=== PATIENT | male | born 1960 | race Caucasian/White ===

== ENCOUNTER 2024-02-13 06:59 | Inpatient (IN) | payer OTHER ==
[~2024-02-13] VITALS: Ht 157.5 cm; Wt 51.4 kg
[2024-02-13] VITALS (32 sets, daily range): BP systolic 75–146; BP diastolic 30–125
[2024-02-13] MEDS ORDERED: CEFTRIAXONE/SODIUM CHLORIDE 1 GM/100 ML PIGGYBACK IV ONE (07:15)
[2024-02-13] MEDS ORDERED: SODIUM CHLORIDE 0.9% 1,000 ML IV ONE (07:15)
[2024-02-13 07:45] LABS: PH, VENOUS 7.485 (7.31-7.41)
[2024-02-13] MEDS ORDERED: DEXAMETHASONE SOD PHOS 4 MG/ML VIAL IV ONE (07:45)
[2024-02-13] MEDS ORDERED: MORPHINE SULFATE 4 MG/ML VIAL IV ONE (07:45)
[2024-02-13] MEDS ORDERED: diphenhydrAMINE HCL 50 MG/ML VIAL IV ONE (07:45)
[2024-02-13] MEDS ORDERED: ETOMIDATE 40 MG/20 ML VIAL IV ONE ×3 (07:45→08:45)
[2024-02-13 07:47] LABS: BASOPHILS 1.8 % (0-2); EOSINOPHILS 0.8 % (0-6); HEMATOCRIT 37.3 % (35.0-50.0); HEMOGLOBIN 12.5 g/dL (12.0-18.0); LYMPHOCYTES 25.1 % (24-44); MCH 33.6 (27-36); MCHC 33.5 g/dl (30-36); MCV 100.3 fl (81-99); MONOCYTES 6.3 % (0-12); PLATELET COUNT 160 K/uL (140-440); RBC 3.71 M/ul (4.3-5.7); RDW 17.4 (10.5-15.0)
[2024-02-13 08:13] LABS: ALBUMIN 2.6 g/dL (3.4-5.0); ALBUMIN/GLOBULIN RATIO 0.59 (1.1-2.4); ANION GAP 15.4 (7-21); BILIRUBIN, TOTAL 0.6 ng/dL (0.2-1.0); BUN/CREATININE RATIO 7.5 (6.0-28.6); CALCIUM 8.2 mg/dL (8.5-10.1); CREATININE, SERUM 0.4 mg/dL (0.70-1.30); MAGNESIUM 1.4 mg/dL (1.8-2.4); POTASSIUM 3.4 mmol/L (3.5-5.1)
[2024-02-13] MEDS ORDERED: SODIUM CHLORIDE 0.9% 500 ML IV PRN ×2 (09:30→10:30)
[2024-02-13] MEDS ORDERED: SODIUM CHLORIDE 0.9% 1,000 ML IV PRN (09:45)
[2024-02-13 10:25] LABS: BILIRUBIN, URINE NEGATIVE (negative); BLOOD/HGB, URINE NEGATIVE (Negative); KETONE, URINE NEGATIVE (Negative); LEUK ESTERASE, URINE SMALL (negative); NITRITE, URINE POSITIVE (negative)
[2024-02-13] MEDS ORDERED: NOREPINEPHRINE BITARTRATE 250 ML IV SCH (10:30)
[2024-02-13 10:33] LABS: CRYSTALS, URINE CALCIUM OXALATE 2+ (0-1+); RED BLOOD CELLS, URINE 0-1 /hpf (0-5); WHITE BLOOD CELLS, URINE 21-40 /HPF (0-5)
[2024-02-13 10:34] LABS: BACTERIA, URINE 3+ /hpf (negative); CASTS, URINE NONE SEEN \\lpf; COLLECTION TYPE, URINE VOID; REFLEX CULTURE, URINE Yes (No)
[2024-02-13 10:40] LABS: AMPHETAMINES, URINE NEGATIVE (NEGATIVE); BARBITURATES, URINE NEGATIVE (NEGATIVE); BENZODIAZEPINE, URINE NEGATIVE (NEGATIVE); BUPRENORPHINE, URINE NEGATIVE (NEGATIVE); CANNABINOID, URINE NEGATIVE (NEGATIVE); COCAINE, URINE NEGATIVE (NEGATIVE); ECSTASY, URINE NEGATIVE (NEGATIVE); FENTANYL, URINE NEGATIVE (NEGATIVE); METHADONE, URINE NEGATIVE (NEGATIVE); OPIATES, URINE NEGATIVE (NEGATIVE); OXYCODONE, URINE NEGATIVE (NEGATIVE); PHENCYCLIDINE, URINE NEGATIVE (NEGATIVE)
--- NOTE | 2024-02-13 11:13 | EKG ---
[facility] [address] [place], [place] [address] Signed Normal sinus rhythm No previous ECGs available Confirmed by Isma Brenner MD ([id number]) on 02/13/2024 11:13:01 AM Electronically Signed By: ISMA BRENNER MD 02/13/24 1113 PATIENT NAME: MELA MICHELLE Electrocardiogram DATE OF : 56 PHYSICIAN: ISMA BRENNER MD REPORT #: [id number] REPORT IS CONFIDENTIAL AND NOT TO BE RELEASED WITHOUT AUTHORIZATION
[2024-02-13] MEDS ORDERED: FOLIC ACID 1 MG/0.2 ML ML IV SCH (11:45)
[2024-02-13] MEDS ORDERED: LORazepam 2 MG/ML VIAL IV/IM PRN (11:45)
[2024-02-13] MEDS ORDERED: THIAMINE HCL 200 MG/2 ML VIAL IV SCH (11:45)
[2024-02-13] MEDS ORDERED: PHARMACY RENAL DOSE ADJUSTMENT 1 DOSE MISC PO SCH (12:00)
[2024-02-13] MEDS ORDERED: MAGNESIUM SULFATE 2 GM/50 ML BAG IV SCH (12:15)
[2024-02-13] MEDS ORDERED: POTASSIUM CHLORIDE 10 MEQ TABCR PO ONE (13:45)
[2024-02-13] MEDS ORDERED: IBUPROFEN 400 MG TAB PO PRN (15:00)
[2024-02-13] MEDS ORDERED: LACTATED RINGER'S 1,000 ML IV ONE (17:00)
[2024-02-13] MEDS ORDERED: PIPERACILLIN/TAZOBACTAM 3.375 GM in DEXTROSE 5% 100 ML IV SCH (22:00)
[2024-02-13] MEDS ORDERED: NICOTINE 21 MG/24 HR 1 EA TDSY TD SCH (23:00)
[2024-02-14] VITALS (32 sets, daily range): BP systolic 73–130; BP diastolic 46–88
[2024-02-14 05:46] LABS: BASOPHILS 0.2 % (0-2); HEMATOCRIT 29.7 % (35.0-50.0); LYMPHOCYTES 12.5 % (24-44); MCH 33.8 (27-36); MCHC 33.6 g/dl (30-36); MCV 100.7 fl (81-99); MONOCYTES 7.4 % (0-12); NEUTROPHILS 79.9 % (39-80); PLATELET COUNT 130 K/uL (140-440); RBC 2.95 M/ul (4.3-5.7); RDW 17.3 (10.5-15.0)
[2024-02-14 05:59] LABS: BUN/CREATININE RATIO 7.14 (6.0-28.6); CALCIUM 7.5 mg/dL (8.5-10.1); CREATININE, SERUM 0.56 mg/dL (0.70-1.30); MAGNESIUM 1.6 mg/dL (1.8-2.4); PHOSPHORUS, INORGANIC 2.7 mg/dL (2.5-4.9)
[2024-02-14] MEDS ORDERED: MAGNESIUM SULFATE 2 GM/50 ML BAG IV SCH (06:30)
[2024-02-14] MEDS ORDERED: ENOXAPARIN SODIUM 40 MG/0.4 ML SYR SUB-Q SCH (09:00)
[2024-02-14] MEDS ORDERED: ALBUTEROL/IPRATROPIUM 3 ML NEB INH PRN (09:15)
[2024-02-14] MEDS ORDERED: LACTATED RINGER'S 1,000 ML IV ONE (16:45)
[2024-02-14] MEDS ORDERED: ACETAMINOPHEN 500 MG TAB PO PRN (22:15)
[2024-02-15] VITALS (10 sets, daily range): BP systolic 100–144; BP diastolic 62–81
[2024-02-15 05:23] LABS: BASOPHILS 3.2 % (0-2); EOSINOPHILS 0.4 % (0-6); HEMATOCRIT 30.6 % (35.0-50.0); HEMOGLOBIN 10.2 g/dL (12.0-18.0); LYMPHOCYTES 24.5 % (24-44); MCH 33.3 (27-36); MCHC 33.4 g/dl (30-36); MCV 99.8 fl (81-99); MONOCYTES 6.1 % (0-12); NEUTROPHILS 65.8 % (39-80); PLATELET COUNT 108 K/uL (140-440); RBC 3.07 M/ul (4.3-5.7); RDW 17.4 (10.5-15.0)
[2024-02-15 05:35] LABS: ANION GAP 12.7 (7-21); BUN/CREATININE RATIO 4.08 (6.0-28.6); CALCIUM 7.8 mg/dL (8.5-10.1); CREATININE, SERUM 0.49 mg/dL (0.70-1.30); MAGNESIUM 1.6 mg/dL (1.8-2.4); PHOSPHORUS, INORGANIC 2.9 mg/dL (2.5-4.9); POTASSIUM 3.7 mmol/L (3.5-5.1)
[2024-02-15] MEDS ORDERED: MAGNESIUM SULFATE 2 GM/50 ML BAG IV SCH (07:00)
[2024-02-15] MEDS ORDERED: POLYETHYLENE GLYCOL 3350 1 PACKET PO ONE (07:30)
[2024-02-16] VITALS (8 sets, daily range): BP systolic 100–124; BP diastolic 65–77
[2024-02-16 05:33] LABS: BASOPHILS 0.8 % (0-2); HEMATOCRIT 32.3 % (35.0-50.0); HEMOGLOBIN 10.9 g/dL (12.0-18.0); LYMPHOCYTES 26.3 % (24-44); MCH 33.5 (27-36); MCHC 33.6 g/dl (30-36); MCV 99.6 fl (81-99); MONOCYTES 8.1 % (0-12); NEUTROPHILS 63.8 % (39-80); PLATELET COUNT 121 K/uL (140-440); RBC 3.24 M/ul (4.3-5.7); RDW 17.3 (10.5-15.0)
[2024-02-16 05:47] LABS: ANION GAP 14.9 (7-21); BUN/CREATININE RATIO 6.38 (6.0-28.6); CALCIUM 8.4 mg/dL (8.5-10.1); CREATININE, SERUM 0.47 mg/dL (0.70-1.30); MAGNESIUM 1.5 mg/dL (1.8-2.4); PHOSPHORUS, INORGANIC 3.6 mg/dL (2.5-4.9); POTASSIUM 3.9 mmol/L (3.5-5.1)
[2024-02-16] MEDS ORDERED: MAGNESIUM SULFATE 2 GM/50 ML BAG IV SCH (07:00)
[2024-02-16] MEDS ORDERED: CEFTRIAXONE/SODIUM CHLORIDE 1 GM/100 ML PIGGYBACK IV SCH (09:00)
[2024-02-17 05:14] VITALS: BP 125/67
[2024-02-17 05:27] VITALS: BP 125/67
[2024-02-17 09:28] VITALS: BP 105/54
[2024-02-17] MEDS ORDERED: ACETAMINOPHEN 500 MG TAB PO PRN (09:45)
[2024-02-17 10:00] VITALS: BP 106/62
[2024-02-17] MEDS ORDERED: SPIRIVA18 MCG INH (10:01)
[2024-02-17] MEDS ORDERED: VENTOLIN HFA18 GM INH (10:02)
[2024-02-17] MEDS ORDERED: LEVOFLOXACIN750 MG PO (10:03)
[2024-02-17 12:03] VITALS: BP 106/62
== END 2024-02-17 13:03 | disposition home or self-care (01) | DRG 871 ==
LOC: ED 06:59 → CCU 11:39 → MS 02-15 16:00
PROVIDERS: Emergency Medicine; Family Medicine; ADMIT Student in an Organized Health Care Education/Training Program; ATTEND Student in an Organized Health Care Education/Training Program
PROC: 3E03329 Introduction of Other Anti-infective into Peripheral Vein, Percutaneous Approach (ICD-10-PCS; principal; 2024-02-13)
PROC: 3E033XZ Introduction of Vasopressor into Peripheral Vein, Percutaneous Approach (ICD-10-PCS; 2024-02-13)
PROC: 05HY33Z Insertion of Infusion Device into Upper Vein, Percutaneous Approach (ICD-10-PCS; 2024-02-13)
DX: A41.9 Sepsis, unspecified organism (principal); R65.21 Severe sepsis with septic shock; N12 Tubulo-interstitial nephritis, not specified as acute or chronic; Z59.00 Homelessness unspecified; E87.0 Hyperosmolality and hypernatremia; E87.20 Acidosis, unspecified; J98.11 Atelectasis; Z66 Do not resuscitate; L89.152 Pressure ulcer of sacral region, stage 2; J44.9 Chronic obstructive pulmonary disease, unspecified; I73.9 Peripheral vascular disease, unspecified; E87.6 Hypokalemia; E83.42 Hypomagnesemia; K44.9 Diaphragmatic hernia without obstruction or gangrene; F10.10 Alcohol abuse, uncomplicated; F22 Delusional disorders; I50.9 Heart failure, unspecified; Z89.511 Acquired absence of right leg below knee; Z89.612 Acquired absence of left leg above knee; Z99.3 Dependence on wheelchair; Z95.1 Presence of aortocoronary bypass graft; R68.0 Hypothermia, not associated with low environmental temperature
CPT/HCPCS: 36415; 36592; 70450; 71045; 73560; 74177; 80048; 80053; 80307; 81001; 82010; 82040; 82140; 82553; 82803; 83605; 83735; 83880; 84100; 85025; 87040; 87088; 94640; 94667; 94760; 94762; 97110; 97161; 97165; A9270; G0480; J0696; J1100; J1200; J1650; J2060; J2543; J3411; J3475; J7030; J7040; J7121; Q9967

== ENCOUNTER 2024-02-19 04:01 | Emergency (ER) | payer OTHER ==
[~2024-02-19] VITALS: Ht 157.5 cm; Wt 45.0 kg
[~2024-02-19 04:01] MED LIST: LEVOFLOXACIN750 MG PO; SPIRIVA18 MCG INH; VENTOLIN HFA18 GM INH
--- OUTSIDE RECORDS SUMMARY | 2024-02-19 04:02 | XMS ---
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 ED/UCC VISIT TRACKING (12 MO.) 02/19/2024 04:02 [facility] [place] TYPE: Emergency COMPLAINT: - MEDICAL 02/13/2024 06:59 [facility] [place] TYPE: Emergency COMPLAINT: - FALL 02/02/2024 16:35 [facility] Geoffrey HECK (Geoffrey Hale) TYPE: Emergency DIAGNOSES: - Pain in left leg - Pain in right leg - Vomiting, unspecified - bilateral leg pain,vomiting - Emesis - Leg Pain 01/01/2024 18:20 [facility] (Geoffrey Hale) TYPE: Emergency DIAGNOSES: - Acute respiratory failure with hypoxia - Alcohol use, unspecified with intoxication, uncomplicated - Chronic obstructive pulmonary disease with (acute) exacerbation - Abdominal Pain - Altered Mental Status 09/22/2023 23:34 [facility] [place] TYPE: Emergency DIAGNOSES: - Headache, unspecified 09/10/2023 22:45 [facility] [place] TYPE: Emergency 08/26/2023 18:34 [facility] [place] TYPE: Emergency DIAGNOSES: - Unspecified injury of head, initial encounter 07/15/2023 09:55 [facility] [place] TYPE: Emergency DIAGNOSES: 29804. Worms 49390. Worms/helminths 63840. Cellulitis of right lower limb 02918. Other injury of unspecified body region, initial encounter INPATIENT VISIT TRACKING (12 MO.) 02/13/2024 11:39 [facility] [place] TYPE: Medical Surgical COMPLAINT: - SEPSIS/UTI DIAGNOSES: - Acidosis, unspecified - Acquired absence of left leg above knee - Acquired absence of right leg below knee - Alcohol abuse, uncomplicated - Atelectasis - Chronic obstructive pulmonary disease, unspecified - Delusional disorders - Dependence on wheelchair - Diaphragmatic hernia without obstruction or gangrene - Do not resuscitate - Heart failure, unspecified - Homelessness unspecified - Hyperosmolality and hypernatremia - Hypokalemia - Hypomagnesemia - Peripheral vascular disease, unspecified - Presence of aortocoronary bypass graft - Pressure ulcer of sacral region, stage 2 - Sepsis, unspecified organism - Severe sepsis with septic shock - Tubulo-interstitial nephritis, not specified as acute or chronic 01/01/2024 18:20 [facility] (Geoffrey Hale) TYPE: Medical Surgical DIAGNOSES: - Acute respiratory failure with hypoxia - Alcohol dependence with withdrawal delirium - Alcohol use, unspecified with intoxication, uncomplicated - Anxiety disorder, unspecified - Chronic obstructive pulmonary disease with (acute) exacerbation - Encounter for palliative care - Homelessness unspecified - Nicotine dependence, cigarettes, uncomplicated - Non-pressure chronic ulcer of unspecified part of right lower leg limited to breakdown of skin - Other malaise - Other specified counseling - Phantom limb syndrome with pain - Unspecified protein-calorie malnutrition - Unspecified severe protein-calorie malnutrition - Unspecified toxic encephalopathy 09/10/2023 22:45 [facility] TYPE: Surgery DIAGNOSES: - Alcohol dependence with withdrawal, uncomplicated - Alcoholic cirrhosis of liver without ascites - Cellulitis of right lower limb - Homelessness unspecified - Hypokalemia - Hypomagnesemia - Moderate protein-calorie malnutrition - Nausea with vomiting, unspecified - Pneumonitis due to inhalation of food and vomit - Sepsis, unspecified organism - Severe sepsis with septic shock 04/28/2023 17:56 [facility] TYPE: General Medicine DIAGNOSES: . Alcohol use, unspecified with withdrawal, uncomplicated . Cellulitis of right lower limb [email or web address]
[2024-02-19] MEDS ORDERED: KETOROLAC TROMETHAMINE 30 MG/ML VIAL IM ONE (04:30)
[2024-02-19 06:45] VITALS: BP 118/68
== END 2024-02-19 06:45 | disposition left against medical advice (07) ==
LOC: ED 04:01
DX: K40.90 Unilateral inguinal hernia, without obstruction or gangrene, not specified as recurrent (principal); F10.129 Alcohol abuse with intoxication, unspecified; I70.221 Atherosclerosis of native arteries of extremities with rest pain, right leg; M62.269 Nontraumatic ischemic infarction of muscle, unspecified lower leg; Z95.828 Presence of other vascular implants and grafts; Z53.29 Procedure and treatment not carried out because of patient's decision for other reasons; Z59.00 Homelessness unspecified; Z99.3 Dependence on wheelchair; Z79.899 Other long term (current) drug therapy
CPT/HCPCS: 80053; 80307; 83605; 85025; 85379; 96372; 99283; G0480; J1885

== ENCOUNTER 2024-04-06 20:47 | Inpatient (IN) | payer MEDICARE ==
[~2024-04-06] VITALS: Ht 157.5 cm; Wt 49.2 kg
--- OUTSIDE RECORDS SUMMARY | 2024-04-06 20:48 | XMS ---
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 ED/UCC VISIT TRACKING (12 MO.) 04/06/2024 20:48 [facility] [place] TYPE: Emergency COMPLAINT: - EDWARDS BITE 02/25/2024 16:58 [facility] TYPE: Emergency DIAGNOSES: - Alcohol use, unspecified with intoxication, unspecified - Non-pressure chronic ulcer of back with unspecified severity - Rectal Pain 02/24/2024 07:32 [facility] [place] (Geoffrey Hale) TYPE: Emergency DIAGNOSES: - Alcohol use, unspecified with intoxication, uncomplicated - Alcohol Intoxication 02/23/2024 10:10 [facility] [place] (Geoffrey Hale) TYPE: Emergency DIAGNOSES: - Acquired absence of left leg above knee - Acquired absence of right leg below knee - Alcohol dependence, uncomplicated - Other injury of unspecified body region, initial encounter - Leg Pain (Non-traumatic) - wound check 02/22/2024 14:27 [facility] [place] (Geoffrey Hale) TYPE: Emergency DIAGNOSES: - Procedure and treatment not carried out because of patient's decision for other reasons - ambulance - Extremity Pain 02/19/2024 04:02 [facility] [place] TYPE: Emergency COMPLAINT: - MEDICAL DIAGNOSES: - Alcohol abuse with intoxication, unspecified - Atherosclerosis of [place] arteries of extremities with rest pain, right leg - Dependence on wheelchair - Homelessness unspecified - Nontraumatic ischemic infarction of muscle, unspecified lower leg - Other fci (current) drug therapy - Presence of other vascular implants and grafts - Procedure and treatment not carried out because of patient's decision for other reasons - Right lower quadrant pain - Unilateral inguinal hernia, without obstruction or gangrene, not specified as recurrent 02/13/2024 06:59 [facility] [place] TYPE: Emergency COMPLAINT: - FALL 02[facility]02/2024 16[facility] DIAGNOSES: - Pain in left leg - Pain in right leg - Vomiting, unspecified - bilateral leg pain,vomiting - Emesis - Leg Pain 01/01/2024 18:20 [facility] (Geoffrey Hale) TYPE: Emergency DIAGNOSES: - Acute respiratory failure with hypoxia - Alcohol use, unspecified with intoxication, uncomplicated - Chronic obstructive pulmonary disease with (acute) exacerbation - Abdominal Pain - Altered Mental Status 09/22/2023 23:34 [facility] [place] TYPE: Emergency DIAGNOSES: - Headache, unspecified 09/10/2023 22:45 [facility] [place] TYPE: Emergency 08/26/2023 18:34 [facility] [place] TYPE: Emergency DIAGNOSES: - Unspecified injury of head, initial encounter 07/15/2023 09:55 [facility] [place] TYPE: Emergency DIAGNOSES: 96718. Worms 13158. Worms/helminths 39997. Cellulitis of right lower limb . Other injury of unspecified body region, initial encounter INPATIENT VISIT TRACKING (12 MO.) 02/13/2024 11:39 [facility] [place] TYPE: Medical Surgical COMPLAINT: - SEPSIS/UTI DIAGNOSES: - Acidosis, unspecified - Acidosis, unspecified - Acquired absence of left leg above knee - Acquired absence of left leg above knee - Acquired absence of right leg below knee - Acquired absence of right leg below knee - Alcohol abuse, uncomplicated - Alcohol abuse, uncomplicated - Atelectasis - Atelectasis - Chronic obstructive pulmonary disease, unspecified - Chronic obstructive pulmonary disease, unspecified - Delusional disorders - Delusional disorders - Dependence on wheelchair - Dependence on wheelchair - Diaphragmatic hernia without obstruction or gangrene - Diaphragmatic hernia without obstruction or gangrene - Do not resuscitate - Do not resuscitate - Heart failure, unspecified - Heart failure, unspecified - Homelessness unspecified - Homelessness unspecified - Hyperosmolality and hypernatremia - Hyperosmolality and hypernatremia - Hypokalemia - Hypokalemia - Hypomagnesemia - Hypomagnesemia - Hypothermia, not associated with low environmental temperature - Hypothermia, not associated with low environmental temperature - Peripheral vascular disease, unspecified - Peripheral vascular disease, unspecified - Presence of aortocoronary bypass graft - Presence of aortocoronary bypass graft - Pressure ulcer of sacral region, stage 2 - Pressure ulcer of sacral region, stage 2 - Sepsis, unspecified organism - Severe sepsis with septic shock - Severe sepsis with septic shock - Tubulo-interstitial nephritis, not specified as acute or chronic - Tubulo-interstitial nephritis, not specified as acute or chronic 01/01/2024 18:20 [facility] (Geoffrey Hale) TYPE: Medical Surgical [...] malnutrition - Unspecified toxic encephalopathy 09/10/2023 22:45 [facility] TYPE: Surgery DIAGNOSES: - Alcohol dependence with withdrawal, uncomplicated - Alcoholic cirrhosis of liver without ascites - Cellulitis of right lower limb - Homelessness unspecified - Hypokalemia - Hypomagnesemia - Moderate protein-calorie malnutrition - Nausea with vomiting, unspecified - Pneumonitis due to inhalation of food and vomit - Sepsis, unspecified organism - Severe sepsis with septic shock 04/28/2023 17:56 [facility] TYPE: General Medicine DIAGNOSES: 26956. Alcohol use, unspecified with withdrawal, uncomplicated [id number]. Cellulitis of right lower limb [email or web address]
[2024-04-06] MEDS ORDERED: diphenhydrAMINE HCL 50 MG/ML VIAL IV ONE (23:00)
[2024-04-06] MEDS ORDERED: DEXAMETHASONE SOD PHOS 4 MG/ML VIAL IV ONE (23:00)
[2024-04-06 23:11] LABS: ALBUMIN 2.4 g/dL (3.4-5.0); ALBUMIN/GLOBULIN RATIO 0.53 (1.1-2.4); ANION GAP 28.2 (7-21); BILIRUBIN, TOTAL 1.1 ng/dL (0.2-1.0); BUN/CREATININE RATIO 11.59 (6.0-28.6); CALCIUM 7.3 mg/dL (8.5-10.1); CREATININE, SERUM 0.69 mg/dL (0.70-1.30); POTASSIUM 3.2 mmol/L (3.5-5.1); PROTEIN, TOTAL 6.9 g/dL (6.4-8.2)
[2024-04-06] MEDS ORDERED: DEXTROSE 50% 50 ML SYR IV ONE (23:30)
[2024-04-06] MEDS ORDERED: SODIUM CHLORIDE 0.9% 500 ML IV PRN (23:45)
[2024-04-06] MEDS ORDERED: IBUPROFEN 600 MG TAB PO ONE (23:45)
[2024-04-06] MEDS ORDERED: ACETAMINOPHEN 500 MG TAB PO ONE (23:45)
[2024-04-07] VITALS (47 sets, daily range): BP systolic 65–171; BP diastolic 33–104
[2024-04-07] MEDS ORDERED: MAGNESIUM SULFATE 2 GM/50 ML BAG IV ONE (00:05)
[2024-04-07] MEDS ORDERED: DAPTOmycin 500 MG/10 ML VIAL ONE (00:09)
[2024-04-07] MEDS ORDERED: CEFTRIAXONE/SODIUM CHLORIDE 2 GM/100 ML PIGGYBACK IV ONE (00:15)
[2024-04-07] MEDS ORDERED: LORazepam 2 MG/ML VIAL IV ONE (00:15)
[2024-04-07] MEDS ORDERED: DAPTOmycin 500 MG/10 ML VIAL IV ONE (00:45)
[2024-04-07 01:03] LABS: BASOPHILS 0.1 % (0-2); EOSINOPHILS 0.1 % (0-6); HEMATOCRIT 28.8 % (35.0-50.0); HEMOGLOBIN 9.4 g/dL (12.0-18.0); LYMPHOCYTES 1.5 % (24-44); MCH 31.8 (27-36); MCHC 32.8 g/dl (30-36); MCV 96.8 fl (81-99); MONOCYTES 3.1 % (0-12); NEUTROPHILS 95.2 % (39-80); PLATELET COUNT 145 K/uL (140-440); RBC 2.97 M/ul (4.3-5.7); RDW 20.1 (10.5-15.0)
[2024-04-07] MEDS ORDERED: SODIUM CHLORIDE 0.9% 1,000 ML IV ONE (01:45)
[2024-04-07] MEDS ORDERED: ETOMIDATE 40 MG/20 ML VIAL ONE (01:59)
[2024-04-07] MEDS ORDERED: ETOMIDATE 40 MG/20 ML VIAL IV ONE (02:00)
[2024-04-07] MEDS ORDERED: SODIUM CHLORIDE 0.9% 1,000 ML IV SCH ×4 (02:45→08:00)
[2024-04-07] MEDS ORDERED: ACETAMINOPHEN 325 MG TAB PO PRN ×2 (02:45→08:00)
[2024-04-07] MEDS ORDERED: ondansetron HCL 4 MG/2 ML VIAL IV PRN ×2 (02:45→08:00)
[2024-04-07] MEDS ORDERED: KETOROLAC TROMETHAMINE 15 MG/ML VIAL IV PRN (03:00)
[2024-04-07 03:30] LABS: BILIRUBIN, URINE NEGATIVE (negative); BLOOD/HGB, URINE TRACE-I (Negative); KETONE, URINE TRACE (Negative); LEUK ESTERASE, URINE SMALL (negative); NITRITE, URINE POSITIVE (negative); PH, URINE 5.5 (5-7)
[2024-04-07] MEDS ORDERED: PREGABALIN 50 MG CAP PO ONE (03:30)
[2024-04-07 03:40] LABS: RED BLOOD CELLS, URINE 0-1 /hpf (0-5)
[2024-04-07 03:41] LABS: BACTERIA, URINE 2+ /hpf (negative); CASTS, URINE HYALINE 1+ \\lpf; COLLECTION TYPE, URINE CLEAN CATCH; CRYSTALS, URINE NONE SEEN (0-1+); EPITHELIAL CELLS, URINE SQUAMOUS 2+ /lpf (0-1+); REFLEX CULTURE, URINE No (No); WHITE BLOOD CELLS, URINE 21-40 /HPF (0-5)
--- NOTE | 2024-04-07 04:30 | NUR ---
REPORT RECEIVED FROM MUD TANK OPERATOR ADAM. pt TRANSFERRED TO CCU 130 VIA STRETCHER. TRANSFERRED TO HOSPITAL BED 2PA WITH DRAW SHEET. INCONTINENT OF STOOL, ATTENDS CHANGED, BARRIER CREAM APPLIED. pt COMPLAINS OF PAIN IN RIGHT STUMP, DRESSING CDI WITH FARA NUGENT. pt STATES "I JUST WANT TO HAVE THIS LEG CHOPPED OFF LIKE THE LEFT". REQUESTS TYLENOL, pt EDUCATED ON TYLENOL ADMINISTRATION IN ER, pt NOW STATES "IT'S KICKING IN NOW". CLOSING EYES. PICTURES OF WOUNDS, ROLF AREA PLACED IN CHART. ASSESSMENT COMPLETE. SPO2 DROPS TO LOW 80S ON RA, 2L OXYGEN BY NC APPLIED. SANDWICH BOX PROVIDED. ICE WATER IN REACH. TRIPLE LUMEN FLUSHED WNL, BRISK BLOOD RETURN. IV IN LEFT ARM SL. BED ALARM ON. BED IN LOW POSITION. CALL LIGHT IN REACH. URINAL PROVIDED.
--- NOTE | 2024-04-07 05:14 | NUR ---
SPO2 NOW 96-98% WITH 2L OXYGEN BY NC IN PLACE, TITRATED TO RA. pt RESTING IN BED WITH EYES CLOSED, BREATHING UNLABORED.
--- NOTE | 2024-04-07 05:26 | NUR ---
MELA IS ON AND OFF OXYGEN WHEN HE SLEEPS DUE TO SPO2 DESATURATIONS.
--- NOTE | 2024-04-07 05:58 | NUR ---
PHONE CALL TO MD BY EMBEDDED SOFTWARE DEVELOPMENT ENGINEER, UPDATED ON BP 76/49 (59), HR 75. pt ALERT AND ORIENTED. NEW ORDERS RECEIVED FOR LABS, IVF BOLUS. ORDERS VERIFIED USING REPEAT BACK METHOD. LABS DRAWN FROM IJ PER PROTOCOL. IVF BOLUS NOW INFUSING. pt RESTING IN BED WITH EYES CLOSED, BREATHING EQUAL AND UNLABORED. NO DISTRESS NOTED.
[2024-04-07 06:01] LABS: BASOPHILS 0.3 % (0-2); HEMATOCRIT 27.8 % (35.0-50.0); HEMOGLOBIN 9.2 g/dL (12.0-18.0); LYMPHOCYTES 2.2 % (24-44); MCH 31.8 (27-36); MCV 96.4 fl (81-99); NEUTROPHILS 93.5 % (39-80); PLATELET COUNT 127 K/uL (140-440); RBC 2.89 M/ul (4.3-5.7); RDW 19.9 (10.5-15.0)
[2024-04-07 06:18] LABS: ALBUMIN 1.7 g/dL (3.4-5.0); ALBUMIN/GLOBULIN RATIO 0.46 (1.1-2.4); ANION GAP 12.7 (7-21); BILIRUBIN, TOTAL 1.2 ng/dL (0.2-1.0); BUN/CREATININE RATIO 14.1 (6.0-28.6); CALCIUM 6.8 mg/dL (8.5-10.1); CREATININE, SERUM 0.78 mg/dL (0.70-1.30); MAGNESIUM 2.3 mg/dL (1.8-2.4); PHOSPHORUS, INORGANIC 4.8 mg/dL (2.5-4.9); POTASSIUM 2.7 mmol/L (3.5-5.1); PROTEIN, TOTAL 5.4 g/dL (6.4-8.2)
--- NOTE | 2024-04-07 06:42 | NUR ---
PHONE CALL TO , NOTIFIED OF POTASSIUM, MG LABS. TO PLACE ORDERS.
[2024-04-07] MEDS ORDERED: MAGNESIUM SULFATE 0 ML IV ONE (06:58)
--- NOTE | 2024-04-07 07:10 | NUR ---
pt SLEEPING, AWAKENS TO VOICE, IRRITABLE. LARGE INCONTINENCE OF URINE, ATTENDS AND CHUX CHANGED. REPOSITIONED WITH PILLOW UNDER RIGHT HIP PER REQUEST. WARM BLANKET PROVIDED. IVF INFUSING WNL. BED ALARM ON. CALL LIGHT IN REACH.
--- NOTE | 2024-04-07 08:01 | NUR ---
REPORT RECEIVED FROM HILARIO FREITAS. PT RESTING IN BED WITH EYES CLOSED, RESP EVEN AND UNLABORED. RESPONDS TO VERBAL STIMULI, SOMEWHAT IRRITABLE BUT GOES BACK TO SLEEP. ASSESSMENT DONE, BP'S NOTED, WILL DISCUSS WITH .
--- NOTE | 2024-04-07 08:14 | NUR ---
DISCUSSED BP WITH MD, WILL CONT TO MONITOR FOR NOW.
[2024-04-07] MEDS ORDERED: ENOXAPARIN SODIUM 40 MG/0.4 ML SYR SUB-Q SCH (09:00)
[2024-04-07] MEDS ORDERED: POTASSIUM CHLORIDE 40 MEQ,LIDOCAINE HCL 1% 40 MG in DEXTROSE 5% 250 ML IV ONE (09:00)
[2024-04-07] MEDS ORDERED: DAPTOmycin 500 MG/10 ML VIAL IV SCH ×4 (09:00→21:00)
--- NOTE | 2024-04-07 09:51 | NUR ---
PT DENIES PAIN MED OFFER, GRUMPY THIS AM WHEN NURSE OFFERED COFFEE, BREAKFAST TO PT HOB UP AND AM MEDS GIVEN, CALL LIGHT IN REACH.
--- NOTE | 2024-04-07 10:40 | NUR ---
ATTEMPT TO SPEAK WITH PATIENT. LOUDLY KNOCKED, CALL HIS NAME. HE DOES NOT OPEN HIS EYES. STAFF STATE HE WAKES EASILY FOR THEM. NOTIFIED HE DID NOT RESPOND WHEN IN ROOM, APPEARS TO BE SLEEPING. WILL RETURN FOR ASSESSMENT LATER TODAY.
--- NOTE | 2024-04-07 11:05 | NUR ---
PT CALL LIGHT ON, REQUESTING ICE WATER. FRESH ICE WATER PROVIDED. CALL LIGHT WITHIN REACH, DENIES ANY FURTHER NEEDS AT THIS TIME.
--- NOTE | 2024-04-07 11:13 | NUR ---
IN ROOM WITH DR AND PT, PT C/O PAIN IN LEGS AND USES DRUGS AND ETOH FOR COPING AND PAIN. 3 DAYS AGO LAST ETOH. ADMITS TO SMOKING METH RECENTLY, 2 DAYS AGO. SMOKE CIGARRETTES. PT IS RESTLESS, AND AGITATED. REPORTS LOOSE STOOLS. BED ALARM ON, CALL LIGHT IN REACH. HR 73/52 (60) HR 70 - DR IN ROOM.
--- NOTE | 2024-04-07 11:47 | NUR ---
VISITED DURING SPIRITUAL CARE ROUNDS. PT DENIES SPIRITUAL CARE NEEDS, DESCRIBED DESIRES FOR TREATMENT, ACKNOWLEDGE USE OF SUBSTANCES FOR PAIN CONTROL. NUCLEAR FUELS RESEARCH ENGINEER PROVIDED SUPPORTIVE PRESENCE, FACILITATED LIFE REVIEW, PROVIDED ANTICIPATORY GUIDANCE, PRAYER. PT EXPRESSED GRATITUDE, SARAH.
[2024-04-07] MEDS ORDERED: PHARMACY RENAL DOSE ADJUSTMENT 1 DOSE MISC PO SCH (12:00)
--- NOTE | 2024-04-07 12:43 | NUR ---
IN TO SEE PT AND DO ASSESSMENT, C/O PAIN. LYRICA GIVEN PER EMAR. PT HAS EATEN MOST OF HIS LUNCH, DENIES NEEDS AT THIS TIME.
[2024-04-07] MEDS ORDERED: TYLENOL EXTRA500 MG PO (12:59)
--- NOTE | 2024-04-07 12:59 | NUR ---
MED REC COMPLETE
[2024-04-07] MEDS ORDERED: PREGABALIN 50 MG CAP PO SCH (13:00)
--- NOTE | 2024-04-07 13:00 | NUR ---
PT WAS INC URINE, BED CHANGE AND BED BATH DONE. PT IS COMPLIANT WITH CARES, DOES C/O PAIN TO TOUCH ON HIP,BUTTOCKS AND SCROTAL AREA. BANDAGE ON LEG CDI, PT INFORMED OF WOUND CARE CONSULT AND WAITING ON WOUND NURSE AND HE IS AGREEABLE TO THAT. IVF BOLUS STARTED PER DR GOODEN INFUSING. PT REPOSITIONED ONTO LEFT SIDE.
--- NOTE | 2024-04-07 13:02 | NUR ---
UPON ENTERING ROOM, PATIENT STATES HE WON'T TALK WITH THIS NURSE UNLESS SOMEONE GETS HIM A PILL FOR HIS LEG. ERIKA RN, NOTIFIED. PATIENT IS HOMELESS. PREVIOUS HOSPITALIZATION ATTEMPT ASSISTANCE TO GET INTO INPT ETOH REHAB, HE REFUSED. HE WANTED TO GO BACK TO THE STREET. STATES HE NEVER GOT INTO THE [facility] AFTER LAST DC. HE DID STAY IN A [place] X3 NIGHTS THEN WAS BACK ON THE STREET. STATES HE TRIES TO STAY IN THE ASSISTED BUT SOMETIMES HE DOES NOT MAKE IT IN TIME. DISCUSSED POTENTIAL NEED FOR SNF, HE REFUSES TO GO TO SNF. STATES HE HAS GEN[facility]'S PHONE NUMBER WHEN INFORMED HIM [facility] COULD BE OF ASSISTANCE HE DOES NOT BELIEVE THEY WILL BE. DISCUSSED HIS NEED FOR A PCP. STATES HE IS AGREEABLE TO HAVE ASSISTANCE TO GET PCP. HE IS UPSET HE IS NO LONGER IN [place] BUT WILL NOT GO BACK, DAUGHTER LIVES IN [facility], BUT PREVIOUSLY STATED HE COULD NOT STAY WITH HER SHE LIVES IN SECOND FLOOR APARTMENT WITH YOUNG KIDS AND NO ELEVATOR FOR PATIENT TO USE. HE DOES HAVE A WHEELCHAIR. HE REQUESTS NOT TO GET A TON OF PAPER BECAUSE HE HAS NO WHERE TO KEEP IT. THE ONLY PLAN FOR DC HE IS CURRENTLY AGREEABLE TO IS TO HAVE PCP. HE PLANS TO DC TO THE STREET.
[2024-04-07] MEDS ORDERED: LORazepam 2 MG/ML VIAL IV/IM PRN (15:30)
[2024-04-07] MEDS ORDERED: THIAMINE HCL 100 MG,FOLIC ACID 1 MG,MULTIVITAMINS 10 ML in SODIUM CHLORIDE 0.9% 1,000 ML IV ONE (15:30)
[2024-04-07] MEDS ORDERED: LORazepam 1 MG TAB PO PRN (15:30)
--- NOTE | 2024-04-07 16:15 | NUR ---
PT'S WOUNDS ARE CURRENTLY COVERED. AFTER REVIEWING WOUND PHOTOGRAPHS. HE IS GOING TO REQUIRE A SURGICAL CONSULT FOR DEBRIDEMENT, DUE TO ESCHAR AND ADHERENT SLOUGH; THERE ARE ALSO SIGNS OF INFECTION. DEBRIDEMENT OF THIS WOUND IS NOT APPROPRIATE FOR A WOUND CARE NURSE AT THIS TIME.
--- NOTE | 2024-04-07 20:00 | NUR ---
REPORT RECEIVED FROM ZENA JAMES. pt RESTING IN BED AWAKE. IV BANANA BAG INFUSING CENTRAL LINE WNL. pt REQUESTS NICOTINE PATCH, ADDED TO EMAR PER PROTOCOL. CALL LIGHT IN REACH.
[2024-04-07] MEDS ORDERED: NICOTINE 21 MG/24 HR 1 EA TDSY TD SCH (20:15)
--- NOTE | 2024-04-07 21:20 | NUR ---
ASSESSMENT COMPLETE. IJ LUMENS FLUSHED WNL X 3. IV ANTIBIOTIC ADMINISTERED. pt COMPLAINS OF 10/10 PAIN IN RIGHT STUMP. PRN AND SCHEDULED MEDICATIONS ADMINISTERED, SEE EMAR. SANCHEZ IN ROOM DISCUSSING PLAN OF CARE WITH pt. pt YELLING, INSISTENT ON AMPUTATION OF RLE DUE TO PAIN. EDUCATION PROVIDED FROM MD, SURGEON TO FOLLOW. LARGE INCONTINENT VOID, ATTENDS, CHUX CHANGED, PAD PLACED IN BRIEF. pt REFUSES MALE PUREWICK. URINAL IN REACH. MILD TREMORS NOTED, pt DENIES ANY ADDITIONAL SX DTS. REPOSITIONED WITH PILLOW UNDER RIGHT HIP. pt REPOSITIONS SELF FURTHER ONTO PILLOW. CALL LIGHT AND PERSONAL SUPPLIES IN REACH. WARM BLANKETS PROVIDED. LIGHTS OFF IN ROOM.
--- NOTE | 2024-04-07 22:05 | NUR ---
CHECKED ON pt. RESTING IN BED AWAKE, DENIES ANY NEEDS. CALL LIGHT IN REACH. IVF INFUSING CENTRAL LINE WNL.
--- NOTE | 2024-04-07 23:00 | NUR ---
ROUNDED ON pt. RESTING IN BED WATCHING TV. DENIES NEEDS. CALL LIGHT IN REACH.
[2024-04-08] VITALS (24 sets, daily range): BP systolic 74–114; BP diastolic 54–75
--- NOTE | 2024-04-08 00:30 | NUR ---
pt AWAKE. INCONTINENT OF LARGE VOID, ATTENDS, ROLF PAD CHANGED. pt ASSISTS BY TURNING SIDE TO SIDE. BARRIER CREAM APPLIED, REDNESS NOTED. ASSESSMENT COMPLETE. pt AFEBRILE. IVF INFUSING WNL ORDERED. ICE WATER AND CRACKERS PROVIDED PER REQUEST. pt STATES FELT SOB WITH MOVEMENT, WHEEZES AUSCULTATED THROUGHT LUNG LOBES. pt ENDORSES USING INHALER CHRONICALLY. CALL LIGHT IN REACH. BED IN LOW POSITION.
[2024-04-08] MEDS ORDERED: ALBUTEROL SULFATE 0.083% 3 ML VIAL INH PRN (01:00)
--- NOTE | 2024-04-08 01:00 | NUR ---
PHONE CALL TO , NOTIFIED OF pt WHEEZING, TELEPHONE ORDER FOR NEB TREATMENTS PER RT EVAL.
--- NOTE | 2024-04-08 01:21 | NUR ---
pt AWAKE IN BED. REQUESTS NEB TREATMENT, ADMINISTERED AT THIS TIME BY RN SEE EMAR. CALL LIGHT IN REACH.
--- NOTE | 2024-04-08 02:48 | NUR ---
pt RESTING IN BED, EYES CLOSED. SPO2 93% ON RA. NO DISTRESS NOTED.
--- NOTE | 2024-04-08 04:30 | NUR ---
pt RESTING IN BED AWAKE. ASSESSMENT COMPLETE. AFEBRILE. pt DENIES ANY PAIN AT THIS TIME. SANDWICH BOX PROVIDED PER REQUEST. CALL LIGHT IN REACH.
--- NOTE | 2024-04-08 05:15 | NUR ---
CALL LIGHT ANSWERED. pt FINISHED WITH SANDWICH BOX. LARGE INCONTINENT VOID IN ATTENDS, ROLF PAD SATURATED IN URINE. NEW ATTENDS PLACED, BARRIER CREAM APPLIED. pt ASSISTED TO REPOSITION WITH PILLOW UNDER HIP. AM LABS DRAWN FROM IJ, SENT TO LAB. pt DENIES ANY NEEDS AT THIS TIME. CALL LIGHT IN REACH.
[2024-04-08 05:25] LABS: BASOPHILS 0.4 % (0-2); EOSINOPHILS 0.1 % (0-6); HEMATOCRIT 28.3 % (35.0-50.0); HEMOGLOBIN 9.5 g/dL (12.0-18.0); LYMPHOCYTES 7.7 % (24-44); MCH 32.7 (27-36); MCHC 33.6 g/dl (30-36); MCV 97.4 fl (81-99); MONOCYTES 5.5 % (0-12); NEUTROPHILS 86.3 % (39-80); PLATELET COUNT 110 K/uL (140-440); RBC 2.91 M/ul (4.3-5.7); RDW 20.5 (10.5-15.0)
[2024-04-08 06:05] LABS: ALBUMIN 1.5 g/dL (3.4-5.0); ALBUMIN/GLOBULIN RATIO 0.38 (1.1-2.4); ANION GAP 10.8 (7-21); BILIRUBIN, TOTAL 0.5 ng/dL (0.2-1.0); BUN/CREATININE RATIO 21.56 (6.0-28.6); CALCIUM 7.2 mg/dL (8.5-10.1); CREATININE, SERUM 0.51 mg/dL (0.70-1.30); MAGNESIUM 1.6 mg/dL (1.8-2.4); POTASSIUM 2.8 mmol/L (3.5-5.1); PROTEIN, TOTAL 5.4 g/dL (6.4-8.2)
--- NOTE | 2024-04-08 06:09 | NUR ---
pt AWAKE RESTING IN BED. IV PUMP CLEARED, ROOM TIDIED. pt DENIES ANY NEEDS AT THIS TIME.
--- NOTE | 2024-04-08 07:10 | NUR ---
CALL LIGHT ANSWERED, pt COMPLAINS OF 7/10 BACK AND BILATERAL LOWER EXT PAIN. PRN PAIN MEDICATION ADMINISTERED. pt REFUSES REPOSITIONING OFFERED. SHIFTS SELF IN BED. ICE WATER REFILLED AND IN REACH. CALL LIGHT IN REACH.
[2024-04-08] MEDS ORDERED: MAGNESIUM SULFATE 2 GM/50 ML BAG IV ONE (09:00)
[2024-04-08] MEDS ORDERED: POTASSIUM CHLORIDE 10 MEQ TABCR PO ONE (09:00)
[2024-04-08] MEDS ORDERED: POTASSIUM CHLORIDE 40 MEQ,LIDOCAINE HCL 1% 40 MG in DEXTROSE 5% 250 ML IV ONE (09:00)
--- NOTE | 2024-04-08 09:02 | NUR ---
DR. KOTHARI IN ROOM TO SEE PATIENT AT THIS TIME. PLAN OF CARE BEING DISCUSSED. URINAL EMPTIED FOR 175 ML FOUL SMELLING URINE. PT EXPRESSES CONCERNS ABOUT HIS LEGS AND HIS ONGOING FRUSTRATION WITH HIS LOWER LEGS AND HIS ONGOING WOUNDS THAT HE HAS BEEN STRUGGLING TO HEAL FOR "OVER THREE AND A HALF YEARS." WOUND CULTURE TAKEN OF RIGHT STUMP. DR. KOTHARI TALKING WITH PATIENT OVER HIS POTENTIAL PATH FORWARD WITH HIS INFECTED RIGHT STUMP.
[2024-04-08] MEDS ORDERED: MUPIROCIN 22 GM TUBE TOP SCH (09:16)
--- NOTE | 2024-04-08 11:07 | NUR ---
DR. CASTELLANOS IN ROOM TO SEE PATIENT AND DISCUSSING PLAN OF CARE. DR. CASTELLANOS TO SEE ABOUT POTENTIAL TRANSFER FOR VASCULAR SURGERY.
--- NOTE | 2024-04-08 12:36 | NUR ---
DR CASTELLANOS UPDATED ON POSITIVE BLOOD CULTURE- GRAM + COCCI IN PEDS BOTTLE. AWAITING CONSULT FROM [facility], NO NEW ORDERS AT THIS TIME.
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
[2024-04-08] MEDS ORDERED: LACTATED RINGER'S 1,000 ML IV ONE (13:45)
[2024-04-08] MEDS ORDERED: CEFEPIME HCL/D5W 1 GM/100 ML PIGGYBACK IV SCH (14:00)
--- NOTE | 2024-04-08 14:20 | NUR ---
PT PROVIDED TYLENOL FOR PAIN, AND IV BOLUS STARTED PER ORDERS. PT IS SHAKEY AT THIS TIME, ADMITS TO DRINKING DAILY, AND HIS RIGHT HIP HURTS. PT WATCHING FOOTBALL.
--- NOTE | 2024-04-08 15:30 | NUR ---
IV BLOUSE CONTIOUES TO INFUSE, PT INCONTENT OF LARGE VOID.
--- NOTE | 2024-04-08 18:15 | NUR ---
PT ASLEEP WHEN ENTERED THE ROOM, WOKE UP WHEN SPOKEN TOO. REMOVED NICTOINE PATCH AT THIS TIME.
--- NOTE | 2024-04-08 19:31 | NUR ---
REPORT GIVEN TO WELDER PIPE MAKING ALL QUESTIONS ANSWERED.
[2024-04-08] MEDS ORDERED: MAGNESIUM HYDROXIDE/AL HYDROX 30 ML CUP PO PRN (19:45)
--- NOTE | 2024-04-08 19:45 | NUR ---
handoff report received from day shift RN. patient states he is having heart burn and request medication. patient also requesting PRN tylenol for pain. no further needs at this time. call light within reach.
--- NOTE | 2024-04-08 20:35 | NUR ---
patient assessment complete. patient laying awake in bed. PRN tylenol given per EMAR for 6/10 pain. patient right side stump dressing C/D/I. central line WNL. patient afebrile, vital signs stable. patient has no needs at this time. call light within reach.
--- NOTE | 2024-04-08 22:45 | NUR ---
patient incontinent of stool and urine. patient linen changed, and new brief placed. fresh ice water provided. no further needs at this time. call light within reach.
[2024-04-09] VITALS (21 sets, daily range): BP systolic 82–109; BP diastolic 58–87
--- NOTE | 2024-04-09 00:15 | NUR ---
patient laying awake in bed watching TV. no needs at this time. call light within reach.
--- NOTE | 2024-04-09 02:15 | NUR ---
IN PATIENT ROOM FOR MEDICATION ADMINISTRATION PER EMAR. PATIENT HAS NO NEEDS AT THIS TIME. CALL LIGHT WITHIN REACH.
--- NOTE | 2024-04-09 04:00 | NUR ---
patient incontinent of urine. patient linen changed, new brief applied. patient provided with warm blanket. no further needs at this time. call light within reach.
--- NOTE | 2024-04-09 05:58 | NUR ---
AM LABS DRAWN FROM CENTRAL LINE AND SENT TO LAB. PATIENT HAS NO NEEDS AT THIS TIME. CALL LIGHT WITHIN REACH.
[2024-04-09 06:02] LABS: BASOPHILS 0.4 % (0-2); EOSINOPHILS 0.5 % (0-6); HEMATOCRIT 30.1 % (35.0-50.0); HEMOGLOBIN 9.9 g/dL (12.0-18.0); LYMPHOCYTES 10.9 % (24-44); MCH 32.1 (27-36); MCHC 32.8 g/dl (30-36); MONOCYTES 8.9 % (0-12); NEUTROPHILS 79.3 % (39-80); PLATELET COUNT 106 K/uL (140-440); RBC 3.07 M/ul (4.3-5.7); RDW 20.3 (10.5-15.0)
[2024-04-09 06:17] LABS: ANION GAP 11.2 (7-21); BUN/CREATININE RATIO 15.21 (6.0-28.6); CALCIUM 7.7 mg/dL (8.5-10.1); CREATININE, SERUM 0.46 mg/dL (0.70-1.30); MAGNESIUM 1.4 mg/dL (1.8-2.4); PHOSPHORUS, INORGANIC 1.2 mg/dL (2.5-4.9); POTASSIUM 4.2 mmol/L (3.5-5.1)
--- NOTE | 2024-04-09 07:49 | NUR ---
PATIENT RESTING IN BED, ALERT TO THIS RN STALKING AT BEDSIDE, HE DOES NOT REPORT ANY PAIN OR NAUSEA, HE DECLINES WANTING TO EAT BREAKFAST AT THIS TIME, HE SAID HE WOULD LIKE TO REST LONGER.
[2024-04-09] MEDS ORDERED: MAGNESIUM SULFATE 2 GM/50 ML BAG IV ONE (08:15)
[2024-04-09] MEDS ORDERED: SODIUM PHOSPHATE 30 MMOL in DEXTROSE 5% 250 ML IV ONE (09:00)
--- NOTE | 2024-04-09 09:18 | NUR ---
PATIENT ALERT AND ORIENTED, PATIENT REPORTS HE HAS BEEN INCONTINENT AND NEEDS CHANGED, FULL BED CHANGE PROVIDED, ERIKA RN INTO ASSIST AND PROVIDE SECOND RN SKIN CHECK. PATIENT HAS RED AREA ON COCCYX RIGHT HIP, ALLEVYN PLACED TO COCCYX FOR SKIN PROTECTION AFTER BED BATH WIPE DOWN. PATIENT PROVIDED EDUCATION BY ERIKA FREITAS FOR SKIN CARE, HEALING, PLACEMENT AFTER SURGERY, AND THE IMPORTANCE OF SMOKING CESSATION, STOPPING ALCOHOL AND ALL OTHER RECREATIONAL DRUG USE, PATIENT WAS RECEPTIVE TO EDUCATIONS. TORDOL PRN ADMINISTERED FOR DRESSING CHANGE, PATIENT ASKED TO WAIT ON THAT FOR NOW.
--- NOTE | 2024-04-09 11:24 | NUR ---
PATIENT RESTING IN BED, ALERT TO NAME, HE OPENED HIS EYES WHEN THIS RN ASKED, "RYLEY, YOU DOING OK." HE SAID, "YES." AND NODDED HIS HEAD. RECHECKED B/P AND IS HYPOTENSIVE, IN RANGE THAT HE HAS BEEN OCCASSIONALLY OVER LAST TWO DAYS.
--- NOTE | 2024-04-09 11:34 | NUR ---
UPDATED CALL TO [facility] RESULTED IN NO BED AVAILABLE PLANNED FOR TODAY. PATIENT ALSO HAD RUN OF VENT. BIGEMINY AND INCREASED PVC'S NOW IN NORMAL SINUS RHYTHM. SAID NO INTERVENTIONS NEEDED UNLESS MAP DROPS BELOW 65.
--- NOTE | 2024-04-09 13:21 | NUR ---
PATIENT SITTING UP IN BED, CONSUMED 50% OF LUNCH, REFUSED OFFER OF ENSURE. PATIENT WATCHING FOOTBALL ON TV. MORE EDUCATION ON CESSATION OF ADDICTIONS PATIENT RECEPTIVE TO EDUCATION. DRESSING CHANGED PER INSTRUCTIONS THIS AM SEE ASSESSMENT FOR DETAILS. PATIENT TOLERATED WELL, NO REPORT OF PAIN. CHECKED PATIENT FOR INCONTINENCE, HE IS DRY. URINE NOTED IN URINAL AT BEDSIDE. PATIENT HAS NO FURTHER REQUESTS, CALL LIGHT IN REACH.
[2024-04-09 14:11] LABS: CORTISOL,SERUM 2.2 ug/dL (())
--- NOTE | 2024-04-09 14:55 | NUR ---
PATIENT ALERT AND ORIENTED, HE IS CALLING DOWN HIS ORDER FOR DINNER WHEN THIS RN INTO ROOM TO ROUND AND ADMINISTER ABX SCHEDULED. PATIENT HAS VOIDED 275ML IN URINAL. LYRICA ADMINISTERED PER SCHEDULED DOSE, EDUCATION PROVIDED, PATIENT SAID, "I THINK ITS WORKING, IM NOT SHAKING OR HAVING REALLY ANY PAIN." PATIENT HAS CALL LIGHT IN REACH, NO FURTHER NEEDS AT THIS TIME VOICED WHEN ASKED.
--- NOTE | 2024-04-09 18:00 | NUR ---
PATIENT CALLED TO REPORT THAT HE HAD WET DEPENDS. THIS RN INTO PROVIDE FULL LINEN CHANGE AND CLEAN DEPENDS, PATIENT ABLE TO ASSIST WITH FULL BED MOBILITY. SMALL SOFT FORM STOOL ALSO CLEANED. PATIENT PROVIDED WARM BLANKET. CALL LIGHT IN REACH. PATIENT REPORTS NO OTHER NEEDS AT THIS TIME.
--- NOTE | 2024-04-09 19:09 | NUR ---
PATIENT CALLED NURSES STATION THIS RN INTO ROOM, PATIENT RESTLESS REPORTING SUDDEN PAIN INCREASE AT RIGHT BKA STUMP. PATIENT ADMINISTERED TORDOL AND TYLENOL PRM FOR 6/10 PAIN. PATIENT ALSO REPOSITIONED WITH PILLOWS, RIGHT BKA STUMP ELEVATED ON PILLOW WELL. PATIENT HAS NO FURTHER NEEDS WHEN ASKED, CALL LIGHT IN REACH.
[2024-04-09] MEDS ORDERED: LACTATED RINGER'S 1,000 ML IV PRN (19:30)
[2024-04-09] MEDS ORDERED: LACTATED RINGER'S 1,000 ML IV ONE (19:30)
--- NOTE | 2024-04-09 19:45 | NUR ---
HANDOFF REPORT RECEIVED FROM DAY SHIFT RN. PATIENT IS LAYING AWAKE IN BED WATCHING TV, NO NEEDS AT THIS TIME. CALL LIGHT WITHIN REACH.
--- NOTE | 2024-04-09 20:30 | NUR ---
ASSESSMENT COMPLETE. PATIENT LINEN WET, INCONTINENT OF URINE. PATIENT LINEN CHANGED, NEW BRIEF APPLIED. PATIENT AWAKE IN BED WATCHING TV, DENIES HAVING ANY PAIN AT THIS TIME. PATIENT RIGHT BKA STUMP DRESSING C/D/I. CENTRAL LINE WNL. PATIENT PROVIDED WITH WARM BLANKET, AND FRESH ICE WATER. NO FURTHER NEEDS AT THIS TIME. CALL LIGHT WITHIN REACH.
--- NOTE | 2024-04-09 21:28 | NUR ---
PATIENT PROVIDED WITH APPLESAUCE AND CRACKERS PER REQUEST. NO FURTHER NEEDS AT THIS TIME. CALL LIGHT WITHIN REACH.
--- NOTE | 2024-04-09 23:00 | NUR ---
PATIENT USES CALL LIGHT STATING HE NEEDS CHANGED. PATIENT HAD ONE SMALL BM AND VOID. NEW BRIEF PLACED AND LINEN CHANGED. PATIENT HAS NO FURTHER NEEDS AT THIS TIME. CALL LIGHT WITHIN REACH.
[2024-04-10] VITALS (19 sets, daily range): BP systolic 83–126; BP diastolic 58–81
--- NOTE | 2024-04-10 01:05 | NUR ---
PATIENT RESTING IN BED WITH EYES CLOSED. RESPIRATIONS EVEN AND UNLABORED. NO NEEDS AT THIS TIME. CALL LIGHT WITHIN REACH.
--- NOTE | 2024-04-10 02:04 | NUR ---
patient states he has a headache and is requesting pain medication. PRN Tylenol given per EMAR. patient had episode of incontinence, linen changed and new brief applied. warm blanket provided and patient repositioned in bed. no further needs at this time. call light within reach.
--- NOTE | 2024-04-10 02:37 | NUR ---
PATIENT USES CALL LIGHT WANTING A SNACK. GRAHM CRACKERS AND PEANUT BUTTER PROVIDED PER REQUEST. PATIENT HAS NO FURTHER NEEDS AT THIS TIME. CALL LIGHT WITHIN REACH.
--- NOTE | 2024-04-10 04:20 | NUR ---
patient voids 300cc of urine in urinal. patient states his brief needs changed. patient had small soft bowel movement. new brief applied. patient has no further needs at this time. call light within reach.
--- NOTE | 2024-04-10 05:35 | NUR ---
PRN PAIN MEDICATION ADMINISTERED FOR 7/10 PAIN PER EMAR. PATIENT HAS NO FURTHER NEEDS AT THIS TIME. CALL LIGHT WITHIN REACH.
--- NOTE | 2024-04-10 05:45 | NUR ---
patient AM labs drawn from central line and sent to lab
[2024-04-10 05:53] LABS: BASOPHILS 0.4 % (0-2); EOSINOPHILS 0.8 % (0-6); HEMATOCRIT 27.8 % (35.0-50.0); HEMOGLOBIN 9.3 g/dL (12.0-18.0); MCH 32.1 (27-36); MCHC 33.4 g/dl (30-36); MCV 96.1 fl (81-99); NEUTROPHILS 70.8 % (39-80); PLATELET COUNT 118 K/uL (140-440); RBC 2.89 M/ul (4.3-5.7); RDW 19.8 (10.5-15.0)
[2024-04-10 06:05] LABS: ANION GAP 10.7 (7-21); BUN/CREATININE RATIO 13.04 (6.0-28.6); CALCIUM 7.5 mg/dL (8.5-10.1); CREATININE, SERUM 0.46 mg/dL (0.70-1.30); MAGNESIUM 1.6 mg/dL (1.8-2.4); PHOSPHORUS, INORGANIC 3.3 mg/dL (2.5-4.9); POTASSIUM 3.7 mmol/L (3.5-5.1)
--- NOTE | 2024-04-10 06:30 | NUR ---
RIGHT STUMP DRESSING CHANGED PER ORDER. PATIENT TOLERATED WELL. PATIENT HAS NO NEEDS AT THIS TIME. CALL LIGHT WITHIN REACH.
[2024-04-10] MEDS ORDERED: MAGNESIUM SULFATE 2 GM/50 ML BAG IV ONE (08:45)
[2024-04-10] MEDS ORDERED: ACETAMINOPHEN 500 MG TAB PO PRN (08:45)
[2024-04-10] MEDS ORDERED: HYDROmorphone HCL 1 MG/ML SYR IV PRN (09:00)
[2024-04-10] MEDS ORDERED: NICOTINE 21 MG/24 HR 1 EA TDSY TD SCH (09:00)
[2024-04-10] MEDS ORDERED: MUPIROCIN 22 GM TUBE TOP SCH (09:00)
--- NOTE | 2024-04-10 09:02 | NUR ---
VERBAL ORDER OBTAINED FROM AT MORNING MEETING DUE TO PATIENT 10/10 PAIN AT RIGHT BKA STUMP SITE. PATIENT IS RESTLESS, ANXIOUS AND GRIMACING/MOANING IN PAIN. DILAUDID IV 0.5-1MG PRN FOR NOW. MEDICATION OVERRIDE FOR 10/10 PAIN.
--- NOTE | 2024-04-10 09:38 | NUR ---
PATIENT REPORTS PAIN IS ALREADY SIGNIFICANTLY BETTER, LARGE URINE INCONTINENCE CHANGED, BARRIER CREAM APPLIED TO SKIN. PATIENT HAS FULL BED MOBILITY FOR TURNING TO ASSIST WITH CHANGEING LINENS. HE CONSUMED 75% OF BREAKFAST.
--- NOTE | 2024-04-10 11:38 | NUR ---
VISITED DURING SPIRITUAL CARE ROUNDS. PT APPEARED TO BE SLEEPING. DID NOT DISTURB. PROVIDED PRAYER.
--- NOTE | 2024-04-10 11:58 | NUR ---
PATIENT ALERT AND ORIENTED, HAD OXYIMETRY WIRE TO SENSOR WRAPPED AROUND HIS HAND KINKED OXYMITRY READING DROPPED TO 59%, THIS RN INTO ROOM UNWRAPPED WIRE FROM HAND, OXIMETRY READING THEN 99% ON ROOM AIR. PATIENT VERBALIZED, "I AM DOING GOOD." ASSISTED PATIENT WITH URINALM HE VOIDED 175ML CLEAR YELLOW URINE. PATIENT REPORTS NO OTHER NEEDS AT THIS TIME.
--- NOTE | 2024-04-10 12:18 | NUR ---
PATIENT SITTING UP IN BED TO EAT LUNCH, HE IS COOPERATIVE WITH ALL CARES AND INTERACTIONS. NO NEW CONCERNS OR REQUESTS, CALL LIGHT IN REACH.
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
--- NOTE | 2024-04-10 14:44 | NUR ---
PATIENT SITTING UP IN BED WATCHING TV, HAS VOIDED 200ML CLEAR YELLOW URINE IN URINAL AT BEDSIDE. HE REPORTS PAIN 6/10 AT RIGHT BKA STUMP, TORDOL PRN AND LYRICA SCHEDULED ADMINISTERED. ABX INFUSING. PATIENT COOPERATIVE AND APPROPRIATE WITH ALL CARE AND INTERACTIONS. PATIENT VOICED NO FURTHER NEEDS AT THIS TIME, CALL LIGHT IN REACH, BENY Patel RN WITH CASE MANAGEMENT INTO PATIENT ROOM FOR CASE MANAGEMENT ASSESSMENT/INTAKE.
[2024-04-10] MEDS ORDERED: TRAMADOL HCL 50 MG TAB PO PRN (15:00)
--- NOTE | 2024-04-10 15:46 | NUR ---
PATIENT REQUESTED TO BE SHAVED, SHAVE PROVIDED WITH ELECTRIC SHAVER ASSIGNED TO DAVIDSON BY THIS RN. PATIENT PROVIDED MIRROR AND WAS HAPPY WITH SHAVE
--- NOTE | 2024-04-10 17:09 | NUR ---
PATIENT SITTING UP TO EAT DINNER, HE IS ALERT AND ORIENTED, HE ENDORSES NO PAIN OR NAUSEA AT THIS TIME.
--- NOTE | 2024-04-10 18:02 | NUR ---
PATIENT CONSUMED 75% OF DINNER, HE REPORTS PAIN HAS BEEN WELL MANAGED SINCE ULTRAM ADMINISTERED EARLIER. DRESSING CHNAGED TO RIGHT BKA STUMP. PATIENT TOLERATED WELL WITH NO REPORT OF INCREASED PAIN, DRAINAGE NOTED SEROUS ON DRESSING REMOVED AT DISTAL ULCER. DRESSING AT PROXIMAL ULCER SCANT DRAINAGE SEROUS IN NATURE.
--- NOTE | 2024-04-10 19:33 | NUR ---
PATIENT IV PUMP BEEPING, PATIENT ALERT, HE REPORTS THAT HE WAS UNABLE TO FIND THE URINAL, THAT IS SITTING ON HIS BEDSIDE TABLE, PATIENT REPORTS HE HAD BEEN INCONTINENT OF URINE, PATIENT PROVIDED FULL BED CHANGE, BED BATH. HE IS ABLE TO ROLL FROM SIDE TO SIDE IN BED INDEPENDENTLY FOR LINEN CHANGE. HE REPORTS NO OTHER NEEDS AT THIS TIME. CALL LIGHT IN REACH.
--- NOTE | 2024-04-10 20:07 | NUR ---
RECEIVED REPORT FROM DAY SHIFT RN. PATIENTIS RESTING IN BED NO NEEDS NOTED. CALL LIGHT IN REACH.
--- NOTE | 2024-04-10 20:41 | NUR ---
PATIENTS IV ABX INFUSING PER ORDER. PATIENTS URINAL EMPTIED. INTAKE AND OUTPUT RECORDED. PATIENT ABLE TO REPOSITION SELF IN BED. PATIENT RATES PAIN IN RIGHT LEG AND HEADAHCE A 9/10, PRN MEDICATION GIVEN PER ORDER. PATIENT DENIES ANY SOB OR NAUSEA. PATIENT ASSEMENT COMPLETED. PATIENTS RLE ELEVATED ON PILLOW AND DRESSING IN PLACE AND IS C/D/I. PATIENTS MEDS GIVEN WITH APPLESAUCE AND NO S/SX OF ASPIRATION NOTED. PATIENT DENIES ANY FURTHER NEEDS. CALL LIGHT IN REACH.
--- NOTE | 2024-04-10 21:19 | NUR ---
PATIENTS URINAL EMPTIED. PATIENTS PM MEDS GIVEN PER ORDER. PATIENT DENIES ANY FURTHER NEEDS. CALL LIGHT IN REACH. IV INFUSING PER ORDER.
--- NOTE | 2024-04-10 22:42 | NUR ---
PATIENTS URINAL EMPTIED. PATIENT IS RESTING IN BED WATCHING TV. SNACK PROVIDED. NO FURTHER NEEDS NOTED. CALL LIGHT IN REACH. IV INFUSING PER ORDER.
[2024-04-11] VITALS (24 sets, daily range): BP systolic 92–133; BP diastolic 63–86
--- NOTE | 2024-04-11 00:08 | NUR ---
PATIENTS URINAL EMPTIED. PATIENTS VITALS RECORDED. PATIENT IS AAOX4. PATIENT REPORTS 8/10 PAIN IN HIS RIGHT LEG, PRN MEDICATION GIVEN PER ORDER. PATIENT DENIES ANY SOB OR NAUSEA. PATIENT REPORTS BEING HUNGRY, SANDWICH BOX PROVIDED. FRESH ICE WATER PROVIDED. PATIENTS IV INFUSING PER ORDER. PATIENT DENIES ANY FURTHER NEEDS. CALLL LIGHT IN REACH. PATIENT RESTING IN BED EATING AND WATCHING TV AT THIS TIME.
--- NOTE | 2024-04-11 01:07 | NUR ---
PATIENT IS RESTING IN BED WITH EYES CLOSED, RR 20. NAD NOTED. CALL LIGHT IN REACH.
--- NOTE | 2024-04-11 01:45 | NUR ---
PATIENT IS RESTING IN BED WITH EYES CLOSED, RR 12. NAD NOTED. IV INFUSING PER ORDER. CALL LIGHT IN REACH.
--- NOTE | 2024-04-11 02:30 | NUR ---
PATIENT IS RESTING IN BED WITH EYES CLOSED, RR 15. CALL LIGHT IN REACH. IV INFUSING PER ORDER. PATIENTS URINAL EMPTIED. NAD NOTED.
--- NOTE | 2024-04-11 04:07 | NUR ---
PATIENT IS RESTING IN BED WITH EYES CLOSED, RR 13. CALL LIGHT IN REACH. IV INFUSING PER ORDER.
[2024-04-11 06:27] LABS: HEMATOCRIT 28.8 % (35.0-50.0); HEMOGLOBIN 9.2 g/dL (12.0-18.0); RBC 2.92 M/ul (4.3-5.7)
[2024-04-11 06:30] LABS: BASOPHILS 0.6 % (0-2); EOSINOPHILS 1.4 % (0-6); LYMPHOCYTES 16.8 % (24-44); MCH 31.7 (27-36); MCHC 32.1 g/dl (30-36); MCV 98.5 fl (81-99); MONOCYTES 10.1 % (0-12); NEUTROPHILS 71.1 % (39-80); PLATELET COUNT 148 K/uL (140-440); RDW 19.8 (10.5-15.0)
[2024-04-11 06:50] LABS: ALBUMIN 1.5 g/dL (3.4-5.0); ALBUMIN/GLOBULIN RATIO 0.38 (1.1-2.4); ANION GAP 11.1 (7-21); BILIRUBIN, TOTAL 0.6 ng/dL (0.2-1.0); BUN/CREATININE RATIO 13.95 (6.0-28.6); CALCIUM 7.7 mg/dL (8.5-10.1); CREATININE, SERUM 0.43 mg/dL (0.70-1.30); MAGNESIUM 1.6 mg/dL (1.8-2.4); PHOSPHORUS, INORGANIC 3.1 mg/dL (2.5-4.9); POTASSIUM 4.1 mmol/L (3.5-5.1); PROTEIN, TOTAL 5.5 g/dL (6.4-8.2)
--- NOTE | 2024-04-11 06:50 | NUR ---
PATIENT INCONT OF URINE. PATIENTS BEDDING CHANGED. ROLF CARE COMPLETED. NEW ATTEND IN PLACE. PATIENTS DRESSING ON RLE CHANGED PER ORDER. PATIENT RATES PAIN AT A 9/10, PRN PAIN MEDICATION GIVEN PER ORDER. PATIENT REMAINS ON RA AND DENIES ANY SOB. PATIENT PROVIDED FRESH ICE WATER. PATIENT DENIES ANY FURTHER NEEDS. CALL LIGHT IN REACH. IV INFUSING PER ORDER.
[2024-04-11] MEDS ORDERED: MAGNESIUM SULFATE 2 GM/50 ML BAG IV ONE (08:15)
--- NOTE | 2024-04-11 08:52 | NUR ---
DR. CASTELLANOS IN TO SEE PATIENT AT THIS TIME AND PLAN OF CARE BEING DISCUSSED. PT EATING HIS BREAKFAST. PLAN TO SEE IF PATIENT CAN TRANSFER TO [facility] TODAY. WILL CONTINUE TO MONITOR.
--- NOTE | 2024-04-11 09:49 | NUR ---
PLAN TO TRANSFER TO [facility] FOR HIGHER LEVEL OF CARE NEED. AWAITING BED AT THIS TIME.
--- NOTE | 2024-04-11 10:35 | NUR ---
[facility] [place] CALLED AT 1000 TO ASK ABOUT WAITLIST STATUS FOR TRANSFER OF PATIENT AND NO TIME FRAME GIVEN. FACESHEET FAXED PER THEIR REQUEST. PATIENT RESTING AT THIS TIME IN BED. DRESSING CHANGE WAS DONE AROUND 0600 PER BASTING MACHINE OPERATOR, AND WILL BE DONE LATER TODAY. PT AWARE OF PLAN OF CARE AND DENIES FURTHER NEEDS.
--- NOTE | 2024-04-11 14:29 | NUR ---
UR CLINICAL/CONCURRENT REVIEW: [facility] INPT CRITERIA 04/07/24 FOR CELLULITIS. DOES NOT MEET GL DAY 2 04/10/24, [facility]PLE[facility] INPT 04/07/24 @ 0240 CLINICAL FAXED FOR AUTH REVIEW TRANSFER FOR VASCULAR INTERVENTION PENDING 04/13/24
--- NOTE | 2024-04-11 14:32 | NUR ---
DRESSING CHANGED ON RIGHT LEG. PT TOLERATED WELL. CENTRAL LINE DRESSING THEN CHANGED. PT HAS BEEN RESTING WELL THOUGHOUT THE DAY TODAY. WILL CONTINUE TO MONITOR.
--- NOTE | 2024-04-11 15:55 | NUR ---
PATIENT CALLS AND REQUESTS PAIN MEDICATION AFTER HAVING HIS BODY FEEL LIKE HE WAS HAVING FULL BODY TWITCHES. PRN TYLENOL AND TRAMADOL GIVEN FOR 8/10 PAIN IN HIS RIGHT LEG/STUMP. ATTENDS CHANGED WELL PATIENT HAD AN INCONTINENT EPISODE. WILL CONTINUE TO MONITOR.
--- NOTE | 2024-04-11 19:30 | NUR ---
RECEIVED REPORT FROM DAY SHIFT RN. PATIENT IS RESTING IN BED WITH EYES CLOSED, RR 14. NAD NOTED. CALL LIGHT IN REACH.
--- NOTE | 2024-04-11 20:59 | NUR ---
PATIENT DRIBBLEDE URINE. PATIENTS ATTEDN CAHNGED AND ROLF CARE COMPLETED. NEW ATTEDN IN PLACE. PATIENTS OM MEDS GIVEN PER ORDER. IV ABX INFUSING PER ORDER. PATIENTA RATES PAIN AT A 4/10 AND DENIES THE NEED FOR PAIN MEDICATION AT THIS TIME. PATIENT REMAINS ON RA AND DENIES ANY SOB. PATIENT ASSESMENT COMPLETED. PATIENTS DRESSING ON RLE IS C/D/I. PATIENT DENIES ANY FURTHER NEEDS. WARM BLANKET AND FRESH ICE WATER PROVIDED. CALL LIGHT IN REACH.
--- NOTE | 2024-04-11 22:26 | NUR ---
PATIENT INCONT OF URINE AND VOIDED IN URINAL. PATIENT ASSISTED TO CHANGED ATTEND AND ROLF CARE COMPLETED. PATIENTS URINAL EMPTIED. PATIENT PROVIDED SNACK. PATIENT DENIES ANY FURTHER NEEDS. CALL LIGHT IN. PATIENT DENIES ANY FURTHER NEEDS. CALL LIGHT IN REACH.
[2024-04-12] VITALS (19 sets, daily range): BP systolic 93–133; BP diastolic 55–87
--- NOTE | 2024-04-12 00:58 | NUR ---
PATIENTS ASSESMENT COMPLETED. PATIENTS URINAL EMPTIED. FRESH ICE WATER ADN SNCAK PROVIDED. PATIENT RATES PAIN AT AN 8/10 IN RLE AND BACK, PRN MEDICATION GIVEN PER ORDER. PATIENTS IV ABX COMPLETED. PATIENTS CENTRAL LINE IS NOW HEPLOCKED PER ORDER. PATIENT DENIES ANY FURTHER NEEDS. CALLL LIGHT IN REACH.
--- NOTE | 2024-04-12 01:50 | NUR ---
PATIENT IS RESTING IN BED WITH EYES CLOSED, RR 11. PATIENTS URINAL EMPTIED. PATIENTS IV ABX INFUSING PER ORDER. NAD NOTED. CALL LIGHT IN REACH.
--- NOTE | 2024-04-12 03:22 | NUR ---
PATIENT IS RESTING IN BED WITH EYES CLOSED, RR 11. NAD NOTED. CALL LIGHT IN REACH. IV ABX INFUSING PER ORDER. URINALS EMPTIED.
--- NOTE | 2024-04-12 04:27 | NUR ---
PATIENT IS RESTING IN BED WITH EYES CLOSED, RR 25. NAD NOTED. CALL LIGHT IN REACH. IV ABX INFUSING PER ORDER.
--- NOTE | 2024-04-12 05:28 | NUR ---
PATIENT INCONT OF STOOL AND URINE. PATIENTS BEDDING CHANGED, ATTEND CHANGED AND CHG [place] COMPLETED. PATIENTS DRESSING CHANGE ON RLE CHANGED. PATIENT REPOSITIONED IN BED. PATIENT DENIES ANY PAIN. PATIENT DENIES ANY FURTHER NEEDS AT THIS TIME. CALL LIGHT IN REACH. IV ABX INFUSING PER ORDER.
[2024-04-12 06:20] LABS: BASOPHILS 0.8 % (0-2); EOSINOPHILS 1.1 % (0-6); HEMATOCRIT 27.4 % (35.0-50.0); HEMOGLOBIN 9.2 g/dL (12.0-18.0); LYMPHOCYTES 20.1 % (24-44); MCH 32.3 (27-36); MCHC 33.6 g/dl (30-36); MCV 96.1 fl (81-99); MONOCYTES 11.1 % (0-12); NEUTROPHILS 66.9 % (39-80); PLATELET COUNT 212 K/uL (140-440); RBC 2.85 M/ul (4.3-5.7); RDW 19.1 (10.5-15.0)
--- NOTE | 2024-04-12 06:32 | NUR ---
LABS DRAN PER PROTOCOL FROM . IJ IS NOW SL PER ORDER. PATIENT DENIES ANY NEEDS. CALL LIGHT IN REACH.
[2024-04-12 06:36] LABS: ANION GAP 11.1 (7-21); BUN/CREATININE RATIO 12.82 (6.0-28.6); CALCIUM 8.3 mg/dL (8.5-10.1); CREATININE, SERUM 0.39 mg/dL (0.70-1.30); MAGNESIUM 1.6 mg/dL (1.8-2.4); PHOSPHORUS, INORGANIC 3.7 mg/dL (2.5-4.9); POTASSIUM 4.1 mmol/L (3.5-5.1)
[2024-04-12] MEDS ORDERED: MAGNESIUM SULFATE 2 GM/50 ML BAG IV ONE (08:00)
--- NOTE | 2024-04-12 09:51 | NUR ---
THIS RN CALLED [facility] THIS AM TO SEE WHERE HE IS ON THE TRANSFER LIST. PATIENT IS STILL FIRST ON THE LIST, BUT THEY STILL ARE NOT ABLE TO OFFER A BED FOR HIM YET AT THIS TIME. WILL CONTINUE TO MONITOR AND WAIT FOR A BED TO OPEN. THE NEED FOR HIM TO TRANSFER FOR VASCULAR SURGERY AND POTENTIAL AMPUTATION OF HIS RIGHT STUMP REMAINS PRESENT. PT CONTINUES ON ABX THERAPY. PT VOIDING TO URINAL IN BED BY SELF. PT IS FRUSTRATED OVERALL AND TEMPER IS SHORT. PATIENT STATES PAIN IN RIGHT STUMP AND BACK CONTINUES TO BE A 7/10. SCHEDULED MEDICATIONS GIVEN WITH PRNs AVAILABLE. PT REMAINS ON ROOM AIR. IVF NOW SALINE LOCKED. IV MAG AND IV CEFEPIME INFUSING. MEDIAL PORT NOT RETURING BLOOD AT THIS TIME. WILL HEPARIN LOCK AFTER MAG INFUSION AND REASSESS THIS.
--- NOTE | 2024-04-12 10:44 | NUR ---
PATIENT USES CALL LIGHT AND STATES HE NEEDS HELP WITH A BM HE WAS HAVING. PT HAD TRIED TO CLEAN SELF UP AND HAD STOOL IN HIS SHEETS. NEW CLEAN SHEETS PROVIDED AND NEW ATTENDS AND CHUX UNDER PATIENT. PATIENT APPRECIATIVE AND NO FURTHER NEEDS IDENTIFIED. WILL CONTINUE TO MONITOR. DR. CASTELLANOS IN TO SEE PATIENT EARLIER THIS AM AND NO CHANGES TO CURRENT ORDERS - STILL PENDING TRANSFER TO [facility] FOR VASCULAR SURGERY/ORTHO.
--- NOTE | 2024-04-12 11:30 | NUR ---
CONTINUE TO WAIT FOR BED AVAILABILITY AT [facility] FOR TRANSFER DUE TO NEED FOR VASCULAR SURGEON.
--- NOTE | 2024-04-12 12:51 | NUR ---
NOON ASSESSMENT COMPLETE. PT RESTING IN BED AND NOW EATING LUNCH. PRN PAIN MEDS GIVEN FOR 9/10 PAIN. OFFERED TO PATIENT TO GET UP TO CHAIR FOR A CHANGE OF POSITION AND HE IS INTERESTED IN THIS AND WILL LET THIS RN KNOW WHEN HE WOULD LIKE TO DO THIS. PT CONTINUES TO HAVE PRODUCTIVE SPUTUM INTO EMESIS BAG. PT VOIDING TO URINAL . WILL CONTINUE OT MONITOR.
--- NOTE | 2024-04-12 14:14 | NUR ---
PT SLEEPING AT THIS TIME. LAST BP 93/64 AMD 93% ON ROOM AIR. CONTINUE TO MONITOR.
--- NOTE | 2024-04-12 15:27 | NUR ---
BLOOD CULTURES DRAWN FROM BROWN LUMEN OF CENTRAL LINE AFTER DISCARDING 9 ML. LAB REQUESTED TO DRAW 2ND SET PERIPHERALLY. PT TOLERATING WELL. PT HAS BEEN RESTING/SLEEPING THIS AFTERNOON THUS FAR.
--- NOTE | 2024-04-12 18:10 | NUR ---
DRESSING CHANGE DONE ON PATIENT'S RIGHT LEG. WOUND HAS PURULENT EXUDATE COMING FROM IT BUT DOES NOT HAVE ANY ODOR AT THIS TIME. MUPIROCIN REAPPLIED AFTER CLEANING WITH WOUND ENVIRONMENTAL PLANNING ENGINEER, FOLLOWED BY ADAPTIC, THEN A NON ADHERENT, THEN GAUZE. PT DENIES FURTHER NEEDS AT THIS TIME.
--- NOTE | 2024-04-12 19:40 | NUR ---
HANDOFF REPORT RECEIVED FROM DAY SHIFT RN. PATIENT LAYING IN BED WITH EYES CLOSED, RESPIRATIONS EVEN AND UNLABORED. PATIENT APPEARS TO BE COMFORTABLE. NO NEEDS AT THIS TIME. CALL LIGHT WITHIN REACH.
--- NOTE | 2024-04-12 21:15 | NUR ---
PATIENT BRIEF CHANGED AND NEW BLANKET PROVIDED. PATIENT REQUEST SNACK, CRACKERS AND PUDDING PROVIDED. PATIENT STATES 8/10 PAIN, PRN TYLENOL GIVEN PER EMAR. PATIENT CENTRAL LINE WNL. PATIENT RIGHT STUMP DRESSING C/D/I. PATIENT REMAINS ON ROOM AIR WITH O2 SATURATION AT 93%. NO FURTHER NEEDS AT THIS TIME. CALL LIGHT WITHIN REACH.
--- NOTE | 2024-04-12 23:04 | NUR ---
PATIENT AWAKE IN BED WATCHING TV, HAS NO NEEDS AT THIS TIME. CALL LIGHT WITHIN REACH.
[2024-04-13] VITALS (14 sets, daily range): BP systolic 82–111; BP diastolic 52–88
--- NOTE | 2024-04-13 00:42 | NUR ---
ASSESSMENT COMPLETE. NO NEW CHANGES AT THIS TIME. PATIENT REMAINS ON ROOM AIR WITH O2 SATURATION AT 93%. PATIENT STATES HIS LINEN NEEDS CHANGED. PATIENT HAD EPISODE OF INCONTINENCE. NEW LINEN, BRIEF, AND CHUX PROVIDED. NO FURTHER NEEDS AT THIS TIME. CALL LIGHT WITHIN REACH.
--- NOTE | 2024-04-13 02:30 | NUR ---
patients IV ABX infusing per order. patient has no needs at this time. call light within reach.
--- NOTE | 2024-04-13 04:45 | NUR ---
PATIENT USED CALL LIGHT REQUESTING PAIN MEDICATION FOR 8/10 PAIN. PRN PAIN MEDICATION GIVEN PER EMAR. PATIENT BRIEF NOTED TO BE AT EDGE OF BED. PATIENT STATES HE TOOK IT OFF AND NEEDS A NEW ONE. PATIENT BEDDING NOTED TO BE WET. NEW LINEN, CHUX, AND BRIEF PROVIDED. PATIENT UPDATED ON CARES FOR THE MORNING. FRESH ICE WATER PROVIDED. NO FURTHER NEEDS AT THIS TIME. CALL LIGHT WITHIN REACH.
--- NOTE | 2024-04-13 05:33 | NUR ---
labs drawn from patient central line and sent to lab. no further needs at this time. call light within reach.
[2024-04-13 05:51] LABS: ANION GAP 10.9 (7-21); CALCIUM 8.5 mg/dL (8.5-10.1); POTASSIUM 3.9 mmol/L (3.5-5.1)
[2024-04-13 05:59] LABS: BASOPHILS 0.9 % (0-2); EOSINOPHILS 0.8 % (0-6); HEMATOCRIT 27.9 % (35.0-50.0); HEMOGLOBIN 9.3 g/dL (12.0-18.0); LYMPHOCYTES 15.9 % (24-44); MCH 31.6 (27-36); MCHC 33.1 g/dl (30-36); MCV 95.4 fl (81-99); MONOCYTES 12.1 % (0-12); NEUTROPHILS 70.3 % (39-80); PLATELET COUNT 273 K/uL (140-440); RBC 2.93 M/ul (4.3-5.7); RDW 19.4 (10.5-15.0)
[2024-04-13 06:00] LABS: BUN/CREATININE RATIO 12.24 (6.0-28.6); CREATININE, SERUM 0.49 mg/dL (0.70-1.30)
--- NOTE | 2024-04-13 06:10 | NUR ---
patient RLE dressing changed per order. patient has no further needs at this time. call light within reach.
--- NOTE | 2024-04-13 06:41 | NUR ---
patient states pain 9/10 and request Tylenol. PRN Tylenol given per emar. patient provided with crackers and peanut butter per request. no further needs at this time. call light within reach.
--- NOTE | 2024-04-13 07:45 | NUR ---
REPORT RECIVED FROM STOVE REFINISHER RN. PATIENT LAYING IN BED. PATIENT ON THE HEART MONITOR. CALL LIGHT IN REACH AND PATIENT CALLS APPROPRIATELY. PATIENT IS AWAITING TRANSFER TO [facility] FOR VASCULAR CONSULT. PATIENT DNEEIS ANY NEEDS AT THIS TIME.
--- NOTE | 2024-04-13 08:30 | NUR ---
PATIENT EYES CLOSED AND TV ON. PATIENT ON MONTIOR. WILL BE IN WITH AM BREAKFAST AND TO DO PATIENT ASSESSMENT.
[2024-04-13] MEDS ORDERED: MAGNESIUM SULFATE 2 GM/50 ML BAG IV SCH (09:00)
--- NOTE | 2024-04-13 09:00 | NUR ---
ERIKA FREITAS WILL BE RESUMING CARE AT THIS TIME. STAFF IN AND PATIENT HAD A BM BUT STATED "IM GOING TO FINISH MY BREAKFAST FIRST".
--- NOTE | 2024-04-13 11:30 | NUR ---
THIS RN BACK AND RESUMING CARE OF PATIENT. PATIENT HAD BREAKFAST. PATIENT HAD LARGE HARD STOOL. OTHER RN ORDERED BOWEL REGIMEN PER PROTOCOL FOR CONSTIPATION. PATIENT DRESSING WAS CHANGED BY ERIKA. CALL LIGHT IN REACH. PATIENT RESTING NOW AT THIS TIME.
--- NOTE | 2024-04-13 12:00 | NUR ---
CCS IN VISITING WITH THE PATIENT ABOUT PLAN OF CARE. 1:1 STAFF IN THE ROOM
--- NOTE | 2024-04-13 13:00 | NUR ---
STAFF WOKE PATIENT AND NOW HE IS SITTING UP EATING LUNCH. PATIENTS BLOOD PRESSURES HAVE REMAINED IN THE 80'S TODAY WITH A MAP >65. WILL MONITOR VITALS. CHRISTINA WAS CALLED AND PER STAFF HE SHOULD BE TRANSFERED TO FACILITY TODAY. AWAITING BED SPACE AT THIS TIME.
--- NOTE | 2024-04-13 13:56 | NUR ---
PT NOT AVAILABLE FOR VISIT. PROVIDED PRAYER.
--- NOTE | 2024-04-13 14:55 | NUR ---
UR CLINICAL/CONCURRENT REVIEW: [facility]-ME[facility] INPT CRITERIA 04/07/24 FOR CELLULITIS. DOES NOT MEET GL DAY 2 04/10/24, [facility] INPT 04/07/24 @ 0240 AUTH PENDING, WILL SEND FURTHER CLINICALS FOR REVIEW TRANSFER FOR VASCULAR INTERVENTION PENDING 04/16/24
--- NOTE | 2024-04-13 15:00 | NUR ---
PATIENT IN RESTING IN BED. ZENA STEPHENS WILL BE IN TO DO MEDICATIONS. NO OTHER NEEDS AT THIS ITOH. CALL LIGHT IN REACH.
--- NOTE | 2024-04-13 17:17 | NUR ---
RN IN TO TAKE PATIENT HIS DINNER AND UPDATE PATIENT ON PLAN OF CARE. MD BOSS AT THE BEDSIDE WELL. PROVIDERS CHANGED AT [facility] AND PER NEW PROVIDER HE WILL NOT DO ANY INTERVENTIONS ON PATIENT SO NO NEED FOR TRANSFER. MD BOSS SPOKE WITH GENERAL SURGEON KELLY AND MD WILL SEE PATIENT FOR POSSIBLE AMPUTATION OF RIGHT LEG TO ABOVE KNEE AREA. PATIENT STATES "OWH THAT BE AWESOME, ID LOVE TO STAY HERE".
--- NOTE | 2024-04-13 19:50 | NUR ---
handoff report received from day shift RN. patient laying awake in bed watching TV. no needs at this time. call light within reach.
[2024-04-13] MEDS ORDERED: POLYETHYLENE GLYCOL 3350 1 PACKET PO SCH (21:00)
[2024-04-13] MEDS ORDERED: SENNOSIDES/DOCUSATE 1 EA TAB PO SCH (21:00)
--- NOTE | 2024-04-13 21:10 | NUR ---
PATIENT STATES PAIN 7/10, REQUEST PAIN MEDICATION. PRN TYLENOL GIVEN PER EMAR. PATIENT BRIEF CHANGED, AND NEW CHUX PLACED. PATIENT PROVIDED WITH FRESH ICE WATER. NO FURTHER NEEDS AT THIS TIME. CALL MILI TOMPKINS.
--- NOTE | 2024-04-13 22:15 | NUR ---
PATIENT USED CALL LIGHT REQUESTING A SNACK. PATIENT PROVIDED WITH CRACKERS AND PEANUT BUTTER. NO FURTHER NEEDS AT THIS TIME. CALL LIGHT WITHIN REACH.
--- NOTE | 2024-04-13 23:00 | NUR ---
PATIENT LAYING AWAKE IN BED WATCHING TV. PATIENT PROVIDED WITH FRESH ICE WATER. NO FURTHER NEEDS AT THIS TIME. CALL LIGHT WITHIN REACH.
[2024-04-14] VITALS (9 sets, daily range): BP systolic 83–108; BP diastolic 58–71
--- NOTE | 2024-04-14 01:30 | NUR ---
patient awake watching TV, has no needs at this time. call light within reach.
--- NOTE | 2024-04-14 03:10 | NUR ---
patient resting in bed with eyes closed, respirations even and unlabored. no needs at this time. call light within reach.
--- NOTE | 2024-04-14 05:20 | NUR ---
PATIENT REFUSES TO KEEP HEART MONITOR LEADS ON. PATIENT PULLS OFF TWICE AFTER REPLACEMENT ATTEMPT. MONITOR PLACED ON STANDBY AT THIS TIME. CALL LIGHT WTIHIN REACH.
--- NOTE | 2024-04-14 06:07 | NUR ---
patient morning labs drawn off central line and sent to lab. no further needs at this time. call light within reach.
[2024-04-14 06:11] LABS: BASOPHILS 1.5 % (0-2); EOSINOPHILS 0.9 % (0-6); HEMATOCRIT 27.5 % (35.0-50.0); HEMOGLOBIN 9.1 g/dL (12.0-18.0); MCH 31.8 (27-36); MCV 96.2 fl (81-99); MONOCYTES 11.9 % (0-12); NEUTROPHILS 63.7 % (39-80); PLATELET COUNT 282 K/uL (140-440); RBC 2.86 M/ul (4.3-5.7); RDW 19.1 (10.5-15.0)
[2024-04-14 06:29] LABS: BUN/CREATININE RATIO 12.5 (6.0-28.6); CALCIUM 8.6 mg/dL (8.5-10.1); CREATININE, SERUM 0.48 mg/dL (0.70-1.30); MAGNESIUM 1.8 mg/dL (1.8-2.4); PHOSPHORUS, INORGANIC 4.2 mg/dL (2.5-4.9)
--- NOTE | 2024-04-14 07:30 | NUR ---
REPORT RECIVED FROM PRINTING BINDERY ASSISTANT RN. PATIENT RESTING IN BED. PATIENT REFUSED AM CARES THIS AM WITH PRINTING BINDERY ASSISTANT RN.
--- NOTE | 2024-04-14 07:45 | NUR ---
PATIENT CHANGED WITH VP STRATEGIC PARTNERSHIPS RN AND THIS RN. SKIN CHECK DONE. NEW DRESSING PLACED ON PATIENTS COCCYX. PATIENT. ALLOWED STAFF TO CHANGE WET LINENS AND ATTENDS. PATIENT HEART MONITOR PLACED BACK ON AT THIS TIME.
--- NOTE | 2024-04-14 08:17 | NUR ---
PATIENT UP AND EATING BREAKFAST. PATIENT TOELRATING WELL. CALL LIGHT IN REACH AND PATIENT CALLS APPROPRIATELY.
--- NOTE | 2024-04-14 09:40 | NUR ---
PATIENT GONE FOR MRI. LINEN CHANGED.
--- NOTE | 2024-04-14 10:38 | NUR ---
BACK FROM MRI WITH PT. TRANSFERRED TO BED. PLACED IN POSITION OF COMFORT
--- NOTE | 2024-04-14 10:45 | NUR ---
PATIENT BACK FORM MRI AND IN BED. PATIENT REVIEWED LUNCH AND DINNER MENU FOR THE DAY AND CONFIRMED HIS MEALS. PATIENT REQUEST TO TAKE A NAP AT THIS TIME AND STATES "I DONT KNOW WHAT IT IS ABOUT MRI'S BUT I AM SO TIERD EVERY TIME AFTER THEM". PATIENT PROVIDED A WARM BLANKET. CALL LIGHT IN REACH.
--- NOTE | 2024-04-14 11:02 | NUR ---
VISITED DURING SPIRITUAL CARE ROUNDS. PT APPEARED TO BE SLEEPING. DID NOT DISTURB. PROVIDED PRAYER.
--- NOTE | 2024-04-14 12:14 | NUR ---
PATIENT SITTING UP IN BED EATING LUNCH AT THIS TIME. CALL LIGHT IN REACH. PATIENT DENIES ANY OTHER NEEDS AT THIS TIME.
--- NOTE | 2024-04-14 14:30 | NUR ---
PATIENT CHANGED AND REPOSITIONED IN BED. PATIENT TOLERATED WELL. CALL LIGHT IN REACH.
--- NOTE | 2024-04-14 15:12 | NUR ---
Patient here x 8 days. Was going to be transferred to [facility] with a vascular surgeon, but that is no longer the plan. Patient may undergo a R AKA here with Dr. Busby. 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 Patient's diet is regular, easy to chew. He is essentially homeless. He is eating 75-100% of meals and will ask for snacks. No nutrition intervention needed at this time. Patient is at low nutrition risk. RD remains available if patient's condition changes or if needed for other nutrition assistance.
--- NOTE | 2024-04-14 16:40 | NUR ---
PATIENT EATING DINNER. PATIENT BEDDING WAS CHANGED AND PATIENT PROVIDED WITH FRESH WATER.
--- NOTE | 2024-04-14 16:45 | NUR ---
Spoke with Anish. He is willing to go to a SNF. I discussed with him placement maybe difficult due to his alcohol, drug use, and homelessness. He does believe he may be able to stay with his daughter after a SNF placement. This is not clear as last discharge daughter declined for him to stay with her. I will fax his chart to all SNFs in a 50 mile radius as he is willing to go to any that will accept him.
[2024-04-14] MEDS ORDERED: metroNIDAZOLE 250 MG TAB PO SCH (17:00)
--- NOTE | 2024-04-14 17:28 | NUR ---
Face sheet, H&P, consult with Dr Conti, progress notes x 3 days, labs, meds, imaging faxed to Jaylon Brian, Micky Keller at the [facility], [facility], [facility]. I will fu on Wednesday to check if anyone will accept this pt.
--- NOTE | 2024-04-14 17:45 | NUR ---
PATIENT REFEUSED ECHO STUDY. NOTIFIED. PATIENT NOW RESTING IN BED WATCHING TV.
--- NOTE | 2024-04-14 18:53 | NUR ---
MD MENDOZA IN TO SEE PATIENT AND REVIEW PLAN OF CARE. PATIENT AGREEABLE AND WILL BE NPO AT 0000. PATIENT URINAL EMPTIED. VITALS DONE. CALL LIGHT IN REACH.
--- NOTE | 2024-04-14 20:12 | NUR ---
PATIENT RESTING IN BED, ALERT AND ORIENTED HE REPORTS PAIN IS OK AT THIS TIME, NO NEED FOR COVERAGE, HE WOULD LIKE PAIN COVERAGE WITH DRESSING CHANGE LATER TONIGHT. HE HAS NO OTHER REQUESTS OR CONCERNS, HE IS AWARE OF HIS PLAN OF CARE FOR TONIGHT AND TOMORROW FOR SURGERY.
--- NOTE | 2024-04-14 21:32 | NUR ---
PATIENT ALERT AND ORIENTED, DECLINES NEED FOR DEPENDS TO BE CHANGED, USED URINAL HWILE THIS RN AT BEDSIDE. REPORTS PAIN IS TOLERABLE AND NO NAUSEA, ASKED FOR PEANUT BUTTER AND ISAÍAS CRACKERS WITH MILK, THIS IS PROVIDED. PATIENT VERBALIZED NO OTHER NEEDS AT THIS TIME.
--- NOTE | 2024-04-14 23:57 | NUR ---
PATIENT ADMINISTERED 0.5MG IV DILAUDID TO MANAGE PAIN FOR DRESSING CHANGE. THEN COMPLETED DRESSING CHANGE, PATIENT TOLERATED WELL. SEE WOUND ASSESSMENT CHARTING FOR DETAILS. PATIENT HAS HAD SNACKS AND LUNCH BOX OFFERED, HE HAS CONSUMED SNACKS MOST OF SHIFT KNOWING HE IS NPO AT MIDNIGHT.
[2024-04-15] VITALS (13 sets, daily range): BP systolic 87–141; BP diastolic 57–73
[2024-04-15] MEDS ORDERED: SODIUM CHLORIDE 0.9% 1,000 ML IV SCH (02:30)
--- NOTE | 2024-04-15 02:32 | NUR ---
PATIENT RESTING IN BED, EYES CLOSED RR 16/MIN, NO DISTRESS NOTED, THIS RN ROUNDING AND HANGING ABX FOR ADMINISTRATION.
--- NOTE | 2024-04-15 05:01 | NUR ---
PATIENT RESTING IN BED, ALERT TO RN AT BEDSIDE FOR BLOOD DRAW AND ASSESSMENT THIS AM. PATIENT REPORTS HIS DEPENDS ARE DRY. URINE IN URINAL ON BEDSIDE TABLE. DRESSING AT R BKA CDI. NO NEW CONCERNS ON ASSESSMENT.
[2024-04-15 05:13] LABS: BASOPHILS 0.2 % (0-2); EOSINOPHILS 0.9 % (0-6); HEMOGLOBIN 8.6 g/dL (12.0-18.0); LYMPHOCYTES 17.1 % (24-44); MCH 31.7 (27-36); MCHC 33.1 g/dl (30-36); MCV 95.8 fl (81-99); MONOCYTES 10.6 % (0-12); NEUTROPHILS 71.2 % (39-80); PLATELET COUNT 290 K/uL (140-440); RBC 2.72 M/ul (4.3-5.7); RDW 18.9 (10.5-15.0)
[2024-04-15 05:52] LABS: ANION GAP 13.5 (7-21); BUN/CREATININE RATIO 18.36 (6.0-28.6); CALCIUM 8.3 mg/dL (8.5-10.1); CREATININE, SERUM 0.49 mg/dL (0.70-1.30); MAGNESIUM 1.6 mg/dL (1.8-2.4); POTASSIUM 4.5 mmol/L (3.5-5.1)
[2024-04-15] MEDS ORDERED: MAGNESIUM SULFATE 2 GM/50 ML BAG IV SCH (07:00)
--- NOTE | 2024-04-15 07:30 | NUR ---
REPORT RECIVED FROM FISHERIES BIOLOGIST RN. PATIENT SLEPT WELL THROUGH THE NIGHT PER REPORT. PATIENT NPO SINCE MIDNIGHT. CALL LIGHT IN MARIA T AND PATIENT USES APPROPRIATELY.
--- NOTE | 2024-04-15 09:22 | NUR ---
THIS RN AND JOSE CRUZ RN IN TO DO AM CARES. PATIENT CHLORHEXIDINE WIPE DOWN COMPLETED, LINEN CHANGED, PATIENT CLEANED, PATIENT WAS GIVEN IV PAIN MEDICATION FOR INCREASED PAIN THIS AM. PATIENT IN A VERY PLEASANT MOOD A TTHIS ITME AND JOKING WITH STAFF. PATIENT IS READY FOR HIS PROCEDURE. NO QUESTIONS AT THIS TIME. PATIENT REFUSED ORAL CARE. PATIENT IS WATCHING TV. CALL LIGHT IN REACH.
[2024-04-15] MEDS ORDERED: KETOROLAC TROMETHAMINE 30 MG/ML VIAL ONE (13:14)
[2024-04-15] MEDS ORDERED: FAMOTIDINE 20 MG/ 2 ML VIAL ONE (13:14)
[2024-04-15] MEDS ORDERED: MIDAZOLAM HCL 2 MG/2 ML VIAL ONE (13:14)
[2024-04-15] MEDS ORDERED: propofoL 200 MG/20 ML VIAL ONE (13:14)
[2024-04-15] MEDS ORDERED: LACTATED RINGER'S 1,000 ML IV ONE (13:14)
[2024-04-15] MEDS ORDERED: DEXAMETHASONE SOD PHOS 4 MG/ML VIAL ONE (13:14)
[2024-04-15] MEDS ORDERED: fentaNYL citrate 100 MCG/2 ML VIAL ONE (13:14)
[2024-04-15] MEDS ORDERED: ondansetron HCL 4 MG/2 ML VIAL ONE (13:14)
[2024-04-15] MEDS ORDERED: METOCLOPRAMIDE HCL 10 MG/2 ML SDV ONE (13:14)
[2024-04-15] MEDS ORDERED: KETAMINE in NS 50 MG/5 ML SYR ONE (13:14)
--- NOTE | 2024-04-15 13:40 | NUR ---
PATIENT LEFT WITH OR STAFF. PATIENT CELL PHONE PLUGGED IN PER PATIENT REQUEST AT THE BEDSIDE.
[2024-04-15] MEDS ORDERED: DIGOXIN 500 MCG/2 ML AMP ONE (13:48)
[2024-04-15] MEDS ORDERED: HYDROCORTISONE SOD SUCCINATE 100 MG/2 ML VIAL ONE (13:50)
[2024-04-15] MEDS ORDERED: BUPIVACAINE HCL 0.5% 30 ML VIAL ONE (13:58)
[2024-04-15] MEDS ORDERED: PROCHLORPERAZINE EDISYLATE 10 MG/2 ML VIAL IV PRN (15:00)
[2024-04-15] MEDS ORDERED: fentaNYL citrate 50 MCG/ML SDV IV PRN (15:00)
[2024-04-15] MEDS ORDERED: NALOXONE HCL 0.4 MG SYR IV PRN (15:00)
[2024-04-15] MEDS ORDERED: METOCLOPRAMIDE HCL 10 MG/2 ML SDV IV PRN (15:00)
[2024-04-15] MEDS ORDERED: ondansetron HCL 4 MG/2 ML VIAL IV PRN (15:00)
[2024-04-15] MEDS ORDERED: MORPHINE SULFATE 10 MG/ML VIAL IV PRN (15:00)
[2024-04-15] MEDS ORDERED: IBLOOD GLUCOSE TEST STRIP 1 EA TEST VI PRN (15:00)
[2024-04-15] MEDS ORDERED: droPERidol 5 MG/2 ML VIAL IV PRN (15:00)
[2024-04-15] MEDS ORDERED: ePHEDrine sulfate 50 MG/ML AMP ONE (15:48)
[2024-04-15] MEDS ORDERED: OXYCODONE HCL 5 MG TAB PO PRN (17:15)
--- NOTE | 2024-04-15 17:15 | NUR ---
PATIENT BACK FROM SURGERY AND RECOVERED AT THSI TIME. PATIENT AWAKE, BUT CONFUSED AT TIMES. PATIENT SAYING ODD THINGS LIKE "I WANT THAT FIORELLA ICRECREAM OVER THERE ITS GOOD STUFF". PATIENT DENIES PAIN/NAUSEA AT THIS TIME. PATIENT ON 2L NC AT THIS TIME. PATIENT DRESSING IS CLEAN DRY AND INTACT. PATIENT HAS A BLOCK IN PLACE PER ANESTHESIA.
--- NOTE | 2024-04-15 17:24 | NUR ---
04/15/24 1724 Cecile Castaneda 1646-PT ARRIVES TO CCU ROOM 130 ON 6L VIA MASK. PT IS NONAROUSABLE WITH OPA IN PLACE. RESP EVEN AND UNLABORED. BED PLUGGED IN AND SIDE RAILS UP. 1648-PT RESPONSES TO VERBAL STIMULI AND OPA REMOVED. RESP EVEN AND UNLABORED. 1650-O2 TITRATED OFF. O2 SATS IN THE MID 90'S ON RA. PT DENIES PAIN OR NAUSEA. 1653-PT O2 SATS DECREASES TO 88%, 2L PER NC STARTED. O2 SATS INCREASE TO 90-92% 1655-O2 SATS DECREASE TO 87-88% ON 2L VIA NC. PT ENCOURAGED TO TAKE DEEP BREATHS. O2 SATS INCREASE TO 90-91%. 1658-O2 SATS ARE 88-91% ON 2L VIA NC. PT ENCOURAGED TO COUGH AND TAKE DEEP BREATHS. 1703-RESP EVEN AND UNLABORED. O2 SATS AROUND 90-91% ON 2L VIA NC. ENCOURAGED PT TO CONTINUE TO TAKE DEEP BREATHS. PT DENIES PAIN AND NAUSEA. 170-REPORT GIVEN TO CCU RN. NO OTHER NEEDS AT THIS TIME.
--- NOTE | 2024-04-15 17:44 | NUR ---
PATIENT C/O PAIN 02/02. PRN ADMINSTERED.
--- NOTE | 2024-04-15 18:30 | NUR ---
PATIENT GIVEN IV PAIN MEDICATIONS FOR PAIN. PATIENT REMAINS ON 2-4L NC. RT NOTIFIED AND IN TO ASSESS PATIENT. PATIENT REFUSED NEB AT THIS TIME AND HAS TAKEN THE OXYGEN OF AT TIMES. NO WHEEZES NOTED, BUT DIMINISHED IN THE BASES. PATIENT HAS NOT URINATED SINCE SURGERY. PATIENT STATES "I DONT NEED TO GO". PATIENT NOTIFIED TO CALL STAFF IF HE NEEDS ANY ASSISTANCE.
--- NOTE | 2024-04-15 20:01 | NUR ---
PATIENT ALERT AND TALKATIVE, HE VERBALIZED HE REMEMBERS THIS RN FROM LAST TRANSPORTATION AGENT. HE REPORTS THAT IS PAIN IS MUCH IMPROVED AT THIS TIME. FULL BED CHANGE PROVIDED FOR URINE INCONTINENCE. PATIENT COOPERATIVE WITH CARES.
--- NOTE | 2024-04-15 22:51 | NUR ---
PATIENT REQUIRED FULL BED CHANGE DUE TO INCONTINENCE OF URINE, HE HAD VOIDED 175ML IN URINAL WELL. PATIENT HAS GOOD BED MOBILITY TO ASSIST WITH TURNING, HIS DRESSING IS NOTED TO HAVE SMALL AMOUNT OF DRAINAGE NOTED AT THIS TIME.
--- NOTE | 2024-04-15 23:24 | NUR ---
EDUCATION PROVIDED TO PATIENT TO NOT RUB HIS SURGERY DRESSING WITH HIS HANDS OR ANUTHING ELSE. PATIENT VERBLAIZED UNDERSTANDING. THAT TONIGHT THE SURGERY SITE NEEDS TO HAVE TIME TO CLOT OFF TO PREVENT BLEEDING.
[2024-04-16] VITALS (10 sets, daily range): BP systolic 95–134; BP diastolic 51–69
--- NOTE | 2024-04-16 00:02 | NUR ---
PATIENT REPORTS PAIN 8/10 AT RIGHT STUMP SURGERY SITE. OXYCODONE 5MG PO ADMINISTERED AT THIS TIME. PATIENT HAS CONSUMED SANDWICH LUNCH BOX, NO NAUSEA TO REPORT. HE USED CALL LIGHT OT REQUEST ASSISTANCE WITH STRAIGHTENING HIS BLANKETS AND REPORT PAIN LEVEL. HE IS ALSO REMINDED TO LET HIS SURGERY STUMP REST MUCH POSSIBLE SO THE INCISION CAN CLOT OFF. IT IS NOTED THAT HE HAS SMALL AMOUNT OF BLOOD DRAINAGE NOTED ON ANTERIOR OR TOP OF STUMP DRESSING.
--- NOTE | 2024-04-16 04:21 | NUR ---
PATIENT CHANGED FOR INCONTINENCE OF URINE, ALSO PATIENT HAS NOT SLEPT OVER NIGHT, HE REPORTS PAIN IS TOLERABLE, HE SAID, "I HAVE A LOT ON MY MIND TONIGHT." HE ALSO SAID, "I USUALLY SLEEP AT DAY TIME, CAUSE I HAVE TO KEEP AN EYE OPEN FOR PEOPLE TRY TO STEAL MY STUFF." BLOOD DRAW NOW SO TO ALLOW PATIENT TO SLEEP IF POSSIBLE. ASSESSMENT COMPLETE. DRESSING HAS SMALL AMOUNT OF SANGUINEOUS DRAINAGE ON ANTERIOR/TOP SIDE OF SURGERY SITE DRESSING.
[2024-04-16 04:25] LABS: HEMOGLOBIN 7.9 g/dL (12.0-18.0)
[2024-04-16 04:27] LABS: BASOPHILS 1.3 % (0-2); HEMATOCRIT 24.2 % (35.0-50.0); LYMPHOCYTES 9.7 % (24-44); MCH 31.5 (27-36); MCHC 32.7 g/dl (30-36); MCV 96.2 fl (81-99); MONOCYTES 8.5 % (0-12); NEUTROPHILS 80.5 % (39-80); PLATELET COUNT 247 K/uL (140-440); RBC 2.51 M/ul (4.3-5.7)
[2024-04-16 04:34] LABS: ANION GAP 13.4 (7-21); BUN/CREATININE RATIO 17.54 (6.0-28.6); CALCIUM 8.1 mg/dL (8.5-10.1); CREATININE, SERUM 0.57 mg/dL (0.70-1.30); POTASSIUM 4.4 mmol/L (3.5-5.1)
--- NOTE | 2024-04-16 05:56 | NUR ---
PATIENT HAS BEEN AWAKE THE MAJORITY OF THE NIGHT. HE HAS HAS HAD PRN COVERAGE FOR PAIN TWICE OVER SHIFT, WITH TRAMADOL AND THEN WITH OXYCODONE. HE HAS REPORTED PAIN IS MANAGED, HE REPORTS HE IS USUALLY AWAKE AT NIGHT AND SLEEPS DURING THE DAY DUE TO HOMELESS LIFE STYLE. HE HAS SNACKED THROUGHOUT THE NIGHT, HE REPORTS NO NAUSEA. THERE IS SMALL AREA OF SANGUINEOUS DRAINAGE NOTED ON SURGICAL DRESSING SURFACE.
--- NOTE | 2024-04-16 07:40 | NUR ---
report from night time nanny, pt resting in bed, call light in reach.
--- NOTE | 2024-04-16 08:43 | NUR ---
in pt room for am meds, pt awakens but not really ready to participate with rnmacrina with surgical drsg noted to have shading of old drainage on top area with what appears as no new drainage. pt educated on his medication and states "I know". breakfast tray set up in reach. call light in reach. iv abx fusing on right IJ wnl via pump.
--- NOTE | 2024-04-16 09:31 | NUR ---
in room with pt and . plan to dc right ij today. declines miralax at this time. denies other needs. plan to transition to med surg.
--- NOTE | 2024-04-16 10:00 | NUR ---
rn removed r ij wnl - sutures removed and area cleaned with chloraprep - site wnl - pressure held and occlusive dressing placed. pt educated on keeping area clean and dry and calling if after pressure from nurse has any problems with site. working iv in left fa. called med surg charge and mixing and dispensing supervisor aware of plan of transfer later. pt aware and agress.
--- NOTE | 2024-04-16 11:05 | NUR ---
pt trsf via bed from icu to rm 113 med surg. all belongings with pt including cell phone. report to alvin evans, r ij site wnl.
--- NOTE | 2024-04-16 11:26 | NUR ---
BEDSIDE REPORT FROM CCU RN, GLADYS. PT IS AWAKE AND ALERT IN BED. NO APPEARANT DISTRESS. CCU RN ADVISED PT'S NORMAL BP IS 60S/40S. MD IS NOT WANTING A CALL FOR HYPOTENSION. REFILLED ICE/WATER. ALL BELONGINGS IN REACH AND NO OTHER NEEDS AT THIS TIME.
--- NOTE | 2024-04-16 12:18 | NUR ---
PT REPORTED BOUT OF NAUSEA WITH NO VOMITING. REQUESTED OXY FOR PAIN, DECLINED ANTIEMETICS. SET HIS LUNCH TRAY UP. NO NEEDS AT THIS TIME. ALL BELONGINGS IN REACH.
--- NOTE | 2024-04-16 14:53 | NUR ---
IV IN LEFT WRIST, DOES NOT FLUSH, LEAKS UPON ATTEMPT TO FLUSH, IV REMOVED, TIP INTACT, GAUZE AND COBAN DRESSING APPLIED TO SITE. PT TOLERATED WELL. DISCUSSED THE NEED TO START A NEW IV WITH PT, PT IS AGREEABLE. UPON SET-UP OF IV SUPPLIES AND ASSESSMENT OF VIENS PT REFUSES ANY PERIPHERAL IV. STATES, "ONLY IN HERE," POINTING TO RIGHT NECK. WHEN ASKED ABOUT PERIPHERAL IV OPPORTUNITIES PT REFUSES AND CLARIFIES, "ONLY IN THE NECK." DR. BOSS NOTIFIED. NO NEW ORDERS AT THIS TIME.
--- NOTE | 2024-04-16 16:55 | NUR ---
PT TRANSFERED TO MED/SURG FLOOR AT 1105. HIS IJ CENTRAL LINE WAS REMOVED IN CCU AND HIS PIV WAS NOT WORKING. HE DECLINED TO HAVE ANOTHER PIV PLACED, HE WOULD ONLY ACCEPT AN IJ. NOTIFIED HOSPITALIST, WHO OK'D TO LEAVE IV ACCESS OUT. CCU REPORTED THAT PT BP IS NORMALLY IN THE 60S/40S AND NOT TO CALL THE MD TO REPORT HYPOTENSION. PT HAS REPORTED MINIMAL PAIN, OXY GIVEN X1, TYLENOL GIVEN X1 WHICH WAS EFFECTIVE. PT IS EATING AND DRINKING WELL, GOOD URINE OUTPUT. HAS NOT HAD A BM X2 DAYS, BUT HAS BEEN REFUSING MIRALAX. HE DID ACCEPT SENNA THIS MORNING PER CCU. DRESSING HAS OLD DRAINAGE ON PILAR WRAP, BUT NO NEW DRAINAGE.
--- NOTE | 2024-04-16 18:43 | NUR ---
LIGHT IN PT ROOM WOULD NOT TURN OFF. FINALLY GOT IT TO TURN OFF, TAPED THE SWITCH TO KEEP IT OFF PER PT REQUEST.
--- NOTE | 2024-04-16 20:19 | EKG ---
[facility] [address] [place], [place] [address] Signed Normal sinus rhythm Normal ECG When compared with ECG of 13-FEB-2024 07:16, No significant change was found Confirmed by Isma Brenner MD ([id number]) on 04/16/2024 8:19:05 PM Electronically Signed By: ISMA BRENNER MD 04/16/24 2019 PATIENT NAME: MELA MICHELLE Electrocardiogram DATE OF : 56 PHYSICIAN: ISMA BRENNER MD REPORT #: [id number] REPORT IS CONFIDENTIAL AND NOT TO BE RELEASED WITHOUT AUTHORIZATION
[2024-04-16] MEDS ORDERED: DOXYCYCLINE HYCLATE 100 MG CAP PO SCH (21:00)
--- NOTE | 2024-04-16 21:12 | NUR ---
PT ALERT AND ORIENTED TO ALL. LOUD BELLIGERENT ANGRY TONE OF VOICE, ALL CARES EXPLAINED TO HIM SEVERAL TIMES, EFFORTS PRAISED. WAS INCONTINENT OF URINE, SKIN CARE DONE, ALLEVYN TO COCCYX ARE IN PLACE, WHOLE BED CHANGE DONE. NOT VERY RECEPTIVE OR HELPFUL WITH TURNING AND REPOSITIONING, REPOSITIONS SELF IN BED WELL. ABEL SLAUGHTER, DRESSING CDI, DECLINES TO HAVE IT ELEVATED WITH PILLOWS. DRESSING TO R OLD IJ SITE IN PLACE. CRACKERS PEANUT BUTTER AND FRESH WEATER GIVEN ON REQUEST. CONT TO ENCOURAGE COMPLIAND AND EXPLAIN ALL CARES. C/O FAIT PAIN RELIEF WAS MEDICATED EARLIER
--- NOTE | 2024-04-17 00:20 | NUR ---
PT CURRENTLY EATTING ORANGE JELLO, FRESH ICE WATER GIVEN. CLEANED UP THE ROOM, IN THAT THERE WERE EMPTY FOOD CONTAINERS ON THE FLOOR. PEANUT BUTTER GIVEN, OPENED FOR HIM IN THAT HE STATES HE HAS A HARD TIME OPENING IT. PRIOR TO THIS, PT WAS EXTREMELY UPSET HE HAD REQUESTED PAIN MEDICATION AND IT WAS "LATE". YELLING, THERAPEUTIC CONVERSATION FAILED. EVENTLY HE WAS ABLE TO NOT YELL AND LISTENED. TYLENOL GIVEN. PT WAS PLEASANT WHEN THIS RN LEFT THE ROOM.
--- NOTE | 2024-04-17 00:39 | NUR ---
MEDICATED PT WITH OXYCODONE. PT AWARE THAT HE CAN HAVE ANOTHER ONE IN 6 HOURS, AND TYLENOL EVERY 8 HOURS. ENCOURAGED PT TO DISCUSS WITH DR HIS PAIN NEEDS.
--- NOTE | 2024-04-17 01:42 | NUR ---
Resting, eyes closed, no s/sx distress, RAKA dressing CDI
[2024-04-17 05:50] LABS: BASOPHILS 0.8 % (0-2); EOSINOPHILS 0.8 % (0-6); HEMATOCRIT 27.8 % (35.0-50.0); HEMOGLOBIN 9.1 g/dL (12.0-18.0); LYMPHOCYTES 25.1 % (24-44); MCH 30.9 (27-36); MCHC 32.6 g/dl (30-36); MONOCYTES 9.6 % (0-12); NEUTROPHILS 63.7 % (39-80); PLATELET COUNT 258 K/uL (140-440); RBC 2.93 M/ul (4.3-5.7)
[2024-04-17 06:03] LABS: ANION GAP 12.7 (7-21); BUN/CREATININE RATIO 19.6 (6.0-28.6); CALCIUM 8.9 mg/dL (8.5-10.1); CREATININE, SERUM 0.51 mg/dL (0.70-1.30); MAGNESIUM 1.6 mg/dL (1.8-2.4); POTASSIUM 4.7 mmol/L (3.5-5.1)
[2024-04-17 06:13] VITALS: BP 97/73
[2024-04-17 06:15] VITALS: BP 97/73
--- NOTE | 2024-04-17 06:15 | NUR ---
PT WAS INCONTINENT OF LARGE AMOUNT OF URINE IN ATTENDS PLU SUSED URINAL. SKIN CARE AND FRESH ATTENDS. C/O 02/02 R STUMP C/O PAIN. MEDICATED WITH OXYCODONE 5MG PO. HELPED TURNING AND REPOSITIONING. CONTINUES TO HAVE AN ANGRY, IRRITABLE TONE OF VOICE AND MANNERISM
--- NOTE | 2024-04-17 07:30 | NUR ---
PT REPORT RECIEVED FROM TRANSMISSION SYSTEM OPERATOR RN. PT LAYING IN BED WITH EYES CLOSED PT CHEST RISE EQUAL BILAT PT HAS NO CONCERNS AT THIS TIME CALL LIGHT WTIHIN REACH.
--- NOTE | 2024-04-17 07:47 | NUR ---
PATIENT IN BED AT THIS TIME. PATIENT WAS ASKING FOR PAIN MEDICATIONS, PACKAGING MATERIALS INSPECTOR STATED THAT SHE NOTIFIED RN AND THAT SHE WOULD BE IN SOON. PATIENT THEN STATED TO PACKAGING MATERIALS INSPECTOR "YOU ARE COMPLETELY WORTHLESS THEN." PACKAGING MATERIALS INSPECTOR NOTIFIED RN OF PATIENTS BEHAVIOR. CALL LIGHT WITHIN REACH, NO FURTHER NEEDS AT THIS TIME.
--- NOTE | 2024-04-17 08:15 | NUR ---
Called and spoke with Yoly at [facility]. They do not have beds, she also states they are not likely to take him as he does not have a good dc plan to leave when his 20 days are up. I called and left alec for Micky in [place]. I attempted to call [facility] to see if they could start senior living Medicaid I was not able to reach the worker of the day. I also spoke with Chantal in eligibility to check if he would qualify for Medicaid med insurance. This would help with a longer stay in a SNF if I can find a SNF to accept him.
--- NOTE | 2024-04-17 08:34 | NUR ---
PT IN ROOM DEMANDING TYLENOL AND STATING THE "ELLIS BEEN ASKING FOR MY PAIN MEDICATION AND THAT ONE LADY DOESNT KNOW WHAT SHE IS DOING". THIS RN EXPLAINED THE FOOD BEVERAGE ATTENDANT IS NOT ABLE TO GET PAIN MEDICATIONS. PT BEGINS TO STAY "THIS HOSPITAL NEEDS NEW NURSES, BECAUSE THEY DONT KNOW WHAT THEY ARE DOING". THIS RN DISCUSSED WITH PATIENT THAT SPEAKING TO THE STAFF LIKE THAT DOES NOT HELP THE SITUATION. PT HELD UP ICE WATER AND SAYS "GIVE ME ICE WATER". THIS RN EXPLAINED THE UNDERSTANDING OF HIS FRUSTRATIONS BUT WE ARE HERE TO HELP.
--- NOTE | 2024-04-17 08:37 | NUR ---
SPOKE WITH PT ABOUT TREATING THE NURSING STAFF RESPECTFULLY. TALKED TO THE PT AND LET HIM KNOW THAT WE ARE HERE TO HELP HIM AND THAT WE DESERVE TO BE TREATED RESPECTFULLY. PT WAS RECEPTFUL CONTINUE TO REINFORCE WITH PT.
--- NOTE | 2024-04-17 09:16 | NUR ---
UR CLINICAL/CONCURRENT REVIEW: [facility]-MEETS INPT CRITERIA 04/07/24 FOR CELLULITIS. DOES NOT MEET GL DAY 3 04/16/24, VARIANCE COMPLETED. MEETS INPT CRITERIA FOR KNEE:AMPUTATION 04/15/24. VARIANCE FOR GL DAY 2 ON 04/16/24. [facility] INPT 04/07/24 @ 0240 AUTH PENDING, WILL SEND FURTHER CLINICALS FOR REVIEW SNF AT [facility] PENDING REFERRALS. 04/20/24
--- NOTE | 2024-04-17 09:30 | NUR ---
PT SITTING IN BED WATCHING TV URNAL EMPTIED AND WROTE ON I/O BOARD IN ROOM PT HAS NO OTHER CONCERNS AT THIS TIME. CALL LIGHT WITHIN REACH
--- NOTE | 2024-04-17 09:40 | NUR ---
Received a text from [facility], this pt is complicated and they cannot accept any more "heavy Pts' at this time. I spoke [facility] and they also felt this pt is not likely someone they will take. I returned to the pts room and Chantal from Eligibility is in the room. Per Anish he has Medicare and two Lifetime pensions from [employer] and one from a [employer] workers union. Pt monthly income is over $4000. He states he has funds to pay for an AFC or a Motel. He also has a warrant in [facility] and will need to return in Apr or May. He states he will take the bus. He does not have any debit or credit cards, but goes to the bank and gets stapleton. I called all the AFC in our area, including [place] and [place]. All are full and they do not have any openings. I discussed plan with Anish for a Motel and he can return to for dressing changes. He is in agreement. Ramiro Regalado, called the [facility]. They have availability and they accept stapleton with a $100 deposit. I will check with Dr. Conti and Dr. Brenner to see when pt is dischargeable.
[2024-04-17 09:44] VITALS: BP 100/62
--- NOTE | 2024-04-17 09:46 | NUR ---
PATIENT IN BED RESTING AT THIS TIME. VITALS AND I&O'S DONE AND CHARTED. CALL LIGHT IN REACH. NO FURTHER NEEDS AT THIS TIME.
[2024-04-17 10:30] VITALS: BP 100/62
--- NOTE | 2024-04-17 10:30 | NUR ---
PT SITTING IN BED PT ASKED ABOUT HIS PAIN RAITING PT SAID 4/10 PT HAS NO CONCERNS AT THIS TIME. PTS RESPECT FOR HEALTHCARE TEAM HAS INCREASED SINCE THIS MORNINGS CONVERSATION. CONTINUE TO REIENFORCE WITH PT. CALL LIGHT WITHIN REACH.
--- NOTE | 2024-04-17 11:20 | NUR ---
PT SITTING IN BED AND ASSESSMENT COMPLETED. PT HAS QUESTIONS ABOUT WHEN HE COULD RECIEVE OXY NEXT. THIS RN TOLD PT THAT HIS NEXT OXY DOSE IS DUE AT 1213 PRN AND WROTE THE PT A NOTE AND PLACED ON BEDSIDE TABLE. PT HAS NO OTHER CONCERNS AT THIS TIME. CALL LIGHT WITHIN REACH.
--- NOTE | 2024-04-17 11:30 | NUR ---
Spoke with Dr. Eda Conti. Updated, I am working with pt for possible dc to the [facility]. Discussed what his dressing needs will be. He states he will evaluate. Pt may not need a dressing at all. I will fu when he has completed his assessment.
[2024-04-17] MEDS ORDERED: NICOTINE1 EAC2 TD (12:48)
[2024-04-17] MEDS ORDERED: OXYCODONE HCL5 MG PO (12:48)
[2024-04-17] MEDS ORDERED: METRONIDAZOLE250 MG PO (12:48)
[2024-04-17] MEDS ORDERED: DOXYCYCLINE HY100 MG PO (12:48)
[2024-04-17] MEDS ORDERED: PREGABALIN50 MG PO (12:49)
[2024-04-17] MEDS ORDERED: STIMULANT LAXA1 EACH PO (12:49)
[2024-04-17] MEDS ORDERED: TRAMADOL HCL50 MG PO (12:49)
[2024-04-17] MEDS ORDERED: ACETAMINOPHEN500 MG PO (12:49)
--- NOTE | 2024-04-17 13:45 | NUR ---
CASE MANAGEMENT 1300: WHEEL CHAIR VAN CALLED. WHEELCHAIR VAN WILL BE HERE AT 1540 TO PICK PATIENT UP AT DISCHARGE. CHARGE NURSE AND PATIENT NOTIFIED.
[2024-04-17 14:33] VITALS: BP 112/72
[2024-04-17 16:41] LABS: HEPATITIS A ANTIBODY, IGM Negative (Negative); HEPATITIS B CORE ANTIBODY, IGM Negative (Negative); HEPATITIS B SURFACE ANTIGEN Negative (Negative); HEPATITIS C AB CIA INTERP Negative (Negative); HEPATITIS C ANTIBODY CIA INDEX 0.13 IV (())
--- NOTE | 2024-04-18 11:54 | CONS ---
[facility] [address], [place] [address] Signed DATE OF CONSULTATION: 04/13/2024 CONSULTING PHYSICIAN: Dr. Brenner. ISSUE: Nonhealing right below-knee stump with dense eschar. HISTORY OF PRESENT ILLNESS: This 63-year-old white man is generally homeless. He has undergone left above-knee amputation in [place], [place] and has had a right below-knee amputation following revascularization in [place], [place]. Nine years ago, he had right below-knee amputation with exposed bone on his foot. He has had vascular surgery (revascularization) of some type bilaterally. His current situation is that of left above knee amputation and right below-knee amputation, having been admitted to the hospital April [address] Schulz with sepsis and cellulitis of the right lower extremity stump. The stump of presentation had erythema and dense black eschar. He had been admitted to this hospital in January and treated for sepsis related to pyelonephritis. The patient's presentation labs included a lactic acid of 6.9, potassium of 3.2, magnesium 1.0, and glucose 49. Consultation was undertaken with Dr. Otis Kothari on April 08, five days ago where he was considered likely to have pressure injury to the right below-knee amputation site. The patient himself was interested in the above knee amputation, so as to facilitate his daily activities, which dominantly include wheelchair living, though he is generally speaking, homeless. He is considered to have severe aortoiliac disease. In the meantime, consultation was undertaken elsewhere with a vascular/orthopedic service for which 5 days of hospitalization had been undertaken, awaiting transfer. The patient was accepted in transfer, but there were no beds available from what I understand at [facility]. Vascular surgeon now has indicated he is not interested in seeing the patient as there was no revascularization to do and he declines accepting to transfer from what I am told by the data processing systems project planner. On that basis, I was consulted. The patient does have ongoing smoking with no intention of quitting. He has had a fair amount of methamphetamine use and alcohol use as well. He has had no evidence of alcohol withdrawal syndrome since being in the hospital. He was initially admitted by Dr. Schulz, care assumed by Dr. Raymond and ultimately care now by Dr. Brenner, his third hospitalist of evaluation. Electronically Signed By: VERNON MENDOZA MD 04/18/24 1154 PATIENT NAME: MELA MICHELLE CONSULTATION DATE OF : 56 REPORT #: [id number] PHYSICIAN: VERNON MENDOZA MD PCP: NO PRIMARY CARE PHYSICIAN REPORT IS CONFIDENTIAL AND NOT TO BE RELEASED WITHOUT AUTHORIZATION [facility] [address], [place] [address] Signed PHYSICAL EXAMINATION: GENERAL: A thin white man who does not look systemically toxic. He is chronically ill to be sure. He has numerous missing teeth. NECK: Trachea is midline. HEART: He has no tachypnea. His pulse is regular. ABDOMEN: Soft and nondistended. There are groin incisions on right and left side. The right affected side has a very minimally palpable pulse in the right groin. EXTREMITIES: Notably, however, the right leg is quite warm down to the knee. There is no cellulitic change above the knee. Upon evaluation of his wound on the right side, there were two dense eschars black in color about cm in size. The below-knee amputation range of motion is nil. He is unable to extend his lower portion of the below-knee stump. Examination of left leg shows a long healed midshaft above the amputation. LABORATORY STUDIES: Most recent lab studies show a white count of 6.0, hematocrit 27.9, platelets 273,000. Chem profile essentially normal. Creatinine is 0.49, magnesium 1.6. Liver enzymes, most recently normal. He had a fair number of white cells per high-power field, 21-40 on April 07. To my knowledge, another urinalysis was not been performed. He is screen positive for Staph aureus and nasal swab negative for MRSA. ASSESSMENT: The patient has undergone a lower extremity CT scan, a pelvic CT and chest x-ray all within the past [address] scan confirmed below-knee amputation changes on the right side with severe skin thinning and ulceration including over the patella as well as the anterior aspect of the tibial stump. There is no drainable fluid collection or soft tissue gas and no radiographic evidence of osteomyelitis. An MRI is planned by Dr. Brenner to assure there is no osteomyelitis of the distal femur. The patient's main mode of the existence is via wheelchair and he is homeless by his own desire generally. He does have a daughter in [place] who is willing to have him live with her, though he would have requirement for 2nd floor accommodations, which he is not able to do. Amputation of the right leg above the knee is certainly feasible and probably appropriate given his chronic long-standing necrotic wound that seemed not to heal for which he has associated sepsis. If the leg is fully infected at the area of transection, a guillotine type amputation would be indicated and if not, a primary closure. His prognosis, generally speaking is poor as he continues to smoke or take illicit drugs and drink alcohol and is in a homeless situation largely of his own desire. Electronically Signed By: VERNON MENDOZA MD 04/18/24 6014 PATIENT NAME: MELA MICHELLE CONSULTATION DATE OF : 56 REPORT #: [id number] PHYSICIAN: VERNON MENDOZA MD PCP: NO PRIMARY CARE PHYSICIAN REPORT IS CONFIDENTIAL AND NOT TO BE RELEASED WITHOUT AUTHORIZATION [facility] [address], [place] [address] Signed In any case amputation would likely improve his odds of avoidance of significant sepsis with progressive wound failure and osteomyelitis, though there is no current evidence of that. He will get an MRI of the lower extremity to assess that there is no osteomyelitis and if there is none, consideration will be made for a right above knee amputation in the next 48 hours or so. MD MANJULA Mora/MODL /[id number] cc: MD Dr. Segundo Olvera Dr., MD Copies: OTIS KOTHARI MD ~ Electronically Signed By: VERNON MENDOZA MD 04/18/24 1154 PATIENT NAME: MELA MICHELLE CONSULTATION DATE OF : 56 REPORT #: [id number] PHYSICIAN: VERNON MENDOZA MD PCP: NO PRIMARY CARE PHYSICIAN REPORT IS CONFIDENTIAL AND NOT TO BE RELEASED WITHOUT AUTHORIZATION
--- NOTE | 2024-04-18 11:54 | OR ---
[facility] [address], [place] [address] Signed DATE OF OPERATION: 04/15/2024 SURGEON: Vernon Mendoza MD PREOPERATIVE DIAGNOSIS: Chronic osteomyelitis of right below-knee amputation stump with recent severe cellulitis. POSTOPERATIVE DIAGNOSIS: Chronic osteomyelitis of right below-knee amputation stump with recent severe cellulitis. PROCEDURE: Right above-knee amputation. RELIGIOUS EDUCATION COORDINATOR: Logan Mendoza MD ANESTHESIA: Spinal anesthetic with propofol infusion, Vernon Muller CRNA. INDICATIONS FOR THE PROCEDURE: This 63-year-old white male was admitted on April 07, 2024, by Dr. Cole Schulz with sepsis and cellulitis of the right lower extremity stump from a previous below-knee amputation. The patient has previous left zzogm-kxa-odni amputation as well. Treatment initially includes intravenous antibiotics and other interventions. He was noted to have a black eschar of his stump in two separate areas. The patient generally speaking he is homeless. His presentation lactic acid was 6.9 with a potassium at 3.2. He underwent consultation by Dr. Gordon Sepulveda on April 08, where it is considered likely to have pressure injury to the right below-knee amputation site. The patient had desired strongly to have a right sdbqw-zfh-efoj amputation. Consultation was undertaken also with Vascular and Orthopedic service and after five days of hospitalization, anticipating transfer (which was initially accepted by the way). Reassessment by the assuming vascular surgeon said that there is no further revascularization that would be beneficial to him and that he should proceed with amputation locally in [place]. I was then consulted. The patient's leg at the time of my evaluation showed warm thigh and no evidence of active cellulitis, but a dense black eschar on the patella and elsewhere on the lower part of the below-knee amputation site. An MRI was performed, which confirmed osteomyelitis of the patella and tibial bones. Amputation is recommended and on that basis is offered. He understands the risk of bleeding, infection, recurrent cellulitis, and other unforeseen complications related to the Electronically Signed By: VERNON MENDOZA MD 04/18/24 1154 PATIENT NAME: MELA MICHELLE OPERATIVE REPORT DATE OF : 56 REPORT #: [id number] PHYSICIAN: VERNON MENDOZA MD PCP: NO PRIMARY CARE PHYSICIAN REPORT IS CONFIDENTIAL AND NOT TO BE RELEASED WITHOUT AUTHORIZATION [facility] [address], [place] [address] Signed amputation above the knee and wishes to proceed. FINDINGS: Soft tissue above the knee had normal warm skin. The eschar below the knee and so forth was as it was before. A typical fishmouth incision was made. Amputation performed in the distal 2/3 of the femur and closure of the wound in layers accomplished. A drain was not needed nor placed. PROCEDURE IN DETAIL: The patient was brought to the operating room . The patient was given a spinal anesthetic and intravenous sedation with propofol infusion. His antibiotic regimen came due during this timeframe and was given by OR personnel. The thigh was prepared from the proximal portion distal to the below-knee amputation stump and the stump side was covered with a stockinette dressing. Additional Coban was applied to secure it distally. An area in the distal 2/3 of the thigh was carefully marked for a fishmouth incision. An incision was taken through the dermis sharply and then using electrocautery. Soft tissue dissected free. Care was taken to maintain a perpendicular plane of the muscular and soft tissue layers in accordance with the flap itself. The common femoral artery was ultimately encountered and encircled and secured with two separate 0-silk ties. Transection showed it to be as brittle as and dense as bone with no significant blood flow in this area. Venous tributaries were secured similarly. Additional security of collateral blood vessels throughout the course of dissection was undertaken, again secured with 0-silk ties. Once the muscle anteriorly and laterally was fully freed from the femur, the periosteum was incised and gently drawn more proximally. A MovieLineli saw blade was inserted beneath the femur and the femur transected transversely. There was no untoward bleeding of the bone marrow, though some Bumex was used for hemostasis. The posterior flap was divided using the electrocautery as well, maintaining good muscle to the posterior flap also. Irrigation was undertaken and hemostasis assured with electrocautery as appropriate. The wound was then closed in layers with interrupted 2-0 Vicryl suture. Special care to cover the bone fully. Not mentioned previously was using a rasp to soften the edges of the transected bone, though he is not intended to have a prosthesis per se. Irrigation was maintained throughout the procedure with sterile saline and hemostasis was considered good. The skin was closed with running subcuticular 3-0 Vicryl. Steri-Strips were applied as was an Acticoat dressing. The stump was then wrapped with a Coban, and ultimately an Torrey wrap. The patient was ultimately allowed to emerge from sedation. Nerve blocks were applied to secure good postoperative pain management. The patient was Electronically Signed By: VERNON MENDOZA MD 04/18/24 1154 PATIENT NAME: MELA MICHELLE OPERATIVE REPORT DATE OF : 56 REPORT #: [id number] PHYSICIAN: VERNON MENDOZA MD PCP: NO PRIMARY CARE PHYSICIAN REPORT IS CONFIDENTIAL AND NOT TO BE RELEASED WITHOUT AUTHORIZATION [facility] [address] [place] [address] Signed ultimately taken to the recovery room in good condition, having suffered no known complications. Blood loss was 150 mL in aggregate. MD MANJULA Mora/BRANNON /[id number] cc: Dr. Sachi Schulz Copies: ~ Electronically Signed By: VERNON MENDOZA MD 04/18/24 1154 PATIENT NAME: MELA MICHELLE OPERATIVE REPORT DATE OF : 56 REPORT #: [id number] PHYSICIAN: VERNON MENDOZA MD PCP: NO PRIMARY CARE PHYSICIAN REPORT IS CONFIDENTIAL AND NOT TO BE RELEASED WITHOUT AUTHORIZATION
--- NOTE | 2024-04-20 11:43 | DS ---
[facility] [address], [place] [address] Signed ADMISSION DATE: 04/07/2024 DISCHARGE DATE: 04/17/2024 REASON FOR ADMISSION: Sepsis and right lower extremity below-knee stump cellulitis. HISTORY: This 63-year-old white man is generally homeless. He does have two pensions, on which he can live, but prefers to remain "free" and unencumbered and lives in a homeless with situation much of the time. He presented to the emergency room with right lower extremity pain from prior below-knee amputation. He has a left-sided nvwet-rrh-jzmt amputation. He was admitted to this hospital on January, having been admitted with sepsis secondary to pyelonephritis. After discharge, he developed erythema and pain in his right stump over the preceding three weeks, and came to the emergency room for further evaluation. His evaluation did show a lactic acid level of 6.9, potassium 3.2, and magnesium 1.0, and glucose of 49. He is admitted for further evaluation and care. PERTINENT PHYSICAL EXAMINATION: GENERAL: Showed a thin, cooperative, unkept, white man. CHEST: Clear. HEART: Regular. ABDOMEN: Soft and nontender. EXTREMITIES: Dressing was over the right lower extremity stump, which was clean and dry, but a dense eschar was noted over the skin of the area. IMAGING DATA: A CT scan showed bilateral moderate generalized gluteal subcutaneous edema extending into the proximal thighs without drainable fluid collection. There was severe aortoiliac atherosclerotic disease with an unchanged occlusion of bilateral external iliac, common femoral and proximal superficial femoral arteries. CT scan of the knee on the right side show below-knee amputation changes, thinning and ulceration versus bone exposure in the anterior aspect of the tibia stump, but no drainable fluid collections. There is no clear radiographic evidence for osteomyelitis. Chest x-ray showed a right internal jugular central line tip in the superior atriocaval junction. HOSPITAL COURSE: The patient met sepsis criteria, was treated as such, which was attributed to right stump cellulitis from previous below-knee amputation. The patient has had revascularization procedures in the past there by history. Consultation was undertaken Electronically Signed By: VERNON MENDOZA MD 04/20/24 1143 PATIENT NAME: MELA MICHELLE DISCHARGE SUMMARY DATE OF : 56 REPORT #: [id number] PHYSICIAN: VERNON MENDOZA MD PCP: NO PRIMARY CARE PHYSICIAN REPORT IS CONFIDENTIAL AND NOT TO BE RELEASED WITHOUT AUTHORIZATION [facility] [address], [place] [address] Otis Kothari on April 08, 2024, who concurred that a right above-knee amputation was likely most beneficial. He was recommended to transfer to a facility with vascular surgery capabilities and [facility] accepted the patient for nonemergent transfer, but was awaiting bed availability. He was maintained on antibiotics and cellulitic changes of the right lower extremity remained. His pain was improved; however. Bed availability for transfer was not forthcoming. On that basis, I was consulted regarding the possibility of above-knee amputation locally. He was seen by me on April 13, 2024, and considered appropriate for probable above-knee amputation. An MRI was performed, which confirmed osteomyelitis of the right tibia and patella. The patient noted to be hypomagnesemic and his magnesium was repleted. On April 15, 2024, he underwent right above-knee amputation without complication. Quite notably, the superficial femoral artery was completely occluded, calcified and dense. Dense, flat eschar on the stump was noted. The leg was warm down to the suprapatellar area. There is no erythema in the distal one-third of the leg. The amputation was approximately two-thirds distance in the lower aspect of the right upper leg. Postoperatively, he did well. By the day of discharge, he is healing the wound nicely with good viability of both superior and inferior flaps. A drain was not placed. Pain control was good with oral analgesics. The cyber intel planner organized for him to go to a local hotel as there is no [place] or intermediate care facilities available at this time and it is acknowledged that his wound should heal without special care, only routine care including avoidance of trauma to the wound site. It is noted that the patient prefers to live outdoors and rejects the confines of usual senior living. DISCHARGE MEDICATIONS: Included: 1. Doxycycline 100 mg p.o. b.i.d., #10. 2. Flagyl 250 mg two tablets p.o. t.i.d. with meals, #21. 3. Nicotine patch 20 mg daily, #30, refill two. 4. Oxycodone 5 mg one p.o. q.6 hours as needed for pain, #20. 5. Tramadol 50 mg p.o. q.4 hours as needed for pain, 30, refill one. 6. Tylenol plain 500 mg two tablets p.o. q.8 hours as needed for lesser pain, #30, refill zero. 7. Pregabalin 50 mg capsule one p.o. t.i.d., #90, refill zero. 8. Sennosides-docusate laxative 8.6/50 mg two p.o. b.i.d., #30, refill zero. Electronically Signed By: VERNON MENDOZA MD 04/20/24 1143 PATIENT NAME: MELA MICHELLE DISCHARGE SUMMARY DATE OF : 56 REPORT #: [id number] PHYSICIAN: VERNON MENDOZA MD PCP: NO PRIMARY CARE PHYSICIAN REPORT IS CONFIDENTIAL AND NOT TO BE RELEASED WITHOUT AUTHORIZATION [facility] [address], [place] [address] Signed DISCHARGE DIAGNOSES: 1. Sepsis related to cellulitis of right below-knee amputation stump with subsequent affirmation of osteomyelitis. 2. Status post right above-knee amputation on April 15, 2024. 3. Severe peripheral vascular disease including bilateral aortoiliac atherosclerotic disease. 4. Ongoing smoking. 5. Episodic illicit drug use (methamphetamine). 6. Preference of homelessness. FOLLOWUP PLAN: He will call to set up appointment to see me back in the office for wound check in four weeks. He is advised to avoid direct trauma to his right above-knee amputation stump site. Keep the Steri-Strips on and rewrap the stump on a daily basis with the two Torrey wraps provided. MD MANJULA Mora/NILAYL /[id number] cc: Dr. Travis Kothari MD Copies: OTIS KOTHARI MD ~ Electronically Signed By: VERNON MENDOZA MD 04/20/24 1143 PATIENT NAME: MELA MICHELLE DISCHARGE SUMMARY DATE OF : 56 REPORT #: [id number] PHYSICIAN: VERNON MENDOZA MD PCP: NO PRIMARY CARE PHYSICIAN REPORT IS CONFIDENTIAL AND NOT TO BE RELEASED WITHOUT AUTHORIZATION
== END 2024-04-17 14:45 | disposition home or self-care (01) | DRG 474 ==
LOC: ED 20:47 → MS 04-07 02:40 → CCU 04-07 02:40 → MS 04-16 11:05
PROVIDERS: Family Medicine; Student in an Organized Health Care Education/Training Program; Surgery; ADMIT Family Medicine; ATTEND Surgery
PROC: 02HV33Z Insertion of Infusion Device into Superior Vena Cava, Percutaneous Approach (ICD-10-PCS; 2024-04-07)
PROC: B543ZZA Ultrasonography of Right Jugular Veins, Guidance (ICD-10-PCS; 2024-04-07)
PROC: 3E03329 Introduction of Other Anti-infective into Peripheral Vein, Percutaneous Approach (ICD-10-PCS; 2024-04-07)
PROC: 0Y6C0Z3 Detachment at Right Upper Leg, Low, Open Approach (ICD-10-PCS; principal; 2024-04-15 13:30)
DX: T87.43 Infection of amputation stump, right lower extremity (principal); A41.1 Sepsis due to other specified staphylococcus; L03.115 Cellulitis of right lower limb; Z59.00 Homelessness unspecified; M86.661 Other chronic osteomyelitis, right tibia and fibula; Z66 Do not resuscitate; F17.210 Nicotine dependence, cigarettes, uncomplicated; I73.9 Peripheral vascular disease, unspecified; J44.9 Chronic obstructive pulmonary disease, unspecified; F10.90 Alcohol use, unspecified, uncomplicated; E83.42 Hypomagnesemia; E87.6 Hypokalemia; E16.2 Hypoglycemia, unspecified; F19.10 Other psychoactive substance abuse, uncomplicated; I70.0 Atherosclerosis of aorta; D69.6 Thrombocytopenia, unspecified; E83.39 Other disorders of phosphorus metabolism; Z89.522 Acquired absence of left knee; Z91.041 Radiographic dye allergy status; Z71.51 Drug abuse counseling and surveillance of drug abuser
CPT/HCPCS: 01232; 36415; 36556; 36592; 64447; 71045; 72193; 73700; 73701; 73722; 76942; 80048; 80053; 80074; 81001; 82533; 82553; 83036; 83605; 83735; 84100; 85025; 85060; 85651; 86140; 87040; 87070; 87075; 87077; 87186; 87205; 93005; 93010; 94640; 99285-25; A9270; A9579; J0692; J0878; J1100; J1160; J1171; J1200; J1650; J1720; J1885; J2250; J2405; J2704; J2765; J3010; J3411; J3475; J3480; J3490; J7030; J7040; J7060; J7121; Q9967

== ENCOUNTER 2024-04-21 15:49 | Inpatient (IN) | payer MEDICARE ==
[~2024-04-21] VITALS: Ht 157.5 cm; Wt 48.4 kg
[~2024-04-21 15:49] MED LIST changes: +ACETAMINOPHEN500 MG PO; +DOXYCYCLINE HY100 MG PO; +METRONIDAZOLE250 MG PO; +NICOTINE1 EAC2 TD; +OXYCODONE HCL5 MG PO; +PREGABALIN50 MG PO; +STIMULANT LAXA1 EACH PO; +TRAMADOL HCL50 MG PO; +TYLENOL EXTRA500 MG PO
--- OUTSIDE RECORDS SUMMARY | 2024-04-21 15:50 | XMS ---
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 ([facility]) 4 YOLA Hernandez [address] TOTAL 14 NOTE: Visits indicate total known visits. ED/UCC VISIT TRACKING (12 MO.) 04/21/2024 15:50 [facility] [place] TYPE: Emergency COMPLAINT: - BACK SPASMS,RT LEG REDNESS 04/06/2024 20:48 [facility] [place] TYPE: Emergency COMPLAINT: - EDWARDS BITE 02/25/2024 16:58 [facility] [place] ([facility] Hale) TYPE: Emergency DIAGNOSES: - Alcohol use, unspecified with intoxication, unspecified - Non-pressure chronic ulcer of back with unspecified severity - Rectal Pain 02/24/2024 07:32 [facility] [place] ([facility] Hale) TYPE: Emergency DIAGNOSES: - Alcohol use, unspecified with intoxication, uncomplicated - Alcohol Intoxication 02/23/2024 10:10 [facility] [place] ([facility] Hale) TYPE: Emergency DIAGNOSES: - Acquired absence of left leg above knee - Acquired absence of right leg below knee - Alcohol dependence, uncomplicated - Other injury of unspecified body region, initial encounter - Leg Pain (Non-traumatic) - wound check 02/22/2024 14:27 [facility]omara [place] ([facility]offrey Hale) TYPE: Emergency DIAGNOSES: - Procedure and treatment not carried out because of patient's decision for other reasons - ambulance - Extremity Pain 02/19/2024 04:02 [facility] [place] TYPE: Emergency COMPLAINT: - MEDICAL DIAGNOSES: - Alcohol abuse with intoxication, unspecified - Atherosclerosis of [place] arteries of extremities with rest pain, right leg - Dependence on wheelchair - Homelessness unspecified - Nontraumatic ischemic infarction of muscle, unspecified lower leg - Other mcfp (current) drug therapy - Presence of other vascular implants and grafts - Procedure and treatment not carried out because of patient's decision for other reasons - Right lower quadrant pain - Unilateral inguinal hernia, without obstruction or gangrene, not specified as recurrent 02/13/2024 06:59 [facility] [place] TYPE: Emergency COMPLAINT: - FALL 02/02/2024 16:35 [facility] [place] (Ge[facility] Hale) TYPE: Emergency DIAGNOSES: - Pain in left leg - Pain in right leg - Vomiting, unspecified - bilateral leg pain,vomiting - Emesis - Leg Pain 01/01/2024 18:20 [facility] [place] ([facility]) TYPE: Emergency DIAGNOSES: - Acute respiratory failure with hypoxia - Alcohol use, unspecified with intoxication, uncomplicated - Chronic obstructive pulmonary disease with (acute) exacerbation - Abdominal Pain - Altered Mental Status 09/22[facility]2023 23[facility] DIAGNOSES: - Headache, unspecified 09/10/2023 22:45 [facility] [place] [facility] 08/26/2023 18:34 [facility] [place] TYPE: Emergency DIAGNOSES: - Unspecified injury of head, initial encounter 07/15/2023 09:55 [facility] [place] [facility] DIAGNOSES: 43562. Worms 64031. Worms/helminths 83865. Cellulitis of right lower limb 76977. Other injury of unspecified body region, initial encounter INPATIENT VISIT TRACKING (12 MO.) 04/07/2024 02:40 [facility] [place] TYPE: Medical Surgical COMPLAINT: - SEPSIS,CELLULITIS,PVD, B/L AMPUTEE,HYPOMAGNESIEMIA DIAGNOSES: - Acquired absence of left knee - Acquired absence of left knee - Acute respiratory failure with hypoxia - Alcohol use, unspecified, uncomplicated - Alcohol use, unspecified, uncomplicated - Atherosclerosis of aorta - Atherosclerosis of aorta - Cellulitis of right lower limb - Cellulitis of right lower limb - Chronic obstructive pulmonary disease, unspecified - Chronic obstructive pulmonary disease, unspecified - Do not resuscitate - Do not resuscitate - Drug abuse counseling and surveillance of drug abuser - Drug abuse counseling and surveillance of drug abuser - Homelessness unspecified - Homelessness unspecified - Hypoglycemia, unspecified - Hypoglycemia, unspecified - Hypokalemia - Hypokalemia - Hypomagnesemia - Hypomagnesemia - Infection of amputation stump, right lower extremity - Infection of amputation stump, right lower extremity - Nicotine dependence, cigarettes, uncomplicated - Nicotine dependence, cigarettes, uncomplicated - Other chronic osteomyelitis, right tibia and fibula - Other chronic osteomyelitis, right tibia and fibula - Other disorders of phosphorus metabolism - Other disorders of phosphorus metabolism - Other psychoactive substance abuse, uncomplicated - Other psychoactive substance abuse, uncomplicated - Peripheral vascular disease, unspecified - Peripheral vascular disease, unspecified - Radiographic dye allergy status - Radiographic dye allergy status - Sepsis due to other specified staphylococcus - Sepsis due to other specified staphylococcus - Sepsis, unspecified organism - Severe sepsis without septic shock - Thrombocytopenia, unspecified - Thrombocytopenia, unspecified 02/13/2024 11:[address] [facility] [place] TYPE: Medical Surgical [...] specified as acute or chronic 01/01/2024 18:20 [facility] ([facility]) [...] malnutrition - Unspecified toxic encephalopathy 09/10/2023 22:45 [facility] TYPE: Surgery DIAGNOSES: - Alcohol dependence with withdrawal, uncomplicated - Alcoholic cirrhosis of liver without ascites - Cellulitis of right lower limb - Homelessness unspecified - Hypokalemia - Hypomagnesemia - Moderate protein-calorie malnutrition - Nausea with vomiting, unspecified - Pneumonitis due to inhalation of food and vomit - Sepsis, unspecified organism - Severe sepsis with septic shock 04/28/2023 17:56 [facility] TYPE: General Medicine DIAGNOSES: 60496. Alcohol use, unspecified with withdrawal, uncomplicated . Cellulitis of right lower limb [email or web address]
[2024-04-21] MEDS ORDERED: SODIUM CHLORIDE 0.9% 1,000 ML IV ONE (16:15)
[2024-04-21 16:31] LABS: EOSINOPHILS 0.4 % (0-6); HEMATOCRIT 33.2 % (35.0-50.0); HEMOGLOBIN 10.8 g/dL (12.0-18.0); LYMPHOCYTES 18.5 % (24-44); MCH 30.6 (27-36); MCHC 32.4 g/dl (30-36); MCV 94.6 fl (81-99); MONOCYTES 12.2 % (0-12); NEUTROPHILS 65.9 % (39-80); PLATELET COUNT 386 K/uL (140-440); RBC 3.51 M/ul (4.3-5.7); RDW 18.7 (10.5-15.0)
[2024-04-21 16:52] LABS: LACTIC ACID, BLOOD 4.2 mmol/L (0.4-2.0)
[2024-04-21 16:54] LABS: ALBUMIN 2.6 g/dL (3.4-5.0); ALBUMIN/GLOBULIN RATIO 0.47 (1.1-2.4); ANION GAP 20.7 (7-21); BILIRUBIN, TOTAL 0.6 ng/dL (0.2-1.0); BUN/CREATININE RATIO 14.45 (6.0-28.6); CALCIUM 8.9 mg/dL (8.5-10.1); CREATININE, SERUM 0.83 mg/dL (0.70-1.30); POTASSIUM 3.7 mmol/L (3.5-5.1); PROTEIN, TOTAL 8.1 g/dL (6.4-8.2)
[2024-04-21] MEDS ORDERED: SODIUM CHLORIDE 0.9% 500 ML IV PRN (17:00)
[2024-04-21] MEDS ORDERED: CEFTRIAXONE/SODIUM CHLORIDE 2 GM/100 ML PIGGYBACK IV ONE (17:00)
[2024-04-21 18:20] LABS: LACTIC ACID, BLOOD 3.2 mmol/L (0.4-2.0)
[2024-04-21 18:53] LABS: BILIRUBIN, URINE NEGATIVE (negative); BLOOD/HGB, URINE NEGATIVE (Negative); KETONE, URINE NEGATIVE (Negative); LEUK ESTERASE, URINE NEGATIVE (negative); NITRITE, URINE NEGATIVE (negative)
[2024-04-21 18:59] LABS: BACTERIA, URINE NONE SEEN /hpf (negative); CASTS, URINE NONE SEEN \\lpf; COLLECTION TYPE, URINE CLEAN CATCH; CRYSTALS, URINE NONE SEEN (0-1+); EPITHELIAL CELLS, URINE SQUAMOUS 1+ /lpf (0-1+); RED BLOOD CELLS, URINE 0-1 /hpf (0-5); REFLEX CULTURE, URINE No (No)
[2024-04-21] MEDS ORDERED: ondansetron HCL 4 MG/2 ML VIAL ONE (19:11)
[2024-04-21] MEDS ORDERED: MIDAZOLAM HCL 2 MG/2 ML VIAL ONE ×2 (19:11→20:20)
[2024-04-21] MEDS ORDERED: fentaNYL citrate 100 MCG/2 ML VIAL ONE (19:11)
[2024-04-21] MEDS ORDERED: BUPIVACAINE 0.75% IN DEXTROSE 2 ML AMP ONE (19:26)
[2024-04-21] MEDS ORDERED: LIDOCAINE HCL 2% 20 MG/ML VIAL INJ ONE (19:28)
[2024-04-21] MEDS ORDERED: LACTATED RINGER'S 1,000 ML IV ONE (20:21)
[2024-04-21] MEDS ORDERED: Ropivacaine HCl 0.5% 30 ML VIAL ONE (20:43)
[2024-04-21] MEDS ORDERED: DEXAMETHASONE SOD PHOS 4 MG/ML VIAL ONE (20:43)
[2024-04-21 21:25] VITALS: BP 101/64
[2024-04-21] MEDS ORDERED: OXYCODONE HCL 5 MG TAB PO PRN (21:30)
[2024-04-21] MEDS ORDERED: ACETAMINOPHEN 325 MG TAB PO PRN (21:30)
[2024-04-21] MEDS ORDERED: droPERidol 5 MG/2 ML VIAL IV PRN (21:30)
[2024-04-21] MEDS ORDERED: HYDROmorphone HCL 1 MG/ML SYR IV PRN ×2 (21:30)
[2024-04-21] MEDS ORDERED: IBLOOD GLUCOSE TEST STRIP 1 EA TEST VI PRN (21:30)
[2024-04-21] MEDS ORDERED: DEXTROSE 5% - LACTATED RINGERS 1,000 ML IV SCH (21:30)
[2024-04-21] MEDS ORDERED: PROCHLORPERAZINE EDISYLATE 10 MG/2 ML VIAL IV PRN ×2 (21:30)
[2024-04-21] MEDS ORDERED: fentaNYL citrate 50 MCG/ML SDV IV PRN (21:30)
[2024-04-21] MEDS ORDERED: NALOXONE HCL 0.4 MG SYR IV PRN (21:30)
[2024-04-21] MEDS ORDERED: ondansetron HCL 4 MG/2 ML VIAL IV PRN ×2 (21:30)
[2024-04-21] MEDS ORDERED: ACETAMINOPHEN 650 MG SUPP PR PRN (21:30)
[2024-04-21] MEDS ORDERED: LORazepam 2 MG/ML VIAL IV/IM PRN (21:45)
[2024-04-21] MEDS ORDERED: LORazepam 1 MG TAB PO PRN (21:45)
[2024-04-21 22:00] VITALS: BP 113/66
[2024-04-21] MEDS ORDERED: CEFAZOLIN SODIUM 2 GM/20 ML SYR IV SCH (22:00)
[2024-04-21 22:30] VITALS: BP 111/70
[2024-04-21 23:00] VITALS: BP 120/79
[2024-04-21 23:30] VITALS: BP 126/71
[2024-04-22] VITALS (13 sets, daily range): BP systolic 89–134; BP diastolic 51–112
[2024-04-22 05:19] LABS: BASOPHILS 0.5 % (0-2); EOSINOPHILS 0.9 % (0-6); HEMATOCRIT 24.7 % (35.0-50.0); HEMOGLOBIN 8.3 g/dL (12.0-18.0); LYMPHOCYTES 13.9 % (24-44); MCH 31.1 (27-36); MCHC 33.6 g/dl (30-36); MCV 92.8 fl (81-99); MONOCYTES 3.1 % (0-12); NEUTROPHILS 81.6 % (39-80); PLATELET COUNT 220 K/uL (140-440); RBC 2.66 M/ul (4.3-5.7); RDW 18.5 (10.5-15.0)
[2024-04-22 05:32] LABS: ANION GAP 10.9 (7-21); BUN/CREATININE RATIO 16.21 (6.0-28.6); CREATININE, SERUM 0.37 mg/dL (0.70-1.30); POTASSIUM 2.9 mmol/L (3.5-5.1)
[2024-04-22 05:38] LABS: CALCIUM 6.2 mg/dL (8.5-10.1)
[2024-04-22] MEDS ORDERED: POTASSIUM CHLORIDE 10 MEQ TABCR PO ONE ×2 (06:30→09:15)
[2024-04-22] MEDS ORDERED: MAGNESIUM SULFATE 2 GM/50 ML BAG IV SCH (06:30)
[2024-04-22] MEDS ORDERED: Calcium Gluconate in NS 1,000 MG/50 ML BAG IV SCH (06:45)
[2024-04-22] MEDS ORDERED: CALCIUM GLUCONATE 2,000 MG in DEXTROSE 5% 100 ML IV SCH (08:00)
[2024-04-22] MEDS ORDERED: DOCUSATE SODIUM 100 MG CAP PO SCH (09:00)
[2024-04-22] MEDS ORDERED: ENOXAPARIN SODIUM 40 MG/0.4 ML SYR SUB-Q SCH (09:00)
[2024-04-22] MEDS ORDERED: POLYETHYLENE GLYCOL 3350 1 PACKET PO SCH (09:00)
[2024-04-22] MEDS ORDERED: MAGNESIUM OXIDE 400 MG TABLET PO SCH (09:15)
[2024-04-22] MEDS ORDERED: CALCIUM CARBONATE 500 MG CHEW PO SCH (09:15)
--- NOTE | 2024-04-22 09:33 | CONS ---
[facility] [address], [place] [address] Signed DATE OF CONSULTATION: 04/21/2024 CHIEF COMPLAINT: Right AKA wound dehiscence. HISTORY OF PRESENT ILLNESS: Mela is a 63-year-old gentleman, who had worked in the [employer] for 14 years. 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 He suffered a right wrist injury and ended up on social security and disability. He has been a smoker his whole life. He likes to drink a 5th of whiskey a day. He does do meth intermittently. He ended up with terrible peripheral arterial disease. He has a left fairly proximal AKA amputation. He said he has had that amputated several times. He came to our hospital while back with pyelonephritis. He ended up with sepsis from his right BKA stump where he walks around on the tibia and the patella. There was some consideration that he might go for revascularization at our [facility]. That never worked out. Dr. Busby had helped him with a right AKA six days ago. This gentleman chooses to be homeless despite the fact that his daughter lives about 45 minutes away. He is back now six days postop of the dehiscence of the wound where he has pushed the femur right through the midportion of the incision. He has been given some IV fluids and Rocephin. His lactic acid is coming down. White count is normal. In Dr. Busby's absence, I was asked to see him as a local general surgeon on-call. PAST MEDICAL HISTORY: COPD and peripheral arterial disease. PAST SURGICAL HISTORY: Includes the left AKA and the right AKA. He has had vascular surgery in the groins and legs and I think he has had a bypass surgery for the heart. SOCIAL HISTORY: Likes to smoke. He likes to drink a 5th of vodka a day. He does do meth intermittently. He chooses to be homeless. He has been twice. He has a son whom he is estranged from, but he has a daughter in [place], [place] about 45 minutes away. He has no primary care provider. FAMILY HISTORY: None. REVIEW OF SYSTEMS: None. ALLERGIES: Iodine. Electronically Signed By: OTIS SEPULVEDA MD 04/22/24 0933 PATIENT NAME: MELA MICHELLE CONSULTATION DATE OF : 56 REPORT #: [id number] PHYSICIAN: OTIS SEPULVEDA MD PCP: NO PRIMARY CARE PHYSICIAN REPORT IS CONFIDENTIAL AND NOT TO BE RELEASED WITHOUT AUTHORIZATION [facility] [address] [place], [place] [address] Signed MEDICATIONS: Pregabalin 50 mg p.o. t.i.d. PHYSICAL EXAMINATION: VITAL SIGNS: Blood pressure is 102/50, heart rate 101, respiratory rate 16, temperature is 99.6. He is 94% on room air. He is 5 feet 2 inches tall at 48 kg with a body mass index of 19. GENERAL: Mela is a 63-year-old, very malodorous disheveled gentleman. He is always very terse. He is bundled up in all of his clothes and was not overly cooperative. locate the right AKA stump. push the femur through his wound. No obvious local signs or symptoms of infection. LABORATORY DATA: White blood count 7, hemoglobin 10, neutrophils 65, platelets 386. Creatinine 0.8. Lactic acid was 4.2, it is down 3.2. His albumin is 2.6. Blood cultures are pending. RADIOGRAPHIC STUDIES: None. ASSESSMENT AND PLAN: Mela is a 63-year-old homeless gentleman who underwent a right AKA just six days ago. He has predictably dehisced the wound in his back in our local emergency room. I am asked to see him as a local general surgeon. He has been given Rocephin and some pain control. I explained to Mela when he is taken to the operating room expeditiously and we will clean this up and close the wound once again. We will obviously have to get our discharge planners involved. This is Wednesday night and we will have to see if what we can do for this gentleman. He has expressed understanding, agrees above plan. Of course, he understands there is risk including, but not limited to bleeding, infection, scarring, change in contour of the skin as well as recurrent wound dehiscence or need for additional amputation. He has expressed understanding and would like to proceed. Otis Sepulveda MD [facility]/NILAYL /[id number] Electronically Signed By: OTIS SEPULVEDA MD 04/22/24 0933 PATIENT NAME: MELA MICHELLE CONSULTATION DATE OF : 56 REPORT #: [id number] PHYSICIAN: OTIS SEPULVEDA MD PCP: NO PRIMARY CARE PHYSICIAN REPORT IS CONFIDENTIAL AND NOT TO BE RELEASED WITHOUT AUTHORIZATION [facility] [address] [facility] [place], [place] [address] Signed Copies: ~ Electronically Signed By: OTIS SEPULVEDA MD 04/22/24 0933 PATIENT NAME: MELA MICHELLE CONSULTATION DATE OF : 56 REPORT #: [id number] PHYSICIAN: OTIS SEPULVEDA MD PCP: NO PRIMARY CARE PHYSICIAN REPORT IS CONFIDENTIAL AND NOT TO BE RELEASED WITHOUT AUTHORIZATION
--- NOTE | 2024-04-22 09:33 | OR ---
[facility] [address] [place], [place] [address] Signed DATE OF OPERATION: 04/21/2024 SURGEON: Otis Kothari MD PREOPERATIVE DIAGNOSIS: Wound dehiscence, right above knee amputation. POSTOPERATIVE DIAGNOSIS: Wound dehiscence, right above knee amputation. PROCEDURE: Revision of right above knee amputation (3 cm). ESTIMATED BLOOD LOSS: 25 mL. 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 He had injured his right wrist and ended up on social security and disability. He has been twice and has a son who no longer interacts with his father. He has a daughter about 45 minutes away. Mela chooses to be homeless, wanting to drink a 5th of vodka a day as well as smoke and use meth intermittently throughout the month. He has terrible peripheral arterial disease. He has had his left AKA several times in [place]. He then had a right [id number]-[id number] amputation as well. He gets around on that right patella and tibia. He wore it through all the way to the bone. He was septic and had some osteomyelitis. He ended at our hospital. There was some consideration that he might end up going to our [facility] for consideration of revascularization. In the end, that never worked out. Dr. Busby had performed his right AKA six days ago. He was doing well and had been discharged to a local facility where he could rent a room. Unfortunately, he is back and he has completely pushed the tibia through the wound. In Dr. Busby's absence, I was asked to see him as a local general surgeon technical sales consultant by our ER physician. I had met with Mela in the ER. He understands it has to be revised. He has been through the same process with his left leg. He understands the nature of the surgery. There is risk including, but not limited to bleeding, infection, scarring, change in contour of the skin as well as recurrent wound dehiscence. He had expressed understanding wished to proceed. PROCEDURE IN DETAIL: Mela was taken down to our operating room and given a spinal anesthetic by our nurse heel wheeler. He was then given propofol infusion. We were able to prep and drape his Electronically Signed By: OTIS KOTHARI MD 04/22/24 0933 PATIENT NAME: MELA MICHELLE OPERATIVE REPORT DATE OF : 56 REPORT #: [id number] PHYSICIAN: OTIS KOTHARI MD PCP: NO PRIMARY CARE PHYSICIAN REPORT IS CONFIDENTIAL AND NOT TO BE RELEASED WITHOUT AUTHORIZATION [facility] [address] [place], [place] [address] Signed right leg in the usual sterile manner. We opened up the incision and debrided the edges of the muscles. The wound was contracted a bit and we headed. Take the bone back about 3 cm with the reciprocating saw. That allowed us to bring the muscle and fascial planes back over the into the bone. This was secured with multiple [id number] #1 Vicryl sutures. The wound had been irrigated and suctioned out several times. We then closed the dermis with interrupted 3-0 subcuticular Monocryl sutures. The skin edges were reapproximated with a running 5-0 fast absorbing plain gut suture. Dry gauze along with a Kerlix gauze and then Torrey wrap was applied. Mela was given a femoral block under ultrasound guidance by our nurse heel wheeler. After this, he was taken down to our floor in stable condition. Otis Kothari MD ALB/MODL /[id number] cc: MD Charlie Cao MD Patient chart Copies: OTIS KOTHARI MD, JOHN MD ~ Electronically Signed By: OTIS KOTHARI MD 04/22/24 0933 PATIENT NAME: MELA MICHELLE OPERATIVE REPORT DATE OF : 56 REPORT #: [id number] PHYSICIAN: OTIS KOTHARI MD PCP: NO PRIMARY CARE PHYSICIAN REPORT IS CONFIDENTIAL AND NOT TO BE RELEASED WITHOUT AUTHORIZATION
[2024-04-23] VITALS (7 sets, daily range): BP systolic 92–158; BP diastolic 51–96
[2024-04-23] MEDS ORDERED: ACETAMINOPHEN 500 MG TAB PO PRN (05:30)
[2024-04-23] MEDS ORDERED: ACETAMINOPHEN 325 MG TAB PO PRN (08:30)
[2024-04-23] MEDS ORDERED: CEPHALEXIN MONOHYDRATE 500 MG CAP PO SCH (09:00)
[2024-04-23 09:03] LABS: BASOPHILS 0.5 % (0-2); EOSINOPHILS 0.4 % (0-6); HEMATOCRIT 26.3 % (35.0-50.0); HEMOGLOBIN 8.6 g/dL (12.0-18.0); MCH 30.9 (27-36); MCHC 32.5 g/dl (30-36); MONOCYTES 8.8 % (0-12); NEUTROPHILS 63.3 % (39-80); PLATELET COUNT 213 K/uL (140-440); RBC 2.77 M/ul (4.3-5.7); RDW 18.9 (10.5-15.0)
[2024-04-23 09:16] LABS: ANION GAP 10.9 (7-21); BUN/CREATININE RATIO 10.95 (6.0-28.6); CALCIUM 8.7 mg/dL (8.5-10.1); CREATININE, SERUM 0.73 mg/dL (0.70-1.30); POTASSIUM 3.9 mmol/L (3.5-5.1)
[2024-04-23 09:17] LABS: MAGNESIUM 1.7 mg/dL (1.8-2.4); PHOSPHORUS, INORGANIC 2.3 mg/dL (2.5-4.9)
[2024-04-23] MEDS ORDERED: MAGNESIUM SULFATE 2 GM/50 ML BAG IV ONE (11:30)
[2024-04-23] MEDS ORDERED: SODIUM PHOSPHATE 30 MMOL in DEXTROSE 5% 250 ML IV ONE (12:30)
[2024-04-24] VITALS (8 sets, daily range): BP systolic 82–95; BP diastolic 46–62
[2024-04-24 05:46] LABS: ANION GAP 11.4 (7-21); CALCIUM 8.4 mg/dL (8.5-10.1); CREATININE, SERUM 0.5 mg/dL (0.70-1.30); PHOSPHORUS, INORGANIC 5.2 mg/dL (2.5-4.9); POTASSIUM 4.4 mmol/L (3.5-5.1)
[2024-04-24] MEDS ORDERED: ALBUMIN HUMAN 25% 100 ML BTL IV ONE (08:15)
[2024-04-25] VITALS (9 sets, daily range): BP systolic 92–109; BP diastolic 54–71
[2024-04-26] VITALS (8 sets, daily range): BP systolic 94–122; BP diastolic 54–96
[2024-04-26] MEDS ORDERED: LIDOCAINE HCL 4% 1 EACH PATCH TD SCH (11:15)
[2024-04-26] MEDS ORDERED: LIDOCAINE PATCH REMOVAL 1 EA TD SCH (21:00)
[2024-04-27 05:47] VITALS: BP 115/63
[2024-04-27 09:55] VITALS: BP 114/63
[2024-04-27 09:56] VITALS: BP 114/63
[2024-04-27] MEDS ORDERED: CEPHALEXIN500 MG PO ×2 (11:17)
[2024-04-28] MEDS ORDERED: LIDODERM1 EACH TOP (09:16)
== END 2024-04-27 11:25 | disposition home or self-care (01) | DRG 493 ==
LOC: ED 15:49 → MS 18:59 → CCU 18:59 → MS 04-23 07:20
PROVIDERS: Emergency Medicine; Student in an Organized Health Care Education/Training Program; ADMIT Colon & Rectal Surgery; ATTEND Colon & Rectal Surgery
PROC: 0QBG0ZZ Excision of Right Tibia, Open Approach (ICD-10-PCS; principal; 2024-04-22)
PROC: 30233J1 Transfusion of Nonautologous Serum Albumin into Peripheral Vein, Percutaneous Approach (ICD-10-PCS; 2024-04-24)
DX: T87.81 Dehiscence of amputation stump (principal); F10.239 Alcohol dependence with withdrawal, unspecified; L03.115 Cellulitis of right lower limb; Z59.00 Homelessness unspecified; M86.9 Osteomyelitis, unspecified; R64 Cachexia; Z68.1 Body mass index [BMI] 19.9 or less, adult; Z66 Do not resuscitate; J44.9 Chronic obstructive pulmonary disease, unspecified; E87.6 Hypokalemia; E83.42 Hypomagnesemia; G89.29 Other chronic pain; M54.6 Pain in thoracic spine; F17.210 Nicotine dependence, cigarettes, uncomplicated; F15.10 Other stimulant abuse, uncomplicated; E83.39 Other disorders of phosphorus metabolism; I70.421 Atherosclerosis of autologous vein bypass graft(s) of the extremities with rest pain, right leg; E88.09 Other disorders of plasma-protein metabolism, not elsewhere classified; E83.51 Hypocalcemia; I95.9 Hypotension, unspecified; F10.229 Alcohol dependence with intoxication, unspecified; Y83.4 Other reconstructive surgery as the cause of abnormal reaction of the patient, or of later complication, without mention of misadventure at the time of the procedure; Z91.041 Radiographic dye allergy status; Z79.899 Other long term (current) drug therapy; Z79.891 Long term (current) use of opiate analgesic; Z89.612 Acquired absence of left leg above knee; Z89.611 Acquired absence of right leg above knee; Z87.440 Personal history of urinary (tract) infections; Z98.890 Other specified postprocedural states; Z95.1 Presence of aortocoronary bypass graft
CPT/HCPCS: 01232; 36415; 64447; 80048; 80053; 81001; 83605; 83735; 84100; 85025; 87040; 94760; 96365; 97162; 97530; 99284-25; A9270; A9270-GY; J0690; J0696; J1100; J1650; J2250; J2405; J2795; J3010; J3475; J7030; J7040; J7060; J7121; P9047

== ENCOUNTER 2024-04-28 08:39 | Emergency (ER) | payer MEDICARE ==
[~2024-04-28] VITALS: Ht 157.5 cm; Wt 44.5 kg
[~2024-04-28 08:39] MED LIST changes: +CEPHALEXIN500 MG PO
--- OUTSIDE RECORDS SUMMARY | 2024-04-28 08:40 | XMS ---
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 ED/UCC VISIT TRACKING (12 MO.) 04/28/2024 08:39 [facility] TYPE: Emergency COMPLAINT: - PAIN 04/21/2024 15:50 [facility] [place] TYPE: Emergency COMPLAINT: - BACK SPASMS,RT LEG REDNESS 04/06/2024 20:48 [facility] TYPE: Emergency COMPLAINT: - EDWARDS BITE 02/25/2024 16:58 [facility] Geoffrey [facility] (Geoffrey Hale) TYPE: Emergency DIAGNOSES: - Alcohol use, unspecified with intoxication, unspecified - Non-pressure chronic ulcer of back with unspecified severity - Rectal Pain 02/24/2024 07:32 [facility] Geoffrey [facility] ([facility] Hale) TYPE: Emergency DIAGNOSES: - Alcohol use, unspecified with intoxication, uncomplicated - Alcohol Intoxication 02/23/2024 10:10 [facility] Geoffrey [facility] ([facility]) TYPE: Emergency DIAGNOSES: - Acquired absence of left leg above knee - Acquired absence of right leg below knee - Alcohol dependence, uncomplicated - Other injury of unspecified body region, initial encounter - Leg Pain (Non-traumatic) - wound check 02/22/2024 14:27 [facility] Geoffrey Hale MARIA R ([facility]) TYPE: Emergency DIAGNOSES: - Procedure and treatment not carried out because of patient's decision for other reasons - ambulance - Extremity Pain 02/19/2024 04:02 [facility] [place] TYPE: Emergency COMPLAINT: - MEDICAL DIAGNOSES: - Alcohol abuse with intoxication, unspecified - Atherosclerosis of [place] arteries of extremities with rest pain, right leg - Dependence on wheelchair - Homelessness unspecified - Nontraumatic ischemic infarction of muscle, unspecified lower leg - Other shorts sifter (current) drug therapy - Presence of other vascular implants and grafts - Procedure and treatment not carried out because of patient's decision for other reasons - Right lower quadrant pain - Unilateral inguinal hernia, without obstruction or gangrene, not specified as recurrent 02/13/2024 06:59 [facility] [place] [facility]: Emergency COMPLAINT: - FALL 02/02/2024 16:35 [facility] [place] (Geoffrey Hale) TYPE: Emergency DIAGNOSES: - Pain in left leg - Pain in right leg - Vomiting, unspecified - bilateral leg pain,vomiting - Emesis - Leg Pain 01/01/2024 18:20 [facility] [place] (Ge[facility]rey Hale) TYPE: Emergency DIAGNOSES: - Acute respiratory failure with hypoxia - Alcohol use, unspecified with intoxication, uncomplicated - Chronic obstructive pulmonary disease with (acute) exacerbation - Abdominal Pain - Altered Mental Status 09/22/2023 23:34 [facility] [place] [facility] DIAGNOSES: - Headache, unspecified 09/10/2023 22:45 [facility] [place] TYPE: Emergency 08/26/2023 18:34 [facility] [place] TYPE: Emergency DIAGNOSES: - Unspecified injury of head, initial encounter 07/15/2023 09:55 [facility] [place] [facility] DIAGNOSES: 80286. Worms 53551. Worms/helminths 12016. Cellulitis of right lower limb 83151. Other injury of unspecified body region, initial encounter INPATIENT VISIT TRACKING (12 MO.) 04/21/2024 18:59 [facility] [place] TYPE: Medical Surgical COMPLAINT: - WOUND DEHISCENCE RIGHT LEG 04/07/2024 02:40 [facility] [place] TYPE: Medical [...] unspecified - Thrombocytopenia, unspecified 02/13/2024 11:[address] [facility] [place] TYPE: Medical Surgical [...] specified as acute or chronic 01/01/2024 18:20 [facility] Geoffrey HECK (Geoffrey Hale) TYPE: Medical [...] malnutrition - Unspecified toxic encephalopathy 09/10/2023 22:45 [facility] TYPE: Surgery DIAGNOSES: - Alcohol dependence with withdrawal, uncomplicated - Alcoholic cirrhosis of liver without ascites - Cellulitis of right lower limb - Homelessness unspecified - Hypokalemia - Hypomagnesemia - Moderate protein-calorie malnutrition - Nausea with vomiting, unspecified - Pneumonitis due to inhalation of food and vomit - Sepsis, unspecified organism - Severe sepsis with septic shock 04/28/2023 17:56 [facility] TYPE: General Medicine DIAGNOSES: 14925. Alcohol use, unspecified with withdrawal, uncomplicated 85240. Cellulitis of right lower limb [email or web address]
[2024-04-28] MEDS ORDERED: LIDOCAINE HCL 4% 1 EACH PATCH TD ONE (09:00)
[2024-04-28] MEDS ORDERED: OXYCODONE/APAP 5/325 TAB PO ONE (09:00)
[2024-04-28] MEDS ORDERED: LIDODERM1 EACH TOP (09:16)
[2024-04-28 09:44] VITALS: BP 113/83
[2024-04-28] MEDS ORDERED: LIDOCAINE PATCH REMOVAL 1 EA TD SCH (21:00)
== END 2024-04-28 09:45 | disposition home or self-care (01) ==
LOC: ED 08:39
DX: M79.604 Pain in right leg (principal); M54.9 Dorsalgia, unspecified; G89.29 Other chronic pain; J44.9 Chronic obstructive pulmonary disease, unspecified; Z88.8 Allergy status to other drugs, medicaments and biological substances; Z79.899 Other long term (current) drug therapy
CPT/HCPCS: 99283; A9270

== ENCOUNTER 2024-04-28 16:37 | Emergency (ER) | payer MEDICARE ==
[~2024-04-28] VITALS: Ht 157.5 cm; Wt 44.5 kg
[~2024-04-28 16:37] MED LIST changes: +LIDODERM1 EACH TOP
--- OUTSIDE RECORDS SUMMARY | 2024-04-28 16:38 | XMS ---
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 ED/UCC VISIT TRACKING (12 MO.) 04/28/2024 16:38 [facility] [place] TYPE: Emergency COMPLAINT: - INTOXICATION 04/28/2024 08:39 [facility] [place] TYPE: Emergency COMPLAINT: - PAIN 04/21/2024 15:50 [facility] [place] TYPE: Emergency COMPLAINT: - BACK SPASMS,RT LEG REDNESS 04/06/2024 20:48 [place] [place] TYPE: Emergency COMPLAINT: - EDWARDS BITE 02/25/2024 16:58 [facility] Geoffrey HECK ([place]) TYPE: Emergency DIAGNOSES: - Alcohol use, unspecified with intoxication, unspecified - Non-pressure chronic ulcer of back with unspecified severity - Rectal Pain 02/24/2024 07:32 [facility] Geoffrey HECK ([place]) TYPE: Emergency DIAGNOSES: - Alcohol use, unspecified with intoxication, uncomplicated - Alcohol Intoxication 02/23/2024 10:10 [facility] [place] (Geoffrey Hale) TYPE: Emergency DIAGNOSES: - Acquired absence of left leg above knee - Acquired absence of right leg below knee - Alcohol dependence, uncomplicated - Other injury of unspecified body region, initial encounter - Leg Pain (Non-traumatic) - wound check 02/22/2024 14:27 [facility] [place] (Geoffrey Hale) TYPE: Emergency DIAGNOSES: - Procedure and treatment not carried out because of patient's decision for other reasons - ambulance - Extremity Pain 02/19/2024 04:02 [facility] [place]iel [place] TYPE: Emergency COMPLAINT: - MEDICAL DIAGNOSES: - Alcohol abuse with intoxication, unspecified - Atherosclerosis of lower [place] arteries of extremities with rest pain, right leg - Dependence on wheelchair - Homelessness unspecified - Nontraumatic ischemic infarction of muscle, unspecified lower leg - Other usp (current) drug therapy - Presence of other vascular implants and grafts - Procedure and treatment not carried out because of patient's decision for other reasons - Right lower quadrant pain - Unilateral inguinal hernia, without obstruction or gangrene, not specified as recurrent 02/13/2024 06:59 [facility] [place]iel [place] TYPE: Emergency COMPLAINT: - FALL 02/02/2024 16:35 [facility] Geoffrey HECK ([place]) TYPE: Emergency DIAGNOSES: - Pain in left leg - Pain in right leg - Vomiting, unspecified - bilateral leg pain,vomiting - Emesis - Leg Pain 01/01/2024 18:20 [facility] Geoffrey HECK ([place]) TYPE: Emergency DIAGNOSES: - Acute respiratory failure with hypoxia - Alcohol use, unspecified with intoxication, uncomplicated - Chronic obstructive pulmonary disease with (acute) exacerbation - Abdominal Pain - Altered Mental Status 09/22/2023 23:34 [facility] [place] TYPE: Emergency DIAGNOSES: - Headache, unspecified 09/10/2023 [facility] [place] [facility] 08/26/2023 [facility] [place] [facility] DIAGNOSES: - Unspecified injury of head, initial encounter 07/15/2023 09[facility] [place] [facility] DIAGNOSES: 28816. Worms 68070. Worms/helminths 29926. Cellulitis of right lower limb 59550. Other injury of unspecified body region, initial [...] specified as acute or chronic 01/01/2024 18:20 [facility] Geoffrey HECK ([place]) TYPE: Medical Surgical DIAGNOSES: - Acute respiratory [...] malnutrition - Unspecified toxic encephalopathy 09/10/2023 22:45 [facility] TYPE: Surgery DIAGNOSES: - Alcohol dependence with withdrawal, uncomplicated - Alcoholic cirrhosis of liver without ascites - Cellulitis of right lower limb - Homelessness unspecified - Hypokalemia - Hypomagnesemia - Moderate protein-calorie malnutrition - Nausea with vomiting, unspecified - Pneumonitis due to inhalation of food and vomit - Sepsis, unspecified organism - Severe sepsis with septic shock 04/28/2023 17:56 [facility] TYPE: General Medicine DIAGNOSES: 19065. Alcohol use, unspecified with withdrawal, uncomplicated 67014. Cellulitis of right lower limb [email or web address]
[2024-04-28 21:18] VITALS: BP 112/70
== END 2024-04-28 21:18 | disposition home or self-care (01) ==
LOC: ED 16:37
DX: T87.89 Other complications of amputation stump (principal); Y83.8 Other surgical procedures as the cause of abnormal reaction of the patient, or of later complication, without mention of misadventure at the time of the procedure; J44.9 Chronic obstructive pulmonary disease, unspecified; Z59.00 Homelessness unspecified; Z88.8 Allergy status to other drugs, medicaments and biological substances; Z79.899 Other long term (current) drug therapy
CPT/HCPCS: 99283

== ENCOUNTER 2024-05-01 02:53 | Emergency (ER) | payer MEDICARE ==
[~2024-05-01] VITALS: Ht 157.5 cm; Wt 44.5 kg
--- OUTSIDE RECORDS SUMMARY | 2024-05-01 02:54 | XMS ---
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 ( 03/25/2022 ) Edward VISIT COUNT (12 MO.) 7 YOLA Hernandez 6 [facility] Deanna Solano ([place]rey Hale) [address] TOTAL 17 NOTE: Visits indicate total known visits. ED/UCC VISIT TRACKING (12 MO.) 05/01/2024 02:53 [facility]A Cure[place] TYPE: Emergency COMPLAINT: - ALTERED LOC 04/28/2024 16:38 [facility] Curiel [place] TYPE: Emergency COMPLAINT: - INTOXICATION 04/28/2024 08:[facility] [place] TYPE: Emergency COMPLAINT: - PAIN 04/21/2024 15:[address] [facility] [facility] [place] TYPE: Emergency COMPLAINT: - BACK SPASMS,RT LEG REDNESS 04/06/2024 20:[address] [facility] [place] TYPE: Emergency COMPLAINT: - EDWARDS BITE 02/25/2024 16:[address] Deanna HECK ([place] Hale) TYPE: Emergency DIAGNOSES: - Alcohol use, unspecified with intoxication, unspecified - Non-pressure chronic ulcer of back with unspecified severity - Rectal Pain 02/24/2024 07:32 [facility] [place] (Geoffrey Hale) TYPE: Emergency DIAGNOSES: - Alcohol use, unspecified with intoxication, uncomplicated - Alcohol Intoxication 02/23/2024 10:10 [facility] Geoffrey HECK ([place] Hale) TYPE: Emergency DIAGNOSES: - Acquired absence of left leg above knee - Acquired absence of right leg below knee - Alcohol dependence, uncomplicated - Other injury of unspecified body region, initial encounter - Leg Pain (Non-traumatic) - wound check 02/22/2024 14:27 [facility] [place] (Geoffrey Hale) TYPE: Emergency DIAGNOSES: - Procedure and treatment not carried out because of patient's decision for other reasons - ambulance - Extremity Pain 02/19/2024 04:02 Y[facility]A Curiel [place] TYPE: Emergency COMPLAINT: - MEDICAL DIAGNOSES: - Alcohol abuse with intoxication, unspecified - Atherosclerosis of [place] arteries of extremities with rest pain, right leg - Dependence on wheelchair - Homelessness unspecified - Nontraumatic ischemic infarction of muscle, unspecified lower leg - 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 - Presence of other vascular implants and grafts - Procedure and treatment not carried out because of patient's decision for other reasons - Right lower quadrant pain - Unilateral inguinal hernia, without obstruction or gangrene, not specified as recurrent 02/13/2024 06:59 [facility]iel [place] TYPE: Emergency COMPLAINT: - FALL 02/02/2024 [facility] DIAGNOSES: - Pain in left leg - Pain in right leg - Vomiting, unspecified - bilateral leg pain,vomiting - Emesis - Leg Pain 01/01/2024 18:20 [facility] [facility] TYPE: Emergency DIAGNOSES: - Acute respiratory failure with hypoxia - Alcohol use, unspecified with intoxication, uncomplicated - Chronic obstructive pulmonary disease with (acute) exacerbation - Abdominal Pain - Altered Mental Status 09/22/2023 23[facility] [place] [facility] DIAGNOSES: - Headache, unspecified 09/10/2023 22[facility] [facility] [facility] 08/26/2023 18:[address] [facility] [address] [facility] DIAGNOSES: - Unspecified injury of head, initial encounter 07/15/2023 09:55 [facility] [place] [facility] DIAGNOSES: 23213. Worms 24788. Worms/helminths 56375. Cellulitis of right lower limb . Other injury of unspecified body region, initial encounter INPATIENT VISIT TRACKING (12 MO.) 04/21/2024 18:[address] [facility] [address] 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, right leg - Body mass index [BMI] 19.9 or less, adult - Cachexia - Cellulitis of right lower limb - Chronic obstructive pulmonary disease, unspecified - Dehiscence of amputation stump - Disruption of external operation (surgical) wound, not elsewhere classified, initial encounter - Do not resuscitate - Homelessness unspecified - Hypocalcemia - Hypokalemia - Hypomagnesemia - Hypotension, unspecified - 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 - Nicotine dependence, cigarettes, uncomplicated - Osteomyelitis, unspecified - Other chronic pain - Other disorders of phosphorus metabolism - Other disorders of plasma-protein metabolism, not elsewhere classified - 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 [facility] [place] TYPE: Medical Surgical COMPLAINT: - SEPSIS,CELLULITIS,PVD, [...] Thrombocytopenia, unspecified - Thrombocytopenia, unspecified 02/13/2024 11:[address] [facility] [place] TYPE: Medical [...] specified as acute or chronic 01/01/2024 18:20 [facility] Geoffrey HECK ([place]offrey Hale) TYPE: Medical [...] malnutrition - Unspecified toxic encephalopathy 09/10/2023 22:45 [facility] [place] TYPE: Surgery DIAGNOSES: - Alcohol dependence with withdrawal, uncomplicated - Alcoholic cirrhosis of liver without ascites - Cellulitis of right lower limb - Homelessness unspecified - Hypokalemia - Hypomagnesemia - Moderate protein-calorie malnutrition - Nausea with vomiting, unspecified - Pneumonitis due to inhalation of food and vomit - Sepsis, unspecified organism - Severe sepsis with septic shock [email or web address]
[2024-05-01] MEDS ORDERED: EPINEPHrine HCL 1 MG/10 ML SYR IV SCH ×3 (03:05→08:15)
[2024-05-01] MEDS ORDERED: ROCURONIUM BROMIDE 50 MG/5 ML SYR IV ONE ×3 (03:05→08:15)
[2024-05-01] MEDS ORDERED: SODIUM CHLORIDE 0.9% 1,000 ML IV PRN (03:25)
[2024-05-01] MEDS ORDERED: EPINEPHrine HCL 4 MG in DEXTROSE 5% 250 ML IV SCH (03:40)
[2024-05-01] MEDS ORDERED: SODIUM CHLORIDE 0.9% 1,000 ML IV SCH (03:40)
[2024-05-01 03:50] LABS: BASE EXCESS, BLOOD GAS -6.4 mmol/L (-2-2); HCO3, BLOOD GAS 22.7 mmol/L (22-26); O2 SATURATION, BLOOD GAS 88.2 % (95.0-100.0); PCO2, BLOOD GAS 66.3 mmHg (35-45); PH, BLOOD GAS 7.14 (7.35-7.45); TOTAL CO2, BLOOD GAS 24.7
[2024-05-01 03:52] LABS: BASOPHILS 0.5 % (0-2); EOSINOPHILS 0.5 % (0-6); HEMATOCRIT 27.1 % (35.0-50.0); HEMOGLOBIN 8.8 g/dL (12.0-18.0); LYMPHOCYTES 34.6 % (24-44); MCH 30.5 (27-36); MCHC 32.4 g/dl (30-36); MCV 94.1 fl (81-99); MONOCYTES 15.7 % (0-12); NEUTROPHILS 48.7 % (39-80); PLATELET COUNT 198 K/uL (140-440); RBC 2.88 M/ul (4.3-5.7); RDW 17.6 (10.5-15.0)
[2024-05-01 04:03] LABS: ALBUMIN 2.2 g/dL (3.4-5.0); ALBUMIN/GLOBULIN RATIO 0.56 (1.1-2.4); ANION GAP 21.9 (7-21); BILIRUBIN, TOTAL 0.8 ng/dL (0.2-1.0); BUN/CREATININE RATIO 25.58 (6.0-28.6); CALCIUM 7.9 mg/dL (8.5-10.1); CREATININE, SERUM 0.86 mg/dL (0.70-1.30); MAGNESIUM 2.1 mg/dL (1.8-2.4); POTASSIUM 4.9 mmol/L (3.5-5.1); PROTEIN, TOTAL 6.1 g/dL (6.4-8.2)
[2024-05-01] MEDS ORDERED: DAPTOmycin 500 MG/10 ML VIAL IV ONE (04:15)
[2024-05-01] MEDS ORDERED: CALCIUM CHLORIDE 1,000 MG/10 ML SYR IV ONE (04:30)
[2024-05-01] MEDS ORDERED: DEXTROSE 50% 50 ML SYR IV ONE (04:30)
[2024-05-01 04:41] LABS: INR 1.61 (0.80-1.30); PARTIAL THROMBOPLASTIN TIME 42.3 Sec (22.9-41.3); PROTIME 19.1 Sec (11.2-14.2)
[2024-05-01 04:46] LABS: BILIRUBIN, URINE NEGATIVE (negative); BLOOD/HGB, URINE NEGATIVE (Negative); KETONE, URINE NEGATIVE (Negative); LEUK ESTERASE, URINE NEGATIVE (negative); NITRITE, URINE NEGATIVE (negative)
[2024-05-01 05:16] LABS: BASOPHILS 1.3 % (0-2); EOSINOPHILS 0.3 % (0-6); HEMATOCRIT 24.9 % (35.0-50.0); LYMPHOCYTES 19.2 % (24-44); MCHC 31.9 g/dl (30-36); MCV 96.9 fl (81-99); MONOCYTES 10.2 % (0-12); PLATELET COUNT 178 K/uL (140-440); RBC 2.57 M/ul (4.3-5.7); RDW 17.8 (10.5-15.0)
[2024-05-01 05:30] LABS: ALBUMIN 1.9 g/dL (3.4-5.0); ALBUMIN/GLOBULIN RATIO 0.53 (1.1-2.4); ANION GAP 24.4 (7-21); BILIRUBIN, TOTAL 0.7 ng/dL (0.2-1.0); BUN/CREATININE RATIO 23.65 (6.0-28.6); CALCIUM 10.9 mg/dL (8.5-10.1); CREATININE, SERUM 0.93 mg/dL (0.70-1.30); MAGNESIUM 2.3 mg/dL (1.8-2.4); PROTEIN, TOTAL 5.5 g/dL (6.4-8.2)
[2024-05-01] MEDS ORDERED: PIPERACILLIN/TAZOBACTAM 3.375 GM in DEXTROSE 5% 100 ML IV ONE (05:30)
[2024-05-01 05:32] LABS: AMPHETAMINES, URINE NEGATIVE (NEGATIVE); BARBITURATES, URINE NEGATIVE (NEGATIVE); BENZODIAZEPINE, URINE NEGATIVE (NEGATIVE); BUPRENORPHINE, URINE NEGATIVE (NEGATIVE); CANNABINOID, URINE NEGATIVE (NEGATIVE); COCAINE, URINE NEGATIVE (NEGATIVE); ECSTASY, URINE NEGATIVE (NEGATIVE); FENTANYL, URINE NEGATIVE (NEGATIVE); METHADONE, URINE NEGATIVE (NEGATIVE); OPIATES, URINE NEGATIVE (NEGATIVE); OXYCODONE, URINE POSITIVE (NEGATIVE); PHENCYCLIDINE, URINE NEGATIVE (NEGATIVE)
[2024-05-01 05:41] LABS: POTASSIUM 2.4 mmol/L (3.5-5.1)
[2024-05-01 05:51] LABS: INFLUENZA B NAA NEGATIVE (NEGATIVE); RESPIRATORY SYNCYTIAL VIR NAA NEGATIVE (NEGATIVE)
[2024-05-01] MEDS ORDERED: DEXTROSE 5% 100 ML IV ONE (05:51)
[2024-05-01 06:00] LABS: ABO A
[2024-05-01] MEDS ORDERED: POTASSIUM CHLORIDE 20 MEQ/100 ML BAG IV ONE (06:00)
[2024-05-01 06:01] LABS: ABO A; RH POSITIVE
[2024-05-01 06:01] LABS: ANTIBODY SCREEN NEGATIVE; IS CROSSMATCH COMPATIBLE; RH POSITIVE
[2024-05-01] MEDS ORDERED: NOREPINEPHRINE BITARTRATE 250 ML IV ONE (06:04)
[2024-05-01 06:14] LABS: BASE EXCESS, BLOOD GAS -20.2 mmol/L (-2-2); HCO3, BLOOD GAS 10.6 mmol/L (22-26); O2 SATURATION, BLOOD GAS 89.5 % (95.0-100.0); PCO2, BLOOD GAS 31.1 mmHg (35-45); PH, BLOOD GAS 7.07 (7.35-7.45); PO2, BLOOD GAS 51 mmHg (80-100); TOTAL CO2, BLOOD GAS 12.1
[2024-05-01 06:16] LABS: OXYGEN RECEIVED, BLOOD GAS 40%
[2024-05-01] MEDS ORDERED: PHYTONADIONE 10 MG/ML AMP ONE (06:24)
[2024-05-01] MEDS ORDERED: NOREPINEPHRINE BITARTRATE 250 ML IV SCH (06:45)
[2024-05-01] MEDS ORDERED: PHYTONADIONE 1 MG/0.5 ML AMP IM ONE (06:45)
[2024-05-01] MEDS ORDERED: SODIUM BICARBONATE 50 MEQ/50 ML SYR IV SCH ×2 (08:15)
[2024-05-01] MEDS ORDERED: ATROPINE SULFATE 1 MG/10 ML SYR IV SCH ×2 (08:15)
[2024-05-01] MEDS ORDERED: LINEZOLID 600 MG BAG IV ONE (08:30)
[2024-05-01 08:45] LABS: PH, VENOUS 7.115 (7.31-7.41)
[2024-05-01 08:54] LABS: INR 1.8 (0.80-1.30); PROTIME 20.9 Sec (11.2-14.2)
[2024-05-01] MEDS ORDERED: SODIUM BICARBONATE 150 MEQ in DEXTROSE 5% 1,000 ML IV SCH (09:15)
[2024-05-01 09:20] VITALS: BP 93/75
--- NOTE | 2024-05-01 19:29 | EKG ---
[facility] [address] [facility] [place] [address] Signed Sinus bradycardia with sinus arrhythmia with 1st degree AV block ST \T\ T wave abnormality, consider inferior ischemia ST \T\ T wave abnormality, consider anterior ischemia Prolonged QT Abnormal ECG When compared with ECG of 15-APR-2024 08:58, [place] interval has increased Questionable change in QRS duration Confirmed by Isma Brenner MD ([id number]) on 05/01/2024 7:29:09 PM Electronically Signed By: ISMA BRENNER MD 05/01/24 1929 PATIENT NAME: MELA MICHELLE Electrocardiogram DATE OF : 56 PHYSICIAN: ISMA BRENNER MD REPORT #: [id number] REPORT IS CONFIDENTIAL AND NOT TO BE RELEASED WITHOUT AUTHORIZATION
== END 2024-05-01 09:23 | disposition short-term general hospital (02) ==
LOC: ED 02:53
PROVIDERS: Family Medicine
DX: I46.9 Cardiac arrest, cause unspecified (principal); T68.XXXA Hypothermia, initial encounter; M86.9 Osteomyelitis, unspecified; J93.9 Pneumothorax, unspecified; J44.9 Chronic obstructive pulmonary disease, unspecified; Z95.1 Presence of aortocoronary bypass graft; Z91.048 Other nonmedicinal substance allergy status; Z79.899 Other long term (current) drug therapy; Z11.52 Encounter for screening for COVID-19; X31.XXXA Exposure to excessive natural cold, initial encounter; Z89.612 Acquired absence of left leg above knee; Z89.611 Acquired absence of right leg above knee
CPT/HCPCS: 31500; 31720; 36415; 36430; 36556; 36600; 51702; 70450; 71045; 71250; 74176; 80053; 80307; 81003; 82803; 83605; 83735; 84484; 85025; 85060; 85610; 85730; 86850; 86900; 86901; 86922; 87040; 87502; 92950; 93005; 93010; 94002; 94799; 99285-25; C1894; G0480; J0171; J0461; J0878; J2020; J2543; J3430; J3480; J3490; J7030; J7060; P9016; P9059; U0002